=== PATIENT | female | born 1960 | race African-American/Black ===

== ENCOUNTER 2018-06-07 11:33 | Day surgery (SDC) | payer OTHER ==
[2018-06-07] MEDS ORDERED: PROPOFOL 20 ML ONE (13:51)
--- NOTE | 2018-06-07 13:57 | PROC ---
Endoscopy Procedure Endoscopy procedure completed. Please see scanned procedure report.
[2018-06-07 14:40] VITALS: TEMP 99.2
[2018-06-07 15:35] VITALS: BP 115/58; PULSE 60
== END 2018-06-07 15:55 | disposition home or self-care (01) ==
LOC: JASU-ENDO 11:33
PROVIDERS: ATTEND Internal Medicine Gastroenterology
PROC: 0DJD8ZZ Inspection of Lower Intestinal Tract, Via Natural or Artificial Opening Endoscopic (ICD-10-PCS; principal; 2018-06-07 12:30)
DX: Z12.11 Encounter for screening for malignant neoplasm of colon (principal); K64.8 Other hemorrhoids

== ENCOUNTER 2019-02-19 20:13 | Observation (INO) | payer OTHER ==
[2019-02-19] MEDS ORDERED: SODIUM CHLORIDE 0.9% 500 ML INFUS.BAG IV ONE (21:12)
[2019-02-19] MEDS ORDERED: morphine CARPU-JECT 2 MG/1 ML DISP.SYRIN IVPUSH ONE ×2 (21:12→21:34)
[2019-02-19] MEDS ORDERED: MORPHINE SULFATE 2 MG/ML VIAL ONE ×2 (21:14→21:34)
[2019-02-19] MEDS ORDERED: METOCLOPRAMIDE HCL INJECTION 10 MG/2 ML VIAL IVPUSH ONE (21:16)
[2019-02-19] MEDS ORDERED: FAMOTIDINE 20 MG/50 ML IVPB 20 MG/50 ML MG IVPB ONE ×2 (21:17→21:27)
[2019-02-19 21:22] LABS: BASO % 0.5 % (0-2.0); EOS % 0.1 % (0-4.5); HEMATOCRIT 40.5 % (32.4-45.2); HEMOGLOBIN 13.8 GM/dL (10.7-15.3); LYMPH % 6.5 % (8-40); MCH 33.7 pg (25.7-33.7); MCHC 34.1 g/dl (32.0-36.0); MEAN CELL VOLUME 98.9 fl (80-96); MEAN PLT VOLUME 9.2 fl (7.5-11.1); MONO % 2.8 % (3.8-10.2); NEUT % 90.1 % (42.8-82.8); PLATELET COUNT 247 K/MM3 (134-434); RBC 4.09 M/mm3 (3.60-5.2); RDW 13.7 % (11.6-15.6); WHITE BLOOD COUNT 16.1 K/mm3 (4.0-10.0)
[2019-02-19] MEDS ORDERED: METOCLOPRAMIDE HCL INJECTION 10 MG/2 ML VIAL ONE (21:27)
[2019-02-19] MEDS ORDERED: ACETAMINOPHEN INJECTION 100 ML IVPB ONE (21:37)
--- NOTE | 2019-02-19 21:44 | PDOC ---
History of Present Illness - General History Source: Patient - History of Present Illness Initial Comments: 02/19/19 21:45 The patient is a 58 year old female with a past medical history of epilepsy and stent here today for evaluation of abdominal pain. She reports that she has been having 10/10 abdominal pain since 10 AM today which is localized to the epigastric pain which waxes and wanes in severity but is always high severity. She notes associated nausea, non-bloody non-bilious vomiting (10 episodes), and non-bloody non-bilious diarrhea. She reports that her last PO intake was 10 AM. She reports that she went to a senior living [facility] last night and was drinking and eating but reports that no one else got sick. She also notes dry mouth. Patient denies headache, lightheadedness. Denies fever, chills. Denies chest pain, shortness of breath. Denies lower extremity edema. Allergies: NKA Surgical history: Torn leg muscle repair and hemorrhoid repair. Social history: Denies tobacco and illicit drugs. Confirms social drinking. Patient is a retired [employer] employee PCP: Nick Garcia <Damian Meyer - Last Filed: 02/19/19 21:45> <Mamie Pandey - Last Filed: 02/20/19 01:00> - General Chief Complaint: Nausea/Vomiting Stated Complaint: VOMITING/DIARRHEA Time Seen by Provider: 02/19/19 21:11 Past History <Damian Meyer - Last Filed: 02/19/19 21:45> - Past Medical History COPD: No HTN: Yes Seizures: Yes - Surgical History Cardiac Surgery: Yes (STENT) - Suicide/Smoking/Psychosocial Hx Smoking History: Never smoked Have you smoked in the past 12 months: No Hx Alcohol Use: Yes (OCCASIONALLY) Drug/Substance Use Hx: No <Mamie Pandey - Last Filed: 02/20/19 01:00> - Past Medical History Allergies/Adverse Reactions: Allergies Allergy/AdvReac Type Severity Reaction Status Date / Time No Known Allergies Allergy Verified 02/19/19 20:32 Home Medications: Ambulatory Orders Ascorbic Acid [Vitamin C] 500 mg PO DAILY 06/07/18 Aspirin [ASA -] 81 mg PO DAILY 06/07/18 Atenolol [Tenormin -] 50 mg PO DAILY 06/07/18 Calcium Citrate/Vitamin D2 [Uriel-Citrate Plus Vitamin D Tab] 1 each PO DAILY Carbamazepine [Tegretol -] 200 mg PO BID 06/07/18 [place]-3/Dha/Epa/Fish Oil [Fish Oil 500 mg Softgel] 1 each PO DAILY 06/07/18 Simvastatin 20 mg PO DAILY 06/07/18 Review of Systems - Review of Systems Able to Perform ROS?: Yes Comments:: 02/19/19 21:45 GENERAL/CONSTITUTIONAL: No fever or chills. No weakness. HEAD, EYES, EARS, NOSE AND THROAT: +dry mouth. No change in vision. No ear pain or discharge. No sore throat. CARDIOVASCULAR: No chest pain or shortness of breath. RESPIRATORY: No cough, wheezing, or hemoptysis. GASTROINTESTINAL: +abdominal pain. +nausea. +diarrhea. +vomiting. No constipation. GENITOURINARY: No dysuria, frequency, or change in urination. MUSCULOSKELETAL: No joint or muscle swelling or pain. No neck or back pain. SKIN: No rash NEUROLOGIC: No headache, vertigo, loss of consciousness, or change in strength/ sensation. ENDOCRINE: No increased thirst. No abnormal weight change. HEMATOLOGIC/LYMPHATIC: No anemia, easy bleeding, or history of blood clots. ALLERGIC/IMMUNOLOGIC: No hives or skin allergy. <Damian Meyer - Last Filed: 02/19/19 21:45> *Physical Exam - Vital Signs Last Vital Signs Temp Pulse Resp BP Pulse Ox 97.9 F 86 16 150/74 100 02/19/19 20:28 02/19/19 20:28 02/19/19 20:28 02/19/19 20:28 02/19/19 20:28 - Physical Exam Comments: 02/19/19 21:45 GENERAL: Awake, alert, and fully oriented, in no acute distress HEAD: No signs of trauma EYES: PERRLA, EOMI, sclera anicteric, conjunctiva clear ENT: Auricles normal inspection, hearing grossly normal, nares patent, oropharynx clear without exudates. Moist mucosa NECK: Normal ROM, supple, no lymphadenopathy, JVD, or masses LUNGS: Breath sounds equal, clear to auscultation bilaterally. No wheezes, and no crackles HEART: Regular rate and rhythm, normal S1 and S2, no murmurs, rubs or gallops ABDOMEN: +epigastric tenderness to palpation. +decreased bowel sounds. + distention. Soft. No guarding, no rebound. No masses EXTREMITIES: Normal range of motion, no edema. No clubbing or cyanosis. No cords, erythema, or tenderness NEUROLOGICAL: Cranial nerves II through XII grossly intact. Normal speech, normal gait SKIN: Warm, Dry, normal turgor, no rashes or lesions noted. <Damian Meyer - Last Filed: 02/19/19 21:45> - Vital Signs Last Vital Signs Temp Pulse Resp BP Pulse Ox 97.9 F 86 16 150/74 100 02/19/19 20:28 02/19/19 20:28 02/19/19 20:28 02/19/19 20:28 02/19/19 20:28 <Mamie Pandey - Last Filed: 02/20/19 01:00> Heart Score/ECG Review - Electrocardiogram EKG: Non specific repolarization disturbance - Age Age: 45-65 - Risk Factors Risk Factors Heart Score: Yes Smoking History, Yes Hx Obesity - ECG Intrepretation Rhythm: Regular Rhythm - [facility]: Normal - P and MO Prominent R with upright T in V1 (true posterior [place]): No Delta Wave(s) Present: No WPW: No - QRS Poor R Wave Progression: No Q Wave Present: No <Mamie Pandey - Last Filed: 02/20/19 01:00> ED Treatment Course - LABORATORY CBC & Chemistry Diagram: 02/19/19 21:10 02/19/19 21:10 - ADDITIONAL ORDERS Additional order review: 02/19/19 21:10 RBC 4.09 MCV 98.9 H MCHC 34.1 RDW 13.7 MPV 9.2 Neutrophils % 90.1 H Lymphocytes % 6.5 L Monocytes % 2.8 L Eosinophils % 0.1 Basophils % 0.5 - Medications Given in the ED: ED Medications Discontinued Medications Generic Name Dose Route Start Last Admin Trade Name Erickq PRN Reason Stop Dose Admin Metoclopramide HCl 10 mg 02/19/19 21:16 02/19/19 21:31 Reglan Injection - IVPUSH 02/19/19 21:17 10 mg ONCE ONE Administration Morphine Sulfate 2 mg 02/19/19 21:12 02/19/19 21:23 Morphine Injection - IVPUSH 02/19/19 21:13 2 mg ONCE ONE Administration Morphine Sulfate 2 mg 02/19/19 21:34 02/19/19 21:42 Morphine Injection - IVPUSH 02/19/19 21:35 2 mg ONCE ONE Administration Sodium Chloride 1,000 ml 02/19/19 21:12 02/19/19 21:23 Normal Saline - IV 02/19/19 21:13 1,000 ml ONCE ONE Administration <Damian Meyer - Last Filed: 02/19/19 21:45> - LABORATORY CBC & Chemistry Diagram: 02/19/19 21:10 02/19/19 21:10 - ADDITIONAL ORDERS Additional order review: 02/19/19 21:10 RBC 4.09 MCV 98.9 H MCHC 34.1 RDW 13.7 MPV 9.2 Neutrophils % 90.1 H Lymphocytes % 6.5 L Monocytes % 2.8 L Eosinophils % 0.1 Basophils % 0.5 - RADIOLOGY Radiology Studies Ordered: Category Date Time Status ABDOMEN FLAT & UPRIGHT [RAD] Stat Radiology 02/19/19 21:17 Ordered CHEST PA & LAT [RAD] Stat Radiology 02/19/19 21:17 Ordered - Medications Given in the ED: ED Medications Discontinued Medications Generic Name Dose Route Start Last Admin Trade Name Freq PRN Reason Stop Dose Admin Metoclopramide HCl 10 mg 02/19/19 21:16 02/19/19 21:31 Reglan Injection - IVPUSH 02/19/19 21:17 10 mg ONCE ONE Administration Morphine Sulfate 2 mg 02/19/19 21:12 02/19/19 21:23 Morphine Injection - IVPUSH 02/19/19 21:13 2 mg ONCE ONE Administration Sodium Chloride 1,000 ml 02/19/19 21:12 02/19/19 21:23 Normal Saline - IV 02/19/19 21:13 1,000 ml ONCE ONE Administration <Mamie Pandey - Last Filed: 02/20/19 01:00> Medical Decision Making - Medical Decision Making 02/19/19 22:07 AMylase lipase LFTs normal 02/19/19 22:24 non-obstructive gas pattern on XR CXR is normal 02/20/19 00:[address] Garcia/ [employer] hospitalist to telemetry observation. <Mamie Pandey - Last Filed: 02/20/19 01:00> *DC/Admit/Observation/Transfer - Attestations Scribe Attestion: 02/19/19 21:46 Documentation prepared by ELIA Horton, acting as forensic medical examiner for Mamie Pandey MD. <Damian Meyer - Last Filed: 02/19/19 21:45> - Discharge Dispostion Decision to Admit order: Yes <Mamie Pandey - Last Filed: 02/20/19 01:00> Diagnosis at time of Disposition: Epigastric pain, Nausea vomiting and diarrhea, CAD (coronary artery disease), Stented coronary artery - Discharge Dispostion Condition at time of disposition: Guarded
[2019-02-19 21:51] LABS: ALK PHOS 100 U/L (45-117); ANION GAP 10 MMOL/L (8-16); BILIRUBIN,TOTAL 0.4 mg/dL (0.2-1); BLOOD UREA NITROGEN 10 mg/dL (7-18); CALCIUM 9.4 mg/dL (8.5-10.1); CHLORIDE 104 mmol/L (98-107); CO2 25 mmol/L (21-32); CREATININE 0.9 mg/dL (0.55-1.3); GLUCOSE,RANDOM 139 mg/dL (74-106); LIPASE 87 U/L (73-393); POTASSIUM 3.3 mmol/L (3.5-5.1); SGOT/AST 22 U/L (15-37); SGPT/ALT 41 U/L (13-61); SODIUM 139 mmol/L (136-145); TOT PROT 7.5 g/dl (6.4-8.2)
[2019-02-19] MEDS ORDERED: MAGNESIUM SULF 50% (8.12 MEQ/2 ML-1 GM VIAL) IVPB ONE (21:51)
[2019-02-19] MEDS ORDERED: POTASSIUM CHLORIDE TABS 20 MEQ TABLET.ER (FP) PO ONE (21:52)
[2019-02-19] MEDS ORDERED: ONDANSETRON 4 MG/2 ML VIAL IVPB ONE (22:22)
--- NOTE | 2019-02-19 22:47 | HP ---
Admitting History and Physical - Primary Care Physician PCP: Nick Garcia - Admission Chief Complaint: Nausea, Vomiting, Diarrhea History of Present Illness: This is a 58 y/o woman with a PMHx of CAD s/p Stent. Who presents to the ED with epigastric pain, non bilious non bloody vomiting and diarrhea. Patient reports after celebrating at her care home alliance party she began having severe epigastric pain with multiple episodes of vomiting and diarrhea. Patient denies any other guests at her alliance party becoming ill. Patient denies fever, chills, cough , dizziness, SOB, CP, palpitations, constipation, dysuria. History Source: Patient Limitations to Obtaining History: No Limitations - Past Medical History Cardiovascular: Yes: CAD, HTN - Past Surgical History Past Surgical History: Yes: Stent - Smoking History Smoking history: Never smoked Have you smoked in the past 12 months: No - Alcohol/Substance Use Hx Alcohol Use: Yes (OCCASIONALLY) History of Substance Use: reports: None - Social History ADL: Independent History of Recent Travel: No Home Medications - Allergies Allergies/Adverse Reactions: Allergies Allergy/AdvReac Type Severity Reaction Status Date / Time No Known Allergies Allergy Verified 02/19/19 20:32 - Home Medications Home Medications: Ambulatory Orders Ascorbic Acid [Vitamin C] 500 mg PO DAILY 06/07/18 Aspirin [ASA -] 81 mg PO DAILY 06/07/18 Atenolol [Tenormin -] 50 mg PO DAILY 06/07/18 Calcium Citrate/Vitamin D2 [Uriel-Citrate Plus Vitamin D Tab] 1 each PO DAILY Carbamazepine [Tegretol -] 200 mg PO BID 06/07/18 [place]-3/Dha/Epa/Fish Oil [Fish Oil 500 mg Softgel] 1 each PO DAILY 06/07/18 Simvastatin 20 mg PO DAILY 06/07/18 Review of Systems - Review of Systems Constitutional: reports: Loss of Appetite Eyes: reports: No Symptoms HENT: reports: No Symptoms Neck: reports: No Symptoms Cardiovascular: reports: No Symptoms Respiratory: reports: No Symptoms Gastrointestinal: reports: Abdominal Pain, Diarrhea, Nausea, Vomiting. denies: Melena, Rectal Bleeding, Vomiting Blood Genitourinary: reports: No Symptoms Breasts: reports: No Symptoms Reported Musculoskeletal: reports: No Symptoms Integumentary: reports: No Symptoms Neurological: reports: No Symptoms Endocrine: reports: No Symptoms Hematology/Lymphatic: reports: No Symptoms Psychiatric: reports: No Symptoms Physical Examination Vital Signs: Vital Signs Temperature 97.9 F 02/19/19 20:28 Pulse Rate 86 02/19/19 20:28 Respiratory Rate 16 02/19/19 20:28 Blood Pressure 150/74 02/19/19 20:28 O2 Sat by Pulse Oximetry (%) 100 02/19/19 20:28 Constitutional: Yes: Well Nourished, No Distress, Calm Eyes: Yes: WNL, Conjunctiva Clear, EOM Intact, PERRL HENT: Yes: WNL, Atraumatic, Normocephalic Neck: Yes: WNL, Supple, Trachea Midline Cardiovascular: Yes: WNL, Regular Rate and Rhythm, S1, S2 Respiratory: Yes: WNL, Regular, CTA Bilaterally Gastrointestinal: Yes: Normal Bowel Sounds, Soft, Abdomen, Obese. No: Tenderness, Tenderness, Epigastrium Renal/: Yes: WNL Breast(s): Yes: WNL Musculoskeletal: Yes: WNL Extremities: Yes: WNL Edema: No Peripheral Pulses WNL: Yes Neurological: Yes: WNL, Alert, Oriented, Cran Nerves II-XII Intact ...Motor Strength: WNL Psychiatric: Yes: WNL, Alert, Oriented Labs: CBC, BMP 02/19/19 21:10 02/19/19 21:10 Laboratory Results - last 24 hr 02/19/19 02/19/19 21:10 21:10 WBC 16.1 H RBC 4.09 Hgb 13.8 Hct 40.5 MCV 98.9 H MCH 33.7 MCHC 34.1 RDW 13.7 Plt Count 247 MPV 9.2 Absolute Neuts (auto) 14.5 H Neutrophils % 90.1 H Lymphocytes % 6.5 L Monocytes % 2.8 L Eosinophils % 0.1 Basophils % 0.5 Nucleated RBC % 0 Sodium 139 Potassium 3.3 L Chloride 104 Carbon Dioxide 25 Anion Gap 10 BUN 10 Creatinine 0.9 Creat Clearance w eGFR 64.31 Random Glucose 139 H Calcium 9.4 Total Bilirubin 0.4 AST 22 ALT 41 Alkaline Phosphatase 100 Creatine Kinase 464 H Creatine Kinase Index 1.2 CK-MB (CK-2) 6.0 H Troponin I < 0.02 Total Protein 7.5 Albumin 4.0 Lipase 87 Imaging - Results Chest X-ray: Image Reviewed X-ray: Image Reviewed EKG: Image Reviewed Problem List - Problems (1) Epigastric pain Assessment/Plan: Likely secondary to Gastritis vs ACS Abdominal Xray image- gas pattern WBC 16, no L shift Blood Cultures-pending Lactic Acid- pending Clear Liquids ad junie Monitor CBC, BMP Monitor vitals Consider GI consult if condition worsens Code(s): R10.13 - EPIGASTRIC PAIN (2) Nausea vomiting and diarrhea Assessment/Plan: See above Zofran prn Stool Culture C- Diff Culture Monitor BMP Monitor vitals Continue IVF Code(s): R11.2 - NAUSEA WITH VOMITING, UNSPECIFIED; R19.7 - DIARRHEA, UNSPECIFIED (3) Abnormal EKG Assessment/Plan: Continue cardiac monitoring Serial enzymes Appreciate Cardiology consult Pt denies chest pain, palpitations Code(s): R94.31 - ABNORMAL ELECTROCARDIOGRAM [ECG] [EKG] (4) CAD (coronary artery disease) Assessment/Plan: Continue home meds EKG- Code(s): I25.10 - ATHSCL HEART DISEASE OF [place] CORONARY ARTERY W/O ANG PCTRS (5) Stented coronary artery Assessment/Plan: s/p Stent Code(s): Z95.5 - PRESENCE OF CORONARY ANGIOPLASTY IMPLANT AND GRAFT Assessment/Plan This is a 58 y/o woman with a PMHx of CAD (stent). Placed in Telemetry Observation for Epigastric Pain, Intractable Nausea and Vomiting, Abnormal EKG for further evaluation of their emergent condition. Plan: See Problem List FEN Replete lytes prn Clear Liquid Diet DVT ppx OOB SCDs Consider AC if LOS > 48 hrs Dispo: Observation Visit type - Emergency Visit Emergency Visit: Yes ED Registration Date: 02/19/19 Care time: The patient presented to the Emergency Department on the above date and was hospitalized for further evaluation of their emergent condition. - New Patient This patient is new to me today: Yes Date on this admission: 02/19/19 - Critical Care Critical Care patient: No
[2019-02-19] MEDS ORDERED: POTASSIUM CHLORIDE ORAL LIQUID 20 MEQ/15 ML ONE (23:14)
[2019-02-19] MEDS ORDERED: MAGNESIUM 1GM/D5W - 2 GM/200 ML IVPB IVPB ONE (23:14)
[2019-02-19] MEDS ORDERED: ONDANSETRON 4 MG/2 ML VIAL ONE (23:14)
[2019-02-20 07:05] LABS: BASO % 0.6 % (0-2.0); EOS % 0.1 % (0-4.5); HEMATOCRIT 37.5 % (32.4-45.2); HEMOGLOBIN 12.8 GM/dL (10.7-15.3); LYMPH % 15.6 % (8-40); MCH 33.4 pg (25.7-33.7); MCHC 34.1 g/dl (32.0-36.0); MEAN CELL VOLUME 98.1 fl (80-96); MEAN PLT VOLUME 8.7 fl (7.5-11.1); MONO % 6.1 % (3.8-10.2); NEUT % 77.6 % (42.8-82.8); PLATELET COUNT 224 K/MM3 (134-434); RBC 3.82 M/mm3 (3.60-5.2); RDW 13.4 % (11.6-15.6); WHITE BLOOD COUNT 14.4 K/mm3 (4.0-10.0)
[2019-02-20 07:48] LABS: ANION GAP 8 MMOL/L (8-16); BLOOD UREA NITROGEN 8 mg/dL (7-18); CALCIUM 8.6 mg/dL (8.5-10.1); CHLORIDE 108 mmol/L (98-107); CO2 25 mmol/L (21-32); CREATININE 0.8 mg/dL (0.55-1.3); GLUCOSE,RANDOM 121 mg/dL (74-106); PHOSPHOROUS 3.9 mg/dL (2.5-4.9); POTASSIUM 3.6 mmol/L (3.5-5.1); SODIUM 141 mmol/L (136-145)
[2019-02-20] MEDS: ATENOLOL 50 MG TABLET (FP) PO SCH (09:17)
[2019-02-20] MEDS: CALCIUM 500MG/VIT-D 200 UNITS COMBO TABLET (FP) PO SCH (09:17)
[2019-02-20] MEDS: carBAMazepine 200 MG TABLET PO SCH ×2 (09:17→22:11)
[2019-02-20] MEDS ORDERED: ASCORBIC ACID 500 MG TABLET (FP) PO SCH (10:00)
[2019-02-20] MEDS: PATIENT'S OWN MEDICATION (NON-FORMULARY) (Omega-3/Dha/Epa/Fish Oil [Fish Oil 500 Mg Softge PO SCH (10:07)
[2019-02-20] MEDS: BUDESONIDE/FORMETEROL FUMARATE 80/4.5 mcg INHALER IH SCH ×2 (11:25→22:11)
[2019-02-20] MEDS ORDERED: ONDANSETRON 4 MG/2 ML VIAL ONE (12:04)
[2019-02-20] MEDS ORDERED: ONDANSETRON 4 MG/2 ML VIAL IVPUSH ONE (12:08)
[2019-02-20] MEDS ORDERED: ONDANSETRON 4 MG/2 ML VIAL IVPUSH PRN (12:26)
[2019-02-20] MEDS ORDERED: ACETAMINOPHEN 325 MG TABLET (FP) PO PRN (12:26)
[2019-02-20] MEDS ORDERED: PANTOPRAZOLE SODIUM 40 MG in SODIUM CHLORIDE 100 ML IVPB SCH ×2 (12:30→22:00)
--- NOTE | 2019-02-20 12:32 | CON.CARD ---
Consult Consult Specialty:: cardiology Referred by:: Jose Reason for Consultation:: Coronary artery disease - History of Present Illness Chief Complaint: Abdominal pain, nausea and vomiting. History of Present Illness: The patient is a 58-year-old obese female, we have a history of hypertension, epilepsy, coronary artery disease and prior stent, now admitted with severe abdominal pains, nausea and vomiting and diarrhea. The patient is in significant distress. Very agitated. Cannot state still because of the pain. No chest pains. No palpitations. No shortness of breath. - History Source History Provided By: Patient, Medical Record Limitations to Obtaining History: No Limitations - Past Medical History Cardio/Vascular: Yes: CAD, HTN - Past Surgical History Past Surgical History: Yes: Stent - Alcohol/Substance Use Hx Alcohol Use: Yes (OCCASIONALLY) History of Substance Use: reports: None - Smoking History Smoking history: Never smoked Have you smoked in the past 12 months: No - Social History ADL: Independent History of Recent Travel: No Home Medications - Allergies Allergies/Adverse Reactions: Allergies Allergy/AdvReac Type Severity Reaction Status Date / Time No Known Allergies Allergy Verified 02/19/19 20:32 - Home Medications Home Medications: Ambulatory Orders Ascorbic Acid [Vitamin C] 500 mg PO DAILY 06/07/18 Aspirin [ASA -] 81 mg PO DAILY 06/07/18 Atenolol [Tenormin -] 50 mg PO DAILY 06/07/18 Calcium Citrate/Vitamin D2 [Uriel-Citrate Plus Vitamin D Tab] 1 each PO DAILY Carbamazepine [Tegretol -] 200 mg PO BID 06/07/18 [place]-3/Dha/Epa/Fish Oil [Fish Oil 500 mg Softgel] 1 each PO DAILY 06/07/18 Simvastatin 20 mg PO DAILY 06/07/18 Review of Systems - Review of Systems Constitutional: reports: Loss of Appetite Eyes: reports: No Symptoms HENT: reports: No Symptoms Neck: reports: No Symptoms Cardiovascular: reports: No Symptoms Respiratory: reports: No Symptoms Gastrointestinal: reports: Abdominal Pain, Diarrhea, Nausea, Vomiting Genitourinary: reports: No Symptoms Breasts: reports: No Symptoms Reported Musculoskeletal: reports: No Symptoms Integumentary: reports: No Symptoms Neurological: reports: No Symptoms Endocrine: reports: No Symptoms Hematology/Lymphatic: reports: No Symptoms Psychiatric: reports: No Symptoms Vital Signs: Vital Signs Temperature 98.1 F 02/20/19 06:57 Pulse Rate 83 02/20/19 06:30 Respiratory Rate 17 02/20/19 00:58 Blood Pressure 151/85 02/20/19 06:30 O2 Sat by Pulse Oximetry (%) 98 02/20/19 06:30 Constitutional: Yes: Moderate Distress, Obese Eyes: Yes: WNL, Conjunctiva Clear, EOM Intact HENT: Yes: WNL, Atraumatic, Normocephalic Neck: Yes: WNL, Supple, Trachea Midline Respiratory: Yes: WNL, Regular, CTA Bilaterally Gastrointestinal: Yes: Soft, Hypoactive Bowel Sounds, Tenderness, Vomiting Renal/: Yes: WNL Cardiovascular: Yes: WNL, Regular Rate and Rhythm JVD: No Carotid Bruit: No PMI: Non-Displaced Heart Sounds: Yes: S1, S2 Musculoskeletal: Yes: WNL Extremities: Yes: WNL Edema: No Peripheral Pulses WNL: Yes Integumentary: Yes: WNL Neurological: Yes: WNL, Alert, Oriented Psychiatric: Yes: WNL, Alert, Oriented - Other Data Labs, Other Data: CBC, BMP 02/20/19 06:30 02/20/19 06:30 Troponin, BNP 02/19/19 02/20/19 02/20/19 21:10 03:08 06:30 Troponin I < 0.02 0.03 0.04 Troponin, BNP 02/19/19 02/20/19 02/20/19 21:10 03:08 06:30 Troponin I < 0.02 0.03 0.04 Assessment/Plan The patient is a 58-year-old obese female, we have a history of hypertension, epilepsy, coronary artery disease and prior stent, now admitted with severe abdominal pains, nausea and vomiting and diarrhea. The patient is in significant distress. Very agitated. Cannot state still because of the pain. No chest pains. No palpitations. No shortness of breath. The patient reports no chest pains. She is breathing quite comfortably. There is no evidence of ischemia nor acute coronary syndrome. Troponins are within normal limits. There is no need for cardiac monitoring at this point. Please achieve good pain control for her abdominal pains.. The patient is in agony. No need for further cardiac workup at this point. Please do not hesitate to call us PRN.
[2019-02-20] MEDS ORDERED: PANTOPRAZOLE SODIUM 40 MG/100 ML BAG IVPB ONE (12:38)
[2019-02-20] MEDS ORDERED: MORPHINE SULFATE 2 MG/ML VIAL IVPUSH PRN (13:11)
[2019-02-20] MEDS ORDERED: MORPHINE SULFATE 2 MG/ML VIAL ONE (13:24)
[2019-02-20] MEDS ORDERED: VANCOMYCIN 1 GM in D5W (PRE-DOCKED) 1,000 MG/250 ML IVPB ONE (14:00)
[2019-02-20] MEDS ORDERED: PIPERACILLIN/TAZOB 3.375 GM 3.375 GM in DEXTROSE 5%-WATER - 50 ML IVPB ONE (14:17)
[2019-02-20] MEDS ORDERED: HYDROmorphone HCL CARPU-JECT 2 MG/1 ML DISP.SYRIN IVPUSH ONE (14:17)
[2019-02-20] MEDS ORDERED: HYDROmorphone HCl 2 MG/ML VIAL IVPUSH ONE (14:17)
--- NOTE | 2019-02-20 14:25 | PN ---
Progress Note (short form) - Note Progress Note: ID consult dictated imp/reccd 58 yo female seen in ER with abominal pain, nausea and vomiting and nonbloody diarrhea that began after she returned home Thursday night (her nursing home [facility]) she ate baked chicken and salad, drank ETOH did not feel better all day on Thursday and came to ED last night no further vomiting or diarrhea since arrival to ED continues with severe abdominal pain had a fever of 101.3 overnight she reports chills normal lipase cxray/axray in ED unremarkable also has elevated leukocytes acute severe abdominal pain ?food poisoning ?gastroenteritis agree with ct scan abd/pelvis blood cultures were sent empiric zosyn pending further workup continue IVF surgery/GI to evaluate d/w hospitalist Problem List - Problems (1) Abdominal pain Code(s): R10.9 - UNSPECIFIED ABDOMINAL PAIN (2) Nausea vomiting and diarrhea Code(s): R11.2 - NAUSEA WITH VOMITING, UNSPECIFIED; R19.7 - DIARRHEA, UNSPECIFIED
[2019-02-20] MEDS ORDERED: HYDROmorphone HCl 2 MG/ML VIAL ONE (14:26)
--- NOTE | 2019-02-20 14:29 | PN ---
Progress Note, Physician Chief Complaint: Acute Abdominal Pain History of Present Illness: c/o excruciating diffuse abdominal pain +N/V/D last vomiting and diarrhea prior to coming in to the hospital Had chicken+salad at her own shelter constitution party EKG-NSR 1st dose of morphine helped, but repeat dose didn't Just finished CT abd Received PPI, Reglan, Zofran - Current Medication List Current Medications: Active Medications Acetaminophen (Tylenol -) 650 mg PO Q4H PRN PRN Reason: PAIN OR FEVER Ascorbic Acid (Vitamin C -) 500 mg PO DAILY [facility] Last Admin: 02/20/19 09:17 Dose: 500 mg Aspirin (Asa -) 81 mg PO HS [facility] Atenolol (Tenormin -) 50 mg PO DAILY [facility] Last Admin: 02/20/19 09:17 Dose: 50 mg Atorvastatin Calcium (Lipitor -) 10 mg PO HS [facility] Budesonide/Formoterol Fumarate (Symbicort 80/4.5mcg -) 2 puff IH BID [facility] Last Admin: 02/20/19 11:25 Dose: Not Given Calcium Carbonate/Cholecalciferol (Os-Uriel 500+D -) 1 tab PO DAILY [facility] Last Admin: 02/20/19 09:17 Dose: 1 tab Carbamazepine (Tegretol -) 200 mg PO BID [facility] Last Admin: 02/20/19 09:17 Dose: 200 mg Hydromorphone HCl (Dilaudid Injection -) 2 mg IVPUSH ONCE ONE Stop: 02/20/19 14:18 Pantoprazole Sodium 40 mg/ (Sodium Chloride) 100 mls @ 200 mls/hr IVPB DAILY [facility] Last Admin: 02/20/19 12:40 Dose: 200 mls/hr Piperacillin Sod/Tazobactam (Sod 3.375 gm/ Dextrose) 50 mls @ 100 mls/hr IVPB ONCE ONE; Protocol Stop: 02/20/19 14:46 Morphine Sulfate (Morphine Sulfate) 2 mg IVPUSH Q4H PRN PRN Reason: PAIN LEVEL 6-10 Last Admin: 02/20/19 13:28 Dose: 2 mg Non-Formulary Medication ([place]-3/Dha/Epa/Fish Oil [Fish Oil 500 Mg Softgel]) 1 each PO DAILY [facility] Last Admin: 02/20/19 10:07 Dose: Not Given Ondansetron HCl (Zofran Injection) 4 mg IVPUSH Q6H PRN PRN Reason: NAUSEA AND/OR VOMITING Vancomycin HCl (Vancomycin (Pre-Docked)) 1,000 mg IVPB ONCE ONE; Protocol Stop: 02/20/19 14:18 - Objective Vital Signs: Vital Signs Temperature 98.1 F 02/20/19 06:57 Pulse Rate 72 02/20/19 13:40 Respiratory Rate 20 02/20/19 13:40 Blood Pressure 130/97 02/20/19 13:40 O2 Sat by Pulse Oximetry (%) 100 02/20/19 13:40 Constitutional: Yes: Well Nourished, Moderate Distress Cardiovascular: Yes: Regular Rate and Rhythm Respiratory: Yes: Regular Gastrointestinal: Yes: Normal Bowel Sounds, Soft, Tenderness (diffuse), Tenderness, Epigastrium, Tenderness, Rebound Musculoskeletal: Yes: WNL Extremities: Yes: WNL Edema: No Peripheral Pulses WNL: Yes Neurological: Yes: Alert, Oriented Psychiatric: Yes: Alert, Oriented Labs: CBC, BMP 02/20/19 06:30 02/20/19 06:30 Problem List - Problems (1) Abdominal pain Assessment/Plan: -CT abd/pelvis unremarkable -Seen by GI and ID -Gastritis vs infectious -PPI BID -Morphine 4 mg IVP Q4HPRN -NPO except meds -gentle IVF -IV abx -stool microbiology -Zofran 4 mg IVP Q6H PRN Code(s): R10.9 - UNSPECIFIED ABDOMINAL PAIN (2) History of seizure disorder Assessment/Plan: -Continue tegretol 200 mg po bid Code(s): Z86.69 - PERSONAL HISTORY OF DIS OF THE NERVOUS SYS AND SENSE ORGANS (3) Nausea vomiting and diarrhea Assessment/Plan: -CT abd/pelvis unremarkable -Seen by GI and ID -Gastritis vs infectious -PPI BID -Morphine 4 mg IVP Q4HPRN -NPO except meds -gentle IVF -IV abx -stool microbiology -Zofran 4 mg IVP Q6H PRN Code(s): R11.2 - NAUSEA WITH VOMITING, UNSPECIFIED; R19.7 - DIARRHEA, UNSPECIFIED Assessment/Plan see problem list observe, if stable can be discharged tomorrow
[2019-02-20 14:58] LABS: EPI CELLS 11.1 /HPF (0-5/HPF); URINE APPEARANCE CLEAR; URINE BACTERIA 131.1 /hpf (NEGATIVE); URINE BILIRUBIN NEGATIVE (NEGATIVE); URINE CASTS 13 /hpf (0-8); URINE COLOR YELLOW; URINE GLUCOSE (UA) NEGATIVE (NEGATIVE); URINE KETONE TRACE (NEGATIVE); URINE LEUK ESTERASE TRACE (NEGATIVE); URINE NITRITE NEGATIVE (NEGATIVE); URINE PROTEIN TRACE (NEGATIVE); URINE RBC 7 /hpf (0-4); URINE WBC 5 /hpf (0-5)
--- NOTE | 2019-02-20 14:58 | CON.GI ---
Consult Consult Specialty:: GI Referred by:: Mitchell Hollis Reason for Consultation:: Abdominal pain, vomiting, diarrhea - History of Present Illness Chief Complaint: vomiting, diarrhea, abd pain History of Present Illness: 58 y.o. woman developed abdominal pain, diarrhea, vomiting, and sweats about 6- 8 hours after a penitentiary libertarian in which she had appetizers, hot dogs, and alcoholic drinks. History of epilepsy, no seizure in many years by her report. In ER found to have elevated WBC, somewhat elevated CPK, normal troponin, nl LFTs, negative abdominal CT scan. No diarrhea or vomiting in past 20 hours. - Past Medical History HOSPITAL INTERNSHIP: Yes: Seizure Cardio/Vascular: Yes: CAD, HTN - Past Surgical History Past Surgical History: Yes: Stent - Alcohol/Substance Use Hx Alcohol Use: Yes (OCCASIONALLY) History of Substance Use: reports: None - Smoking History Smoking history: Never smoked Have you smoked in the past 12 months: No - Social History ADL: Independent History of Recent Travel: No Home Medications - Allergies Allergies/Adverse Reactions: Allergies Allergy/AdvReac Type Severity Reaction Status Date / Time No Known Allergies Allergy Verified 02/19/19 20:32 - Home Medications Home Medications: Ambulatory Orders Ascorbic Acid [Vitamin C] 500 mg PO DAILY 06/07/18 Aspirin [ASA -] 81 mg PO DAILY 06/07/18 Atenolol [Tenormin -] 50 mg PO DAILY 06/07/18 Calcium Citrate/Vitamin D2 [Uriel-Citrate Plus Vitamin D Tab] 1 each PO DAILY Carbamazepine [Tegretol -] 200 mg PO BID 06/07/18 [place]-3/Dha/Epa/Fish Oil [Fish Oil 500 mg Softgel] 1 each PO DAILY 06/07/18 Simvastatin 20 mg PO DAILY 06/07/18 Physical Exam-GI Vital Signs: Vital Signs Temperature 98.1 F 02/20/19 06:57 Pulse Rate 72 02/20/19 13:40 Respiratory Rate 20 02/20/19 13:40 Blood Pressure 130/97 02/20/19 13:40 O2 Sat by Pulse Oximetry (%) 100 02/20/19 13:40 Constitutional: Yes: Obese ...Auscultate: Yes: Normoactive Bowel Sounds ...Palpate: Yes: Other (No tenderness at all on exam now) Labs: CBC, BMP 02/20/19 06:30 02/20/19 06:30 Imaging - Results Cat Scan: Report Reviewed, Image Reviewed Problem List - Problems (1) Nausea vomiting and diarrhea Code(s): R11.2 - NAUSEA WITH VOMITING, UNSPECIFIED; R19.7 - DIARRHEA, UNSPECIFIED Assessment/Plan Likely food poisoning or food-borne infection. If she has more diarrhea would obtain stool culture for enteric pathogens, stool for C.difficile, norovirus. No sign of pancreatitis or acute surgical abdomen. Note she had a negative colonoscopy last year.
[2019-02-20] MEDS ORDERED: PIPERACILLIN/TAZOB 3.375 GM 3.375 GM/50 ML BAG IVPB ONE ×2 (15:18→20:51)
[2019-02-20] MEDS ORDERED: VANCOMYCIN 1 GRAM (PRE-DOCKED) 1,000 MG/250 ML BAG IVPB ONE (15:18)
[2019-02-20] MEDS: PIPERACILLIN/TAZOB 3.375 GM 3.375 GM in DEXTROSE 5%-WATER - 50 ML IVPB SCH ×2 (15:53→21:09)
[2019-02-20] MEDS: PANTOPRAZOLE SODIUM 40 MG VIAL IVPUSH SCH (21:07)
[2019-02-20] MEDS ORDERED: ATORVASTATIN CA 10 MG TABLET (FP) ONE (21:46)
[2019-02-20] MEDS ORDERED: PANTOPRAZOLE SODIUM 40 MG VIAL ONE (21:46)
[2019-02-20] MEDS ORDERED: carBAMazepine 200 MG TABLET ONE (21:46)
[2019-02-20] MEDS ORDERED: ASPIRIN 81 MG CHEWABLE TABLETS PO SCH (22:00)
[2019-02-20] MEDS: ATORVASTATIN CA 10 MG TABLET (FP) PO SCH (22:11)
--- NOTE | 2019-02-20 23:44 | CONS ---
DATE OF CONSULTATION: DATE OF DICTATION: 02/20/2019 This is a 58-year-old woman who I saw in the emergency room with abdominal pain, nausea, and vomiting that began after she returned home Thursday night after her nursing home libertarian. She had chicken and salad there. She drank alcohol. She did not feel better all day on Thursday. She continued to have abdominal pain, nausea, and vomiting. She started having diarrhea, which was nonbloody. She came to the emergency room last night. She has had no further vomiting or diarrhea since arrival to the ER. She does complain of severe midepigastric pain and was noted to have a fever of 101.3 overnight. She reports chills. Labs are notable for an elevated white count of 16,000 with a normal lipase. Chest x-ray and abdominal x-ray in the ER were unremarkable. She denies eating any seafood. She last traveled 2 months ago when she went out of town. It is very difficult to examine her as she is complaining of severe pain and is periodically having crying. PAST MEDICAL HISTORY: Notable for coronary artery disease, hypertension, and seizure disorder. She has had a stent placed in the past. She has never had any abdominal surgery. There is no history of cigarette use. She does drink alcohol. She never had pain like this before. REVIEW OF SYSTEMS: There is no history of any ulcer disease. She does not know if anybody else at the nursing home libertarian got sick. There were no unusual foods that she ate there and earlier that day she had a couple of hot dogs. ALLERGIES: No known drug allergies. MEDICATIONS: Include vitamin C, aspirin, atenolol, calcium citrate, Tegretol, fish oil, and simvastatin. She has no eaten since all of these symptoms began after her libertarian. PHYSICAL EXAMINATION: Vital Signs: Her temperature is 98.1. She had a fever of 101.3 overnight. Pulse of 72, blood pressure 130/97, respiratory rate 20, saturating 100% on room air. HEENT: She is normocephalic. Eyes are anicteric. Neck: Supple. Lungs: Clear to auscultation. Heart: Regular rate and rhythm. Abdomen: Soft. She has bowel sounds. She has diffuse tenderness in the epigastric area. Extremities: Without edema. She has no rash. LABORATORY: White count is 16.1 on admission. This morning it was 14.4. Hemoglobin is 12.8, platelets of 224. BUN 8, creatinine of 0.8. LFTs are normal. CK is elevated at 510. Urinalysis is negative. Influenza screen is negative. Cultures are pending. IN SUMMARY: This is a 58-year-old woman with what appears to be a gastroenteritis, but she is having severe abdominal pain at this time. Vomiting and diarrhea have stopped. I would agree with the CAT scan of the abdomen and pelvis that has been ordered STAT. Blood cultures were sent. I would treat her empirically with Zosyn to cover intraabdominal pathology until the CAT scan results are back. Continue IV fluids and consider Surgery and GI evaluation. If she has further diarrhea, sending stool studies would be appropriate, but she states her diarrhea has stopped. Further recommendations to follow. CROW IGLESIAS M.D. MARIAH/[id number] MTDD
[2019-02-21] MEDS ORDERED: DEXTROSE 5%-WATER - 50 ML IVPB ONE ×2 (01:26→09:18)
[2019-02-21] MEDS ORDERED: PIPERACILLIN/TAZOBACTAM 3.375 GM VIAL IVPB ONE ×2 (01:26→09:18)
[2019-02-21] MEDS: PIPERACILLIN/TAZOB 3.375 GM 3.375 GM in DEXTROSE 5%-WATER - 50 ML IVPB SCH ×2 (02:12→09:59)
[2019-02-21 02:30] VITALS: BMI 31.9
[2019-02-21 05:48] LABS: BASO % 0.8 % (0-2.0); EOS % 0.6 % (0-4.5); HEMATOCRIT 35.9 % (32.4-45.2); HEMOGLOBIN 12.3 GM/dL (10.7-15.3); LYMPH % 23.6 % (8-40); MCH 34.1 pg (25.7-33.7); MCHC 34.4 g/dl (32.0-36.0); MEAN CELL VOLUME 99.3 fl (80-96); MEAN PLT VOLUME 8.6 fl (7.5-11.1); MONO % 5.8 % (3.8-10.2); NEUT % 69.2 % (42.8-82.8); PLATELET COUNT 198 K/MM3 (134-434); RBC 3.62 M/mm3 (3.60-5.2); RDW 12.9 % (11.6-15.6); WHITE BLOOD COUNT 10.4 K/mm3 (4.0-10.0)
[2019-02-21 06:25] LABS: ALBUMIN 3.4 g/dl (3.4-5.0); ALK PHOS 70 U/L (45-117); ANION GAP 6 MMOL/L (8-16); BILIRUBIN,TOTAL 0.5 mg/dL (0.2-1); BLOOD UREA NITROGEN 9 mg/dL (7-18); CALCIUM 8.6 mg/dL (8.5-10.1); CHLORIDE 108 mmol/L (98-107); CO2 28 mmol/L (21-32); CREATININE 0.8 mg/dL (0.55-1.3); GLUCOSE,RANDOM 111 mg/dL (74-106); POTASSIUM 3.6 mmol/L (3.5-5.1); SGOT/AST 19 U/L (15-37); SGPT/ALT 32 U/L (13-61); SODIUM 141 mmol/L (136-145)
--- NOTE | 2019-02-21 09:39 | PN ---
Progress Note (short form) - Note Progress Note: no further fever abdominal pain resolved no vomiting or diarrhea ct scan- no acute pathology Vital Signs Period Temp Pulse Resp BP Sys/Romano Pulse Ox Last 24 Hr 98.2 F-98.7 F 64-72 16-20 130-167/75-97 97-100 cor-rrr llungs clear abd soft,nt ext no edema CBC, BMP 02/21/19 05:30 02/21/19 05:30 Microbiology 02/20/19 03:08 Blood - Peripheral Venous Blood Culture - Preliminary NO GROWTH OBTAINED AFTER 24 HOURS, INCUBATION TO CONTINUE FOR 4 DAYS. 02/20/19 03:08 Blood - Peripheral Venous Blood Culture - Preliminary NO GROWTH OBTAINED AFTER 24 HOURS, INCUBATION TO CONTINUE FOR 4 DAYS. a/p ?acute food poisoning with negative ct findings, will d/c elaine consider advancing diet as abdominal pain has resolved no further diarrhea or vomiting
[2019-02-21] MEDS: PANTOPRAZOLE SODIUM 40 MG VIAL IVPUSH SCH ×2 (09:54→21:54)
[2019-02-21] MEDS: carBAMazepine 200 MG TABLET PO SCH ×2 (09:54→21:54)
[2019-02-21] MEDS: ATENOLOL 50 MG TABLET (FP) PO SCH (09:54)
[2019-02-21] MEDS: CALCIUM 500MG/VIT-D 200 UNITS COMBO TABLET (FP) PO SCH (09:54)
[2019-02-21] MEDS: BUDESONIDE/FORMETEROL FUMARATE 80/4.5 mcg INHALER IH SCH ×2 (09:59→21:54)
--- NOTE | 2019-02-21 10:33 | EKG ---
Test Reason : Blood Pressure : / mmHG Vent. Rate : 081 BPM Atrial Rate : 081 BPM P-R Int : 182 ms QRS Dur : 092 ms QT Int : 360 ms P-R-T Axes : 058 051 071 degrees QTc Int : 418 ms NORMAL SINUS RHYTHM NONSPECIFIC T WAVE ABNORMALITY ABNORMAL ECG NO PREVIOUS ECGS AVAILABLE Confirmed by EVANGELINA BUTLER, RAMAN ([id number]) on 02/21/2019 10:32:33 AM Referred By: Confirmed By:RAMAN HUTCHINSON MD
[2019-02-21] MEDS ORDERED: SIMETHICONE 40 MG/0.6 ML BOTTLE PO PRN (12:18)
--- NOTE | 2019-02-21 12:20 | PN ---
Progress Note, Physician Chief Complaint: patient seen and examined tried to eat regular food today mashed potates feels bloating cannot eat no more diarrhea ct scan no acute pathology seen by GI and ID - Current Medication List Current Medications: Active Medications Aspirin (Asa -) 81 mg PO [facility] Atenolol (Tenormin -) 50 mg PO DAILY [facility] Last Admin: 02/21/19 09:54 Dose: 50 mg Atorvastatin Calcium (Lipitor -) 10 mg PO HS [facility] Last Admin: 02/20/19 22:11 Dose: 10 mg Budesonide/Formoterol Fumarate (Symbicort 80/4.5mcg -) 2 puff IH BID [facility] Last Admin: 02/21/19 09:59 Dose: Not Given Calcium Carbonate/Cholecalciferol (Os-Uriel 500+D -) 1 tab PO DAILY [facility] Last Admin: 02/21/19 09:54 Dose: 1 tab Carbamazepine (Tegretol -) 200 mg PO BID [facility] Last Admin: 02/21/19 09:54 Dose: 200 mg Morphine Sulfate (Morphine Sulfate) 2 mg IVPUSH Q4H PRN PRN Reason: PAIN LEVEL 6-10 Last Admin: 02/20/19 13:28 Dose: 2 mg Non-Formulary Medication ([place]-3/Dha/Epa/Fish Oil [Fish Oil 500 Mg Softgel]) 1 each PO DAILY [facility] Last Admin: 02/20/19 10:07 Dose: Not Given Ondansetron HCl (Zofran Injection) 4 mg IVPUSH Q6H PRN PRN Reason: NAUSEA AND/OR VOMITING Pantoprazole Sodium (Protonix Iv) 40 mg IVPUSH BID [facility] Last Admin: 02/21/19 09:54 Dose: 40 mg - Objective Vital Signs: Vital Signs Temperature 98.2 F 02/21/19 06:00 Pulse Rate 71 02/21/19 06:00 Respiratory Rate 18 02/21/19 06:00 Blood Pressure 154/84 02/21/19 06:00 O2 Sat by Pulse Oximetry (%) 97 02/20/19 23:45 Constitutional: Yes: Mild Distress Cardiovascular: Yes: Regular Rate and Rhythm, S1, S2 Respiratory: Yes: CTA Bilaterally Gastrointestinal: Yes: Normal Bowel Sounds, Soft, Distention, Other Edema: No Neurological: Yes: Alert, Oriented Labs: CBC, BMP 02/21/19 05:30 02/21/19 05:30 Problem List - Problems (1) Abdominal pain Assessment/Plan: abdominal xray today clear liquids cannot tolerate regular diet iv ppi simethicone cannot be discharged today Code(s): R10.9 - UNSPECIFIED ABDOMINAL PAIN (2) CAD (coronary artery disease) Assessment/Plan: lipitor ,tenormin and aspirin Code(s): I25.10 - ATHSCL HEART DISEASE OF [place] CORONARY ARTERY W/O ANG PCTRS
--- NOTE | 2019-02-21 14:41 | PN ---
Progress Note (short form) - Note Progress Note: Patient seen and examined Labs reviewed Ate solid food but felt bloating and upper abdominal pain and could not continue No N/V Vital Signs Temp 98.2 F 02/21/19 06:00 Pulse 71 02/21/19 06:00 Resp 18 02/21/19 06:00 BP 154/84 02/21/19 06:00 Pulse Ox 97 02/20/19 23:45 NAD soft obese ttp epigastrium, mild distention Labs reviewed CBC, BMP 02/21/19 05:30 02/21/19 05:30 Hepatic Panel Total Bilirubin 0.5 mg/dL (0.2-1) 02/21/19 05:30 AST 19 U/L (15-37) 02/21/19 05:30 ALT 32 U/L (13-61) 02/21/19 05:30 Alkaline Phosphatase 70 U/L (45-117) 02/21/19 05:30 Albumin 3.4 g/dl (3.4-5.0) 02/21/19 05:30 Impression is still that of self limited gastroenteritis Once daily PPI Trial of simethicone Will follow
[2019-02-21] MEDS ORDERED: PT OWN MED DRAWER 7, Y5N ONE ×2 (16:51→21:41)
[2019-02-21] MEDS: PATIENT'S OWN MEDICATION (NON-FORMULARY) (Omega-3/Dha/Epa/Fish Oil [Fish Oil 500 Mg Softge PO SCH (18:16)
[2019-02-21] MEDS: ATORVASTATIN CA 10 MG TABLET (FP) PO SCH (21:54)
[2019-02-22 06:42] LABS: BASO % 0.6 % (0-2.0); EOS % 1.8 % (0-4.5); HEMATOCRIT 36.9 % (32.4-45.2); HEMOGLOBIN 13.1 GM/dL (10.7-15.3); LYMPH % 14.4 % (8-40); MCH 34.6 pg (25.7-33.7); MCHC 35.6 g/dl (32.0-36.0); MEAN PLT VOLUME 8.6 fl (7.5-11.1); MONO % 5.4 % (3.8-10.2); NEUT % 77.8 % (42.8-82.8); PLATELET COUNT 194 K/MM3 (134-434); RDW 12.6 % (11.6-15.6); WHITE BLOOD COUNT 11.1 K/mm3 (4.0-10.0)
[2019-02-22 07:15] LABS: ALBUMIN 3.4 g/dl (3.4-5.0); ALK PHOS 74 U/L (45-117); ANION GAP 5 MMOL/L (8-16); BILIRUBIN,TOTAL 0.5 mg/dL (0.2-1); BLOOD UREA NITROGEN 7 mg/dL (7-18); CALCIUM 8.4 mg/dL (8.5-10.1); CHLORIDE 105 mmol/L (98-107); CO2 28 mmol/L (21-32); CREATININE 0.7 mg/dL (0.55-1.3); GLUCOSE,RANDOM 102 mg/dL (74-106); POTASSIUM 3.5 mmol/L (3.5-5.1); SGOT/AST 17 U/L (15-37); SGPT/ALT 37 U/L (13-61); SODIUM 139 mmol/L (136-145); TOT PROT 6.5 g/dl (6.4-8.2)
--- NOTE | 2019-02-22 08:20 | PN ---
Progress Note, Physician - Current Medication List Current Medications: Active Medications Aspirin (Asa -) 81 mg PO [facility] Atenolol (Tenormin -) 50 mg PO DAILY [facility] Last Admin: 02/21/19 09:54 Dose: 50 mg Atorvastatin Calcium (Lipitor -) 10 mg PO HS [facility] Last Admin: 02/21/19 21:54 Dose: 10 mg Budesonide/Formoterol Fumarate (Symbicort 80/4.5mcg -) 2 puff IH BID [facility] Last Admin: 02/21/19 21:54 Dose: Not Given Calcium Carbonate/Cholecalciferol (Os-Uriel 500+D -) 1 tab PO DAILY [facility] Last Admin: 02/21/19 09:54 Dose: 1 tab Carbamazepine (Tegretol -) 200 mg PO BID [facility] Last Admin: 02/21/19 21:54 Dose: 200 mg Morphine Sulfate (Morphine Sulfate) 2 mg IVPUSH Q4H PRN PRN Reason: PAIN LEVEL 6-10 Last Admin: 02/20/19 13:28 Dose: 2 mg Ondansetron HCl (Zofran Injection) 4 mg IVPUSH Q6H PRN PRN Reason: NAUSEA AND/OR VOMITING Pantoprazole Sodium (Protonix Iv) 40 mg IVPUSH BID [facility] Last Admin: 02/21/19 21:54 Dose: 40 mg Simethicone (Mylicon Liquid -) 80 mg PO QID PRN PRN Reason: bloating Last Admin: 02/21/19 16:57 Dose: 80 mg - Objective Vital Signs: Vital Signs Temperature 98.1 F 02/22/19 06:00 Pulse Rate 63 02/22/19 06:00 Respiratory Rate 20 02/22/19 06:00 Blood Pressure 150/71 02/22/19 06:00 O2 Sat by Pulse Oximetry (%) 97 02/21/19 23:57 Cardiovascular: Yes: Regular Rate and Rhythm Respiratory: Yes: Regular, CTA Bilaterally Gastrointestinal: Yes: Normal Bowel Sounds, Soft. No: Tenderness Labs: CBC, BMP 02/22/19 05:30 02/22/19 05:30 Problem List - Problems (1) Abdominal pain Assessment/Plan: Resolved abdominal xray w stool ct no acute path clear liquids tolerated-advance diet iv ppi --to po simethicone if tolerating diet then dc Code(s): R10.9 - UNSPECIFIED ABDOMINAL PAIN (2) Elevated CK Assessment/Plan: -trend trop neg Code(s): R74.8 - ABNORMAL LEVELS OF OTHER SERUM ENZYMES (3) CAD (coronary artery disease) Assessment/Plan: lipitor ,tenormin and aspirin Code(s): I25.10 - ATHSCL HEART DISEASE OF [place] CORONARY ARTERY W/O ANG PCTRS (4) History of seizure disorder Assessment/Plan: same meds Code(s): Z86.69 - PERSONAL HISTORY OF DIS OF THE NERVOUS SYS AND SENSE ORGANS
[2019-02-22] MEDS: carBAMazepine 200 MG TABLET PO SCH ×2 (09:30→21:40)
[2019-02-22] MEDS: CALCIUM 500MG/VIT-D 200 UNITS COMBO TABLET (FP) PO SCH (09:30)
[2019-02-22] MEDS: ATENOLOL 50 MG TABLET (FP) PO SCH (09:31)
[2019-02-22] MEDS: BUDESONIDE/FORMETEROL FUMARATE 80/4.5 mcg INHALER IH SCH ×2 (09:39→21:40)
[2019-02-22] MEDS: PANTOPRAZOLE SODIUM 40 MG VIAL IVPUSH SCH (11:02)
--- NOTE | 2019-02-22 12:25 | PN.GI ---
GI Progress Note Subjective: No diarrhea No vomiting Tolerated lunch today Stool culture pending AXR yesterday unrevealing - Objective Vital Signs: Vital Signs Temperature 98.5 F 02/22/19 10:00 Pulse Rate 70 02/22/19 10:00 Respiratory Rate 20 02/22/19 10:00 Blood Pressure 146/87 02/22/19 10:00 O2 Sat by Pulse Oximetry (%) 97 02/21/19 23:57 Constitutional: Calm Eyes: No: Sclera Icterus Cardiovascular: Yes: Regular Rate and Rhythm Respiratory: Yes: CTA Bilaterally Gastrointestinal Inspection: No: Distention ...Auscultate: Yes: Normoactive Bowel Sounds ...Palpate: Yes: Soft. No: Hepatomegaly, Splenomegaly, Tenderness Labs: CBC, BMP 02/22/19 05:30 02/22/19 05:30 Problem List - Problems (1) Gastroenteritis Assessment/Plan: suspect self limited gastroenteritis vs. food poisoning Clinically improved and tolerating PO If continues to tolerate, D/C home and outpatient follow-up Low residue diet for now Code(s): K52.9 - NONINFECTIVE GASTROENTERITIS AND COLITIS, UNSPECIFIED
[2019-02-22] MEDS: ATORVASTATIN CA 10 MG TABLET (FP) PO SCH (21:40)
[2019-02-23 08:30] VITALS: BP 151/78
--- NOTE | 2019-02-23 08:35 | DS ---
Physical Examination Vital Signs: Vital Signs Temperature 97.7 F 02/23/19 06:00 Pulse Rate 70 02/23/19 06:00 Respiratory Rate 18 02/23/19 06:27 Blood Pressure 151/78 02/23/19 06:00 O2 Sat by Pulse Oximetry (%) 99 02/23/19 06:27 Constitutional: Yes: No Distress Eyes: Yes: WNL HENT: Yes: WNL Neck: Yes: WNL Cardiovascular: Yes: WNL Respiratory: Yes: WNL Gastrointestinal: Yes: WNL Renal/: Yes: WNL Musculoskeletal: Yes: WNL Extremities: Yes: WNL Edema: No Integumentary: Yes: WNL Wound/Incision: Yes: Clean/Dry Neurological: Yes: WNL ...Motor Strength: WNL Psychiatric: Yes: WNL Labs: CBC, BMP 02/22/19 05:30 02/22/19 05:30 Discharge Summary Reason For Visit: NAUSEA/VOMITING/DIARRHEA/PRESENCE OF STENT IN Current Active Problems Abdominal pain (Acute) Abnormal EKG (Acute) CAD (coronary artery disease) (Acute) Elevated CK (Acute) Epigastric pain (Acute) Gastroenteritis (Acute) History of seizure disorder (Acute) Nausea vomiting and diarrhea (Acute) Stented coronary artery (Acute) Procedures: Principal: ct scan abd/pel Hospital Course: ADMITTED ACUTE GASTROENTERITIS/RHABDOMYALISIS TRETAED WITH IVF, IV MEDS. PPI. ANTIEMETICS AND WORKED UP BY GI Condition: Improved - Instructions Diet, Activity, Other Instructions: SEE DR MARS IN 1 WEEK FOR LABS LOW FAT DIET Disposition: HOME - Home Medications Comprehensive Discharge Medication List: Ambulatory Orders Ascorbic Acid [Vitamin C] 500 mg PO DAILY 06/07/18 Aspirin [ASA -] 81 mg PO HS 06/07/18 Atenolol [Tenormin -] 50 mg PO DAILY 06/07/18 Calcium Citrate/Vitamin D2 [Uriel-Citrate Plus Vitamin D Tab] 1 each PO DAILY Carbamazepine [Tegretol -] 200 mg PO BID 06/07/18 [place]-3/Dha/Epa/Fish Oil [Fish Oil 500 mg Softgel] 1 each PO DAILY 06/07/18 Simvastatin 20 mg PO HS 06/07/18
[2019-02-23] MEDS ORDERED: PT OWN MED DRAWER 7, Y5N ONE (09:13)
[2019-02-23] MEDS: CALCIUM 500MG/VIT-D 200 UNITS COMBO TABLET (FP) PO SCH (09:21)
[2019-02-23] MEDS: carBAMazepine 200 MG TABLET PO SCH (09:21)
[2019-02-23] MEDS: BUDESONIDE/FORMETEROL FUMARATE 80/4.5 mcg INHALER IH SCH (09:22)
[2019-02-23] MEDS: ATENOLOL 50 MG TABLET (FP) PO SCH (09:22)
[2019-02-23] MEDS ORDERED: PANTOPRAZOLE 40 MG TABLET (FP) PO SCH (10:00)
[2019-02-23 11:32] VITALS: PULSE 74; TEMP 97.4
--- NOTE | 2019-02-23 12:21 | PN.GI ---
GI Progress Note Subjective: Pt seen/examined at bedside, feeling well, no further abdominal pain. Stool more formed, no blood. Tolerating regular diet. Possible DC today. - Objective Vital Signs: Vital Signs Temperature 97.4 F L 02/23/19 10:00 Pulse Rate 74 02/23/19 10:00 Respiratory Rate 16 02/23/19 10:00 Blood Pressure 151/78 02/23/19 10:00 O2 Sat by Pulse Oximetry (%) 99 02/23/19 09:00 Constitutional: Well Nourished, No Distress Cardiovascular: Yes: WNL, Regular Rate and Rhythm Respiratory: Yes: WNL, Regular, CTA Bilaterally Gastrointestinal Inspection: Yes: WNL ...Auscultate: Yes: Normoactive Bowel Sounds ...Palpate: Yes: Other (Abd soft, nt, nd) Labs: CBC, BMP 02/22/19 05:30 02/22/19 05:30 Problem List - Problems (1) Nausea vomiting and diarrhea Assessment/Plan: 58yo female presenting with abdominal pain, n/v and diarrhea now resolved, likely self limiting gastroenteritis. Campylobacter and norovirus pending, remainder of stool infectious workup negative. -Continue supportive measures -Diet as tolerated -If dc being planned today, pt can follow up with GI as outpatient Code(s): R11.2 - NAUSEA WITH VOMITING, UNSPECIFIED; R19.7 - DIARRHEA, UNSPECIFIED
== END 2019-02-23 12:43 | disposition home or self-care (01) ==
LOC: SUPCPDRO 20:13 → JER 20:13 → JERBED 22:23 → J4S 02-20 23:06
PROVIDERS: ADMIT Family Medicine; ATTEND Family Medicine
PROC: 3E033NZ Introduction of Analgesics, Hypnotics, Sedatives into Peripheral Vein, Percutaneous Approach (ICD-10-PCS; principal; 2019-02-19)
PROC: 3E0337Z Introduction of Electrolytic and Water Balance Substance into Peripheral Vein, Percutaneous Approach (ICD-10-PCS; 2019-02-19)
PROC: 3E033GC Introduction of Other Therapeutic Substance into Peripheral Vein, Percutaneous Approach (ICD-10-PCS; 2019-02-19)
DX: K52.9 Noninfective gastroenteritis and colitis, unspecified (principal); R10.13 Epigastric pain; R11.2 Nausea with vomiting, unspecified; R19.7 Diarrhea, unspecified; I10 Essential (primary) hypertension; I25.10 Atherosclerotic heart disease of native coronary artery without angina pectoris; G40.909 Epilepsy, unspecified, not intractable, without status epilepticus; Z95.5 Presence of coronary angioplasty implant and graft; Z79.82 Long term (current) use of aspirin; E66.9 Obesity, unspecified; Z68.32 Body mass index [BMI] 32.0-32.9, adult; R74.8 Abnormal levels of other serum enzymes; R94.31 Abnormal electrocardiogram [ECG] [EKG]
CPT/HCPCS: 36415; 71046-TC-FY; 74019-TC-FY; 74176-TC; 80048; 80053; 81003; 82550; 82553; 83036; 83605; 83690; 83735; 84100; 84484; 85025; 87040; 87045; 87046; 87086; 87798; 87804; 93005; 93010; 99284-25; G0378

== ENCOUNTER → 2019-10-14 | Day surgery (SDC) | payer OTHER ==
[2019-10-13 15:18] VITALS: BMI 33.0
[~2019-10-14] MED LIST: BUPIVACAINE HCL/PF 0.5% (5 MG/ML) 30 ML VIAL IJ ONE; EPHEDRINE SULFATE/0.9% NACL/PF 50 MG/10 ML SYRINGE NR ONE; LACTATED RINGERS SOLUTION 1,000 ML IV SCH; LIDOCAINE 1%-EPI 1:100,000 30 ML MDV IJ ONE; LIDOCAINE 1%/EPI 1:100000 (20 ML MULTI DOSE VIAL) IJ ONE; LIDOCAINE HCL/PF 2% SDV 5ML VIAL ONE; MEPERIDINE HCL 25 MG/ML VIAL ONE; MEPERIDINE HCL CARPU-JECT 25 MG/1 ML DISP.SYRIN IVPUSH ONE; MIDAZOLAM HCL 2 MG/2 ML SINGLE DOSE VIAL ONE; ONDANSETRON 4 MG/2 ML VIAL IVPUSH PRN; PROPOFOL 20 ML ONE; SUCCINYLCHOLINE CHLORIDE 200 MG/10 ML SYRINGE ONE; ceFAZolin SODIUM 1 GM VIAL IVPB ONE; oxyCODONE HCL 5 MG TABLET PO PRN
--- NOTE | 2019-10-14 07:59 | HP ---
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 Cardiovascular: Yes: CAD, HTN - Current Medications Current Medications: Home Medications Medication Instructions Recorded Ascorbic Acid [Vitamin C] 500 mg PO DAILY 06/07/18 Aspirin [ASA -] 81 mg PO HS 06/07/18 Atenolol [Tenormin -] 50 mg PO DAILY 06/07/18 Calcium Citrate/Vitamin D2 1 each PO DAILY 06/07/18 [Uriel-Citrate Plus Vitamin D Tab] Carbamazepine [Tegretol -] 200 mg PO BID 06/07/18 [place]-3/Dha/Epa/Fish Oil [Fish Oil 1 each PO DAILY 06/07/18 500 mg Softgel] Simvastatin 20 mg PO HS 06/07/18 Mometasone/Formoterol [Dulera 200 2 inh IH BID 10/13/19 Mcg/5 Mcg Inhaler] Oxycodone HCl/Acetaminophen 1 tab PO Q6H #20 tablet MDD 4 10/14/19 [Percocet 5-325 mg Tablet] Satellite Physical Exam - Physical Examination Vital Signs: Vital Signs Period Temp Pulse Resp BP Sys/Romano Pulse Ox Last 24 Hr 97.9 F-97.9 F 65-65 20-20 137-137/85-85 98 General Appearance: Well Nourished, Well Developed, Alert & Oriented x3 ENT: Clear Lung: Normal air movement Extremities: Other (right knee- +swelling, + ttp, decr rom, + mcmurrays, nvi, MRi + lmt, synovitis, OA) Neurological: Intact, Alert, Oriented Satellite Impression/Plan - Impression/Plan Impression: right knee internal derangement Operative Procedure: right knee arthroscopy Date to be Performed: 10/14/19
--- NOTE | 2019-10-14 09:38 | OP ---
Operative Note - Note: Operative Date: 10/14/19 ([facility]) Pre-Operative Diagnosis: right knee internal derangement Operation: right knee arthroscopy with PLM Post-Operative Diagnosis: Same as Pre-op Surgeon: Luis Felipe Mccauley Anesthesia: General, Local Specimens Removed: shavings Estimated Blood Loss (mls): 5
[2019-10-14 10:11] VITALS: TEMP 98
[2019-10-14 12:20] VITALS: BP 139/70; PULSE 73
--- NOTE | 2019-10-14 13:18 | OP ---
DATE OF OPERATION: 10/14/2019 PREOPERATIVE DIAGNOSIS: Internal derangement, right knee. POSTOPERATIVE DIAGNOSIS: Internal derangement, right knee. PROCEDURE: Arthroscopy of the right knee with partial lateral medial meniscectomy. SURGICAL ATTENDING: Luis Felipe Mccauley MD ANESTHESIA: General with LMA. CLOSURE: 4-0 nylon. COMPLICATIONS: None. CONDITION: To recovery room in stable condition. DESCRIPTION OF OPERATIVE PROCEDURE: Patient was taken to the operating room on October 14, 2019. General anesthesia with LMA was administered by the anesthesiologist. The right lower extremity was prepped and draped in the usual sterile fashion. The medial and lateral infrapatellar portal sites were infiltrated with 1% Xylocaine with epinephrine. Both portals were then made with a 15 blade followed by a blunt trocar. The scope trocar was then placed up into the subacromial pouch and the knee was inflated with a cocktail of 10 mL of 1% Xylocaine, 10 mL of 0.5% Marcaine, and 20 mL of arthroscopic saline. After allowing the anesthetic to work in the knee, the procedure was performed. The pouch was visualized to be clean. The medial and lateral gutters were visualized to be clean. The undersurface of the patella and trochlea were visualized to be intact. With valgus stress on the knee, the medial compartment was entered. At 90 degrees, the ACL was visualized and probed and found to be intact. In the figure 4 position, the lateral compartment was entered. The lateral meniscus was visualized, probed, and found to have a complex tear. This was debrided back to smooth stable meniscal tissue using a meniscal biter and arthroscopic shaver. The lateral femoral condyle was run and found to be intact as was the lateral tibial plateau. The knee was irrigated with copious amounts of irrigation. The fluid was drained. The portals were closed; 20 mL of 0.5% Marcaine was infused into the knee for postoperative analgesia. A sterile pressure dressing was applied. Patient awakened from anesthesia and transferred to recovery room in stable condition. No complication. Estimated blood loss negligible. Eliana ALMONTE/[id number]
--- NOTE | 2019-10-17 16:20 | PATH ---
Surgical Pathology Report Patient Name: EDUARDO REGALADO [facility]. Rec. #: [id number] /Age/Gender: 1960 (Age: 59) / F Account: [id number] Location: [facility]ICAL Taken: 10/14/2019 Received: 10/14/2019 Reported: 10/17/2019 Physicians: Luis Felipe Mccauley M.D. Specimen(s) Received RIGHT KNEE SHAVINGS Clinical History Right knee tear Final Diagnosis KNEE SHAVINGS, RIGHT, ARTHROSCOPY, PARTIAL LATERAL MENISCECTOMY: FRAGMENTS OF CARTILAGE, DENSE FIBROCONNECTIVE TISSUE, ADIPOSE TISSUE, AND REACTIVE SYNOVIUM WITH MILD CHRONIC INFLAMMATION. Electronically Signed Cintia Kauffman M.D. Gross Description Received in formalin, labeled "right knee shavings," is a 6.0 x 4.5 x 0.5 cm. aggregate of higgins-yellow soft tissue fragments. A member service representative portion is submitted in one cassette. /10/14/2019 [facility]10/14/2019
== END | disposition home or self-care (01) ==
LOC: JASU-SURG 06:14
PROVIDERS: ATTEND Orthopaedic Surgery
PROC: 0SBD4ZZ Excision of Left Knee Joint, Percutaneous Endoscopic Approach (ICD-10-PCS; principal; 2019-10-14 08:00)
DX: S83.231A Complex tear of medial meniscus, current injury, right knee, initial encounter (principal); X58.XXXA Exposure to other specified factors, initial encounter; Y93.89 Activity, other specified; Y92.9 Unspecified place or not applicable; Y99.9 Unspecified external cause status
CPT/HCPCS: 88304-TC; 94760

== ENCOUNTER 2019-12-16 04:11 | Emergency (ER) | payer OTHER ==
[2019-12-16] MEDS ORDERED: MAG HYDROX/AL HYDROX/SIMETH 30 ML UNIT-DOSE CUP PO ONE (05:05)
[2019-12-16] MEDS ORDERED: SODIUM CHLORIDE 1,000 ML IV STA (05:05)
[2019-12-16] MEDS ORDERED: LIDOCAINE VISCOUS 2% ORAL/TOP 20 ML UNIT-DOSE CUP MM ONE ×2 (05:05→05:34)
[2019-12-16] MEDS ORDERED: FAMOTIDINE 20 MG/50 ML IVPB 20 MG/50 ML MG IVPB ONE ×2 (05:05→05:34)
[2019-12-16] MEDS ORDERED: ONDANSETRON 4 MG/2 ML VIAL IVPUSH ONE (05:25)
[2019-12-16] MEDS ORDERED: LIDOCAINE VISCOUS 2% ORAL/TOP 20 ML UNIT-DOSE CUP ONE (05:34)
[2019-12-16] MEDS ORDERED: MAG HYDROX/AL HYDROX/SIMETH 30 ML UNIT-DOSE CUP ONE (05:34)
[2019-12-16] MEDS ORDERED: ONDANSETRON 4 MG/2 ML VIAL ONE (05:34)
--- NOTE | 2019-12-16 05:49 | PDOC ---
Attending Attestation - Resident Resident Name: Meir Torres - ED Attending Attestation I have performed the following: I have examined & evaluated the patient, The case was reviewed & discussed with the resident, I agree w/resident's findings & plan, Exceptions are as noted - HPI HPI: 12/22/19 21:48 See resident HPI - Physicial Exam PE: 12/22/19 21:48 Agree with exam - Medical Decision Making 12/22/19 21:52 Severe epigastric px after eating consider gastritis, gerd, ulcer, ty, pancreatitis, less likely acs f/u labs, ivf hydration symptomatic tx POCUS gb Tolerating po w/o issue, currently symptom free, bedisde US inconsistent with acute ty dc home, f/u pcp, gi
[2019-12-16 06:02] LABS: BASO % 0.6 % (0-2.0); EOS % 0.3 % (0-4.5); HEMOGLOBIN 15.1 GM/dL (10.7-15.3); LYMPH % 6.6 % (8-40); MCH 33.6 pg (25.7-33.7); MCHC 34.3 g/dl (32.0-36.0); MEAN CELL VOLUME 98.1 fl (80-96); MEAN PLT VOLUME 9.2 fl (7.5-11.1); MONO % 1.8 % (3.8-10.2); NEUT % 90.7 % (42.8-82.8); PLATELET COUNT 243 K/MM3 (134-434); RBC 4.48 M/mm3 (3.60-5.2); RDW 13.2 % (11.6-15.6); WHITE BLOOD COUNT 17.3 K/mm3 (4.0-10.0)
--- NOTE | 2019-12-16 06:04 | PDOC ---
History of Present Illness - General Chief Complaint: Nausea/Vomiting Stated Complaint: VOMITING.ABDOMINAL PAIN Time Seen by Provider: 12/16/19 05:14 History Source: Patient Exam Limitations: No Limitations - History of Present Illness Initial Comments: Char Bermudez is a 59 yo f w a hx of CAD s/p stent, HTN, and gastritis who presents to the [facility] er with epigastric abdominal pain which began at 12 in the morning. She states that yesterday evening she ate multiple hot dogs at 10 pm and then 2 hours later she woke up with intense epigastric and LUQ abdominal discomfort. She waited at home for 3 hours hoping it would subside but when it didn't go away she came to the ER to be evaluated. She states she has had this pain in the past and she was diagnosed with gastritis. She said that last time her pain went away after getting pepcid and maalox. She states that at 2 in the morning she had 2 episodes of loose stools which were not quite diarrhea but they were loose. She denies any blood in her stools. She endorses nausea but denies emesis. PCP: Nick Garcia PSH: Stent Social Hx: recreational alcohol usage Allergies: NKA, NKDA Past History - Past Medical History Allergies/Adverse Reactions: Allergies Allergy/AdvReac Type Severity Reaction Status Date / Time No Known Allergies Allergy Verified 10/14/19 06:45 Home Medications: Ambulatory Orders Ascorbic Acid [Vitamin C] 500 mg PO DAILY 06/07/18 Aspirin [ASA -] 81 mg PO HS 06/07/18 Atenolol [Tenormin -] 50 mg PO DAILY 06/07/18 Calcium Citrate/Vitamin D2 [Uriel-Citrate Plus Vitamin D Tab] 1 each PO DAILY Carbamazepine [Tegretol -] 200 mg PO BID 06/07/18 [place]-3/Dha/Epa/Fish Oil [Fish Oil 500 mg Softgel] 1 each PO DAILY 06/07/18 Simvastatin 20 mg PO HS 06/07/18 Mometasone/Formoterol [Dulera 200 Mcg/5 Mcg Inhaler] 2 inh IH BID 10/13/19 Oxycodone HCl/Acetaminophen [Percocet 5-325 mg Tablet] 1 tab PO Q6H #20 tablet MDD 4 10/14/19 Anemia: No Asthma: No Cancer: No Cardiac Disorders: Yes (CAD with stent 1999) CVA: No COPD: No CHF: No Dementia: No Diabetes: No GI Disorders: No Disorders: No HTN: Yes Hypercholesterolemia: Yes Liver Disease: No Seizures: Yes (epilepsy last one 1999) Thyroid Disease: No - Surgical History Cardiac Surgery: Yes (STENT) Orthopedic Surgery: Yes (left knee torn musle repair) - Immunization History Immunization Up to Date: No - Psycho Social/Smoking Cessation Hx Smoking History: Never smoked Have you smoked in the past 12 months: No Hx Alcohol Use: Yes (OCCASIONALLY) Drug/Substance Use Hx: Yes (occasional marijuana) Substance Use Type: Alcohol, Marijuana Hx Substance Use Treatment: No Review of Systems - Review of Systems Able to Perform ROS?: Yes Comments:: CONSTITUTIONAL: Absent: fever, no chills, no fatigue EYES: Absent: visual changes ENT: Absent: ear pain, no sore throat CARDIOVASCULAR: Absent: chest pain, no palpitations RESPIRATORY: Absent: cough, no SOB GI: Present: Abdominal pain, nausea, loose stools Absent: no vomiting, no constipation, no diarrhea GENITOURINARY: Absent: dysuria, no frequency, no hematuria MUSKULOSKELETAL: Absent: back pain, no arthralgia, no myalgia SKIN: Absent: rash NEURO: Absent: headache *Physical Exam - Physical Exam GENERAL: Well-appearing, well-nourished. No apparent distress. HEENT: Normocephalic, atraumatic. PERRL, EOM intact. CARDIOVASCULAR: Normal S1, S2. Regular rate and rhythm. PULMONARY: No evidence of respiratory distress. Lungs clear to auscultation bilaterally. No wheezing, rales or rhonchi. ABDOMEN: There is mild LUQ TP. Soft, non-distended, normal bowel sounds, no rebound or guarding. EXTREMITIES: Normal ROM in all four extremities. No gross deformities. SKIN: Warm, dry. No rash NEUROLOGICAL: No focal neurological deficits. ED Treatment Course - LABORATORY CBC & Chemistry Diagram: 12/16/19 05:32 12/16/19 05:32 Medical Decision Making - Medical Decision Making Char Bermudez is a 59 yo f w a hx of CAD s/p stent, HTN, and gastritis who presents to the [facility] er with epigastric abdominal pain which began at 12 in the morning. She states that yesterday evening she ate multiple hot dogs at 10 pm and then 2 hours later she woke up with intense epigastric and LUQ abdominal discomfort. She waited at home for 3 hours hoping it would subside but when it didn't go away she came to the ER to be evaluated. She states she has had this pain in the past and she was diagnosed with gastritis. She said that last time her pain went away after getting pepcid and maalox. She states that at 2 in the morning she had 2 episodes of loose stools which were not quite diarrhea but they were loose. She denies any blood in her stools. She endorses nausea but denies emesis. Vital Signs Temp Pulse Resp BP Pulse Ox 98.3 F 67 16 147/77 99 12/16/19 05:45 12/16/19 05:45 12/16/19 05:45 12/16/19 05:45 12/16/19 05:45 DDx IBNLT: Cholecystitis, pancreatitis, gastritis, GERD, PUD, electrolyte/ metabolic disturbance, ACS Plan: Bedside POCUS GB, labs, IV hydration, analgesia, re-assessment: POCUS GB: Patient has a normal apearing gallbladder without stones. Neg sono price. wall thickness is .24 mm. CBD is not dilated. Neg sono price. No lizbeth- chol fluid. Impression: No evidence of gallstones or cholecystitis Labs: Leukocytosis w/ left shift, likely reactive. Lipase WNL. Re-assessment: Patient is walking around the ED without any discomfort. She is eating and drinking and appears very well. She thinks this was a gastritis flare up and she states she felt better almost immediately after pepcid and maalox. She would like to go home and states she will follow up with her PCP ad GI doc and she says she will come back to the ER immediately if her pain comes back or she gets worse in any capacity. Dispo: Home with PCP and GI fu Discharge - Discharge Information Problems reviewed: Yes Clinical Impression/Diagnosis: Epigastric pain, Nausea vomiting and diarrhea Abdominal pain Qualifiers: Abdominal location: left upper quadrant Qualified Code(s): R10.12 - Left upper quadrant pain Condition: Improved Disposition: HOME - Admission No - Follow up/Referral Referrals: Nick Garcia MD [Primary Care Provider] - Earnest Puga MD [Staff Physician] - Celso Dsouza DO [Staff Physician] - - Patient Discharge Instructions Patient Printed Discharge Instructions: Acute Abdominal Pain, Gastritis ( Alternative Therapy), Gastritis, [place] Diet, DI for Gastritis Additional Instructions: You came into the Er with abdominal pain. We believe you had a flare up of gastritis. Take pepto bismol, maalox, or other over the counter antacid medications. Please come back to the ER immediately if your pain worsens or you have any other new or worsening concerns. Call up the stomach doctor we are referring you to and schedule a follow up appointment in the next 2 to 4 days. Thank you for coming to the [facility] Er. We hope you feel better soon! Print Language: KAZAKH - Post Discharge Activity
[2019-12-16 06:18] VITALS: TEMP 98.3; BMI 32.3
[2019-12-16 06:35] LABS: ALBUMIN 4.3 g/dl (3.4-5.0); ALK PHOS 124 U/L (45-117); ANION GAP 8 MMOL/L (8-16); BILIRUBIN,TOTAL 0.3 mg/dL (0.2-1); BLOOD UREA NITROGEN 10.7 mg/dL (7-18); CALCIUM 9.9 mg/dL (8.5-10.1); CHLORIDE 107 mmol/L (98-107); CO2 23 mmol/L (21-32); CREATININE 0.8 mg/dL (0.55-1.3); GLUCOSE,RANDOM 121 mg/dL (74-106); LIPASE 174 U/L (73-393); SGOT/AST 25 U/L (15-37); SGPT/ALT 41 U/L (13-61); SODIUM 138 mmol/L (136-145); TOT PROT 8.1 g/dl (6.4-8.2)
[2019-12-16 07:06] VITALS: BP 136/82; PULSE 79
--- NOTE | 2019-12-16 12:21 | EKG ---
Test Reason : Blood Pressure : / mmHG Vent. Rate : 068 BPM Atrial Rate : 068 BPM P-R Int : 166 ms QRS Dur : 086 ms QT Int : 376 ms P-R-T Axes : 055 046 054 degrees QTc Int : 399 ms NORMAL SINUS RHYTHM NONSPECIFIC T WAVE ABNORMALITY ABNORMAL ECG WHEN COMPARED WITH ECG OF 19-FEB-2019 21:55, NO SIGNIFICANT CHANGE WAS FOUND Confirmed by BETINA MAE MD ([id number]) on 12/16/2019 12:20:47 PM Referred By: Confirmed By:BETINA MAE MD
== END 2019-12-16 07:00 | disposition home or self-care (01) ==
LOC: JER 04:11
PROC: 3E033GC Introduction of Other Therapeutic Substance into Peripheral Vein, Percutaneous Approach (ICD-10-PCS; principal; 2019-12-16)
DX: R10.12 Left upper quadrant pain (principal); R11.2 Nausea with vomiting, unspecified; I10 Essential (primary) hypertension; Z95.5 Presence of coronary angioplasty implant and graft; K52.9 Noninfective gastroenteritis and colitis, unspecified; I25.10 Atherosclerotic heart disease of native coronary artery without angina pectoris
CPT/HCPCS: 36415; 80053; 82550; 83690; 84484; 85025; 93005; 93010; 99283-25; J7030

== ENCOUNTER 2019-12-16 11:37 | Emergency (ER) | payer OTHER ==
[2019-12-16 11:49] VITALS: BMI 32.3
[2019-12-16] MEDS ORDERED: MAG HYDROX/AL HYDROX/SIMETH 30 ML UNIT-DOSE CUP PO ONE (12:25)
[2019-12-16] MEDS ORDERED: SODIUM CHLORIDE 1,000 ML IV STA (12:25)
[2019-12-16] MEDS ORDERED: FAMOTIDINE 20 MG/50 ML IVPB 20 MG/50 ML MG IVPB ONE ×2 (12:25→12:32)
[2019-12-16] MEDS ORDERED: MAG HYDROX/AL HYDROX/SIMETH 30 ML UNIT-DOSE CUP ONE (12:32)
--- NOTE | 2019-12-16 12:44 | PDOC ---
History of Present Illness - General History Source: Patient Exam Limitations: Clinical Condition - History of Present Illness Initial Comments: 12/16/19 12:39 Patient with history of coronary disease, hypertension , hyperlipidemia and gastritis presented with complaint of 2-day history of epigastric pain which she describes as burning epigastric pain which is typical for gastritis flareup. Patient was seen for same symptoms overnight and reported improvement on Pepcid and Maalox which usually helps with symptoms but came back again this morning. Blood work done overnight shows elevated WBC of 17 with normal LFTs. [id number] ultrasound done by overnight team showed no cholecystitis or gallstones. Patient report attempted to make appointment with GI as instructed this morning but pain came back so she came back to the emergency room. Denies fever, chills, nausea, vomiting, diarrhea or constipation. Denies any other symptoms Is this a multiple visit Asthma Patient?: No Timing/Duration: other (2 days) <Rafa Bragg - Last Filed: 12/16/19 15:19> <Joey Blanco - Last Filed: 12/16/19 16:45> - General Chief Complaint: Pain Stated Complaint: ABD PAIN Time Seen by Provider: 12/16/19 12:07 Past History - Past Medical History Anemia: No Asthma: No Cancer: No Cardiac Disorders: Yes (CAD with stent 1999) CVA: No COPD: No CHF: No Dementia: No Diabetes: No GI Disorders: No Disorders: No HTN: Yes Hypercholesterolemia: Yes Liver Disease: No Seizures: Yes (epilepsy last one 1999) Thyroid Disease: No - Surgical History Cardiac Surgery: Yes (STENT) Orthopedic Surgery: Yes (left knee torn musle repair) - Immunization History Immunization Up to Date: No - Psycho Social/Smoking Cessation Hx Smoking History: Current some day smoker Have you smoked in the past 12 months: No Information on smoking cessation initiated: No Hx Alcohol Use: No Drug/Substance Use Hx: Yes (marijuana) Substance Use Type: Alcohol, Marijuana Hx Substance Use Treatment: No <Rafa Bragg - Last Filed: 12/16/19 15:19> <Joey Blanco - Last Filed: 12/16/19 16:45> - Past Medical History Allergies/Adverse Reactions: Allergies Allergy/AdvReac Type Severity Reaction Status Date / Time No Known Allergies Allergy Verified 12/16/19 11:49 Home Medications: Ambulatory Orders Ascorbic Acid [Vitamin C] 500 mg PO DAILY 06/07/18 Aspirin [ASA -] 81 mg PO HS 06/07/18 Atenolol [Tenormin -] 50 mg PO DAILY 06/07/18 Calcium Citrate/Vitamin D2 [Uriel-Citrate Plus Vitamin D Tab] 1 each PO DAILY Carbamazepine [Tegretol -] 200 mg PO BID 06/07/18 [place]-3/Dha/Epa/Fish Oil [Fish Oil 500 mg Softgel] 1 each PO DAILY 06/07/18 Simvastatin 20 mg PO HS 06/07/18 Mometasone/Formoterol [Dulera 200 Mcg/5 Mcg Inhaler] 2 inh IH BID 10/13/19 Oxycodone HCl/Acetaminophen [Percocet 5-325 mg Tablet] 1 tab PO Q6H #20 tablet MDD 4 10/14/19 Famotidine [Pepcid -] 40 mg PO DAILY #7 tablet 12/16/19 Ondansetron [Zofran *Odt*] 4 mg SL Q8H PRN #12 od.tablet 12/16/19 Review of Systems - Review of Systems Able to Perform ROS?: Yes Is the patient limited Irish proficient: No Constitutional: No: Chills, Fever, Malaise HEENTM: No: Symptoms Reported, See HPI, Eye Pain, Blurred Vision, Tearing, Recent change in vision, Double Vision, Cataracts, Ear Pain, Ocular Prothesis, Ear Discharge, Nose Pain, Nose Congestion, Tinnitus, Nose Bleeding, Hearing Loss , Throat Pain, Throat Swelling, Mouth Pain, Dental Problems, Difficulty Swallowing, Mouth Swelling, Other Respiratory: No: Symptoms reported, See HPI, Cough, Orthopnea, Shortness of Breath, SOB with Exertion, SOB at Rest, Stridor, Wheezing, Productive cough, Hemoptysis, Other Cardiac (ROS): No: Symptoms Reported, See HPI, Chest Pain, Edema, Irregular Heart Rate, Lightheadedness, Palpitations, Syncope, Chest Tightness, Other ABD/GI: Yes: Symptoms Reported, See HPI, Abdominal cramping (epigastric pain). No: Abd. Pain w/ defecation, Blood Streaked Bowels, Difficulty Swallowing, Nausea, Poor Appetite, Vomiting, Indigestion : No: Symptoms Reported, Frequency, Urgency All Other Systems: Reviewed and Negative <Yemi,Rafa Amanuel - Last Filed: 12/16/19 15:19> *Physical Exam - Vital Signs Last Vital Signs Temp Pulse Resp BP Pulse Ox 97.9 F 71 16 153/71 97 12/16/19 11:46 12/16/19 11:46 12/16/19 11:46 12/16/19 11:46 12/16/19 11:46 - Physical Exam General Appearance: Yes: Nourished, Appropriately Dressed. No: Apparent Distress HEENT: positive: MIRNA, Normal ENT Inspection, Pharynx Normal Neck: positive: Supple Respiratory/Chest: positive: Lungs Clear, Normal Breath Sounds. negative: Respiratory Distress, Accessory Muscle Use Cardiovascular: positive: Regular Rhythm, Regular Rate Gastrointestinal/Abdominal: positive: Normal Bowel Sounds, Tender (mild epigastric TTP), Flat. negative: Organomegaly, Distended, Guarding, Rebound Musculoskeletal: negative: CVA Tenderness Extremity: positive: Normal Inspection Integumentary: positive: Normal Color Neurologic: positive: Fully Oriented, Alert, Normal Mood/Affect, Normal Response <Rafa Bragg - Last Filed: 12/16/19 15:19> - Vital Signs Last Vital Signs Temp Pulse Resp BP Pulse Ox 97.8 F 72 18 153/83 98 12/16/19 15:13 12/16/19 15:13 12/16/19 15:13 12/16/19 15:13 12/16/19 15:13 <Joey Blanco - Last Filed: 12/16/19 16:45> ED Treatment Course - RADIOLOGY Radiology Studies Ordered: Category Date Time Status ABDOMEN US -LIMITED [US] Stat Ultrasound 12/16/19 12:37 Ordered <Rafa Bragg - Last Filed: 12/16/19 15:19> - Medications Given in the ED: ED Medications Discontinued Medications Generic Name Dose Route Start Last Admin Trade Name Freq PRN Reason Stop Dose Admin Al Hydroxide/Mg Hydroxide 30 ml 12/16/19 12:25 12/16/19 12:44 Mylanta Oral Suspension - PO 12/16/19 12:26 30 ml ONCE ONE Administration Famotidine/Sodium Chloride 20 mg in 50 mls @ 100 mls/hr 12/16/19 12:25 12:44 Pepcid 20 Mg Premixed Ivpb - IVPB 12/16/19 12:54 100 mls/hr ONCE ONE Administration Sodium Chloride 1,000 mls @ 1,000 mls/hr 12/16/19 12:25 12/16/19 12:44 Normal Saline - IV 12/16/19 13:24 1,000 mls/hr ASDIR STA Administration <Joey Blanco - Last Filed: 12/16/19 16:45> Medical Decision Making - Medical Decision Making 12/16/19 12:42 Patient with history of coronary disease, hypertension , hyperlipidemia and gastritis presented with complaint of 2-day history of epigastric pain which she describes as burning epigastric pain which is typical for gastritis flareup. Patient was seen for same symptoms overnight and reported improvement on Pepcid and Maalox which usually helps with symptoms but came back again this morning. Blood work done overnight shows elevated WBC of 17 with normal LFTs. [id number] ultrasound done by overnight team showed no cholecystitis or gallstones. Patient report attempted to make appointment with GI as instructed this morning but pain came back so she came back to the emergency room. Denies fever, chills, nausea, vomiting, diarrhea or constipation. Denies any other symptoms Exam significant for mild epigastric tenderness without guarding or rebound otherwise unremarkable exam. Patient afebrile. Given previous ultrasound was done on bedside, will do official order ultrasound to rule out cholecystitis. IV hydration with normal saline 500 mg and Pepcid 20 mg IV and Maalox ordered for abdominal discomfort. Reassess after medication and imaging 12/16/19 14:57 Abdominal ultrasound unremarkable. Patient had reported improvement of pain but now started feeling pain again. Tylenol 1 g IV ordered for pain 12/16/19 15:19 Patient with improvement of pain with Tylenol. Patient stable for discharge on Pepcid 40 mg daily, maalox as needed for abdominal discomfort and Zofran with GI follow-up <Rafa Bragg - Last Filed: 12/16/19 15:19> - Medical Decision Making 12/16/19 16:45 I reviewed the case of the mid-level practitioner and was available for consultation while in the emergency department p <Joey Blanco - Last Filed: 12/16/19 16:45> Discharge - Discharge Information Problems reviewed: Yes - Admission No <Rafa Bragg - Last Filed: 12/16/19 15:19> <Joey Blanco - Last Filed: 12/16/19 16:45> - Discharge Information Clinical Impression/Diagnosis: Epigastric pain Condition: Improved Disposition: HOME - Additional Discharge Information Prescriptions: Famotidine [Pepcid -] 40 mg PO DAILY #7 tablet Ondansetron [Zofran *Odt*] 4 mg SL Q8H PRN #12 od.tablet PRN Reason: nausea - Follow up/Referral Referrals: Nick Garcia MD [Primary Care Provider] - Celso Dsouza DO [Staff Physician] - - Patient Discharge Instructions Patient Printed Discharge Instructions: DI for Gastritis Additional Instructions: Your ultrasound is normal. your symptoms is likely from gastritis . Take prescribed medications as prescribed. Follow-up with GI doctor
[2019-12-16] MEDS ORDERED: ACETAMINOPHEN INJECTION 100 ML IVPB ONE (14:55)
[2019-12-16] MEDS ORDERED: ACETAMINOPHEN 1000 MG/100 ML VIAL (NON FORMULARY) IVPB ONE (14:57)
[2019-12-16 15:14] VITALS: BP 153/83; PULSE 72; TEMP 97.8
== END 2019-12-16 15:33 | disposition home or self-care (01) ==
LOC: JER 11:37
PROC: 3E033GC Introduction of Other Therapeutic Substance into Peripheral Vein, Percutaneous Approach (ICD-10-PCS; principal; 2019-12-16)
DX: R10.13 Epigastric pain (principal)
CPT/HCPCS: 76705-TC; 99283-25; J7030

== ENCOUNTER 2019-12-17 01:44 | Inpatient (IN) | payer OTHER ==
[2019-12-17 02:09] VITALS: BMI 33.3
--- NOTE | 2019-12-17 02:20 | PDOC ---
Attending Attestation - Resident Resident Name: Enmanuel Franklin - ED Attending Attestation I have performed the following: I have examined & evaluated the patient, The case was reviewed & discussed with the resident, I agree w/resident's findings & plan - HPI HPI: 12/17/19 03:00 Pt comes with diffuse abd pain x 24 hrs. She has been her 2x and now this is the 3rd time. First WBC was 17; 2nd time, no labs, just maalox and pt discharged. Now pain SHe took pepto bismol and she has black stools - Physicial Exam PE: 12/17/19 03:01 Abd obese and distended and gassy afebrile Pt is crying and pacing around her room Pt has no flank pain. - Medical Decision Making 12/17/19 04:00 WBC went from 17 to 12; no lactic acid elevation; chem is normal; BUN/CR normal ; LDH elevated. Pt will be sent for CT scan with IV contrast. 12/17/19 05:55 Patient Name: EDUARDO REGALADO THIS IS A PRELIMINARY REPORT FROM [facility] [employer]EL[employer] DATE OF SERVICE: 2019-12-17 04:08:53 IMAGES: [id number] EXAM: ABDOMEN \T\ PELVIS CT WITH CONTR HISTORY: Abdominal pain COMPARISON: None. FINDINGS: Lung bases are clear. The visualized cardiac chambers are normal size and configuration. There is nodularity of both adrenal glands. Normal liver, gallbladder, pancreas, spleen, and kidneys. The stomach and abdominal small and large bowel are normal. There is no aortic aneurysm. There is no significant retroperitoneal lymphadenopathy. The pelvic small and large bowel are normal. The appendix is normal. The uterus and adnexal structures are normal. Urinary bladder is unremarkable. There is no pelvic free fluid. No discrete pelvic lymphadenopathy is identified. IMPRESSION: Bilateral digital nodularity can be further evaluated with a nonemergent MRI. No definite evidence of acute pathology.
--- NOTE | 2019-12-17 02:20 | PDOC ---
History of Present Illness - General Chief Complaint: Pain, Acute Stated Complaint: PAIN Time Seen by Provider: 12/17/19 02:19 History Source: Patient Exam Limitations: No Limitations - History of Present Illness Initial Comments: 12/17/19 02:23 Char Bermudez is a 59 yo f w a hx of CAD s/p stent, HTN, and gastritis presenting w severe intermittent epigastric abdominal pain. Was seen twice yesterday for epigastric pain attributed to gastritis and relieved w pepcid, maalox, tylenol. Symptoms recurred at 6pm yesterday, not relieved w pepcid, baby aspirin, zofran. Still passing gas. Denies ABD distension, fever, chest pain, SOB, urinary, bowel mvmt changes. Past History - Past Medical History Allergies/Adverse Reactions: Allergies Allergy/AdvReac Type Severity Reaction Status Date / Time No Known Allergies Allergy Verified 12/17/19 02:08 Home Medications: Ambulatory Orders Ascorbic Acid [Vitamin C] 500 mg PO DAILY 06/07/18 Aspirin [ASA -] 81 mg PO HS 06/07/18 Atenolol [Tenormin -] 50 mg PO DAILY 06/07/18 Calcium Citrate/Vitamin D2 [Uriel-Citrate Plus Vitamin D Tab] 1 each PO DAILY Carbamazepine [Tegretol -] 200 mg PO BID 06/07/18 [place]-3/Dha/Epa/Fish Oil [Fish Oil 500 mg Softgel] 1 each PO DAILY 06/07/18 Simvastatin 20 mg PO HS 06/07/18 Mometasone/Formoterol [Dulera 200 Mcg/5 Mcg Inhaler] 2 inh IH BID 10/13/19 Oxycodone HCl/Acetaminophen [Percocet 5-325 mg Tablet] 1 tab PO Q6H #20 tablet MDD 4 10/14/19 Famotidine [Pepcid -] 40 mg PO DAILY #7 tablet 12/16/19 Ondansetron [Zofran *Odt*] 4 mg SL Q8H PRN #12 od.tablet 12/16/19 Anemia: No Asthma: No Cancer: No Cardiac Disorders: Yes (CAD with stent 1999) CVA: No COPD: No CHF: No Dementia: No Diabetes: No GI Disorders: No Disorders: No HTN: Yes Hypercholesterolemia: Yes Liver Disease: No Seizures: Yes (epilepsy last one 1999) Thyroid Disease: No - Surgical History Cardiac Surgery: Yes (STENT) Orthopedic Surgery: Yes (left knee torn musle repair) - Immunization History Immunization Up to Date: No - Psycho Social/Smoking Cessation Hx Smoking History: Never smoked Have you smoked in the past 12 months: No Information on smoking cessation initiated: No Hx Alcohol Use: No Drug/Substance Use Hx: No Substance Use Type: Alcohol, Marijuana Hx Substance Use Treatment: No Review of Systems - Review of Systems Constitutional: No: Chills, Fever HEENTM: No: Eye Pain, Nose Pain Respiratory: No: Cough, Shortness of Breath Cardiac (ROS): No: Chest Pain, Palpitations ABD/GI: No: Abdominal Distended, Constipated, Diarrhea, Nausea, Vomiting : No: Burning, Dysuria Musculoskeletal: No: Back Pain, Joint Pain Integumentary: No: Bruising, Flushing Neurological: No: Headache, Seizure Psychiatric: No: Anxiety, Depression Endocrine: No: Intolerance to Cold, Intolerance to Heat Hematologic/Lymphatic: No: Anemia, Blood Clots *Physical Exam - Vital Signs Last Vital Signs Temp Pulse Resp BP Pulse Ox 98.0 F 74 20 149/82 98 12/17/19 02:08 12/17/19 02:08 12/17/19 02:08 12/17/19 02:08 12/17/19 02:08 - Physical Exam General Appearance: Yes: Nourished, Appropriately Dressed, Moderate Distress HEENT: positive: EOMI, MIRNA, Normal Voice, Hearing Grossly Normal. negative: Scleral Icterus (R), Scleral Icterus (L) Respiratory/Chest: positive: Lungs Clear, Normal Breath Sounds. negative: Chest Tender, Respiratory Distress Cardiovascular: positive: Regular Rhythm, Regular Rate, S1, S2. negative: Edema , Murmur Gastrointestinal/Abdominal: positive: Normal Bowel Sounds, Tender (mild epigastric, negative price sign), Flat, Soft. negative: Organomegaly Musculoskeletal: negative: CVA Tenderness (R), CVA Tenderness (L) Extremity: positive: Normal Capillary Refill Integumentary: positive: Normal Color. negative: Dry Neurologic: positive: vacuum cleaner assembler II-XII NML intact, Fully Oriented, Alert, Normal Response, Respond to painful stimul. negative: Normal Mood/Affect (tearful, complaining of pain), Sensory Deficit, Confused, Disoriented ED Treatment Course - LABORATORY CBC & Chemistry Diagram: 12/17/19 02:25 12/17/19 02:40 Medical Decision Making - Medical Decision Making 12/17/19 02:49 EKG NSR, TWI V1-4, HR 66, QTc 400, unchanged vs last year CT A/P - nodularity of both adrenal glands, normal liver, gallbladder, pancreas , spleen, bowels WBC 12 --- Char Bermudez is a 59 yo f w a hx of CAD s/p stent, HTN, and gastritis presenting w 2d severe intermittent epigastric abdominal pain. No acute pathology seen on CT A/P other than nikolas adrenal gland nodularity. Low concern for ACS (neg trop, vs pancreatitis (normal lipase) vs cholecystitis (normal bili, neg price sign) Given tylenol, 2 morphine, protonix, zosyn. Pain still 08/18 Admitted m/s Dr Garcia for intractable epigastric pain PCP Nick Garcia Discharge - Discharge Information Problems reviewed: Yes Clinical Impression/Diagnosis: Intractable epigastric abdominal pain Condition: Stable - Follow up/Referral Referrals: Nick Garcia MD [Primary Care Provider] - - Patient Discharge Instructions - Post Discharge Activity
[2019-12-17] MEDS ORDERED: morphine CARPU-JECT 4 MG/1 ML DISP.SYRIN IVPUSH ONE (02:27)
[2019-12-17] MEDS ORDERED: MORPHINE SULFATE 2 MG/ML VIAL ONE ×2 (02:29→19:27)
[2019-12-17] MEDS ORDERED: SODIUM CHLORIDE 0.9% 500 ML INFUS.BAG IV ONE (02:35)
[2019-12-17] MEDS ORDERED: PANTOPRAZOLE SODIUM 40 MG VIAL IVPUSH ONE (02:35)
[2019-12-17] MEDS ORDERED: ACETAMINOPHEN 1000 MG/100 ML VIAL (NON FORMULARY) IVPB ONE (02:37)
[2019-12-17] MEDS ORDERED: PIPERACILLIN/TAZOB 3.375 GM 3.375 GM in DEXTROSE 5%-WATER - 50 ML IVPB ONE (02:37)
[2019-12-17] MEDS ORDERED: PANTOPRAZOLE SODIUM 40 MG VIAL ONE ×2 (02:52→09:28)
[2019-12-17] MEDS ORDERED: PIPERACILLIN/TAZOB 3.375 GM 3.375 GM/50 ML BAG IVPB ONE (02:52)
[2019-12-17] MEDS ORDERED: ACETAMINOPHEN INJECTION 100 ML IVPB ONE ×2 (02:52→09:28)
[2019-12-17 03:03] LABS: BASO % 0.9 % (0-2.0); EOS % 1.1 % (0-4.5); HEMATOCRIT 41.4 % (32.4-45.2); HEMOGLOBIN 14.1 GM/dL (10.7-15.3); LYMPH % 17.2 % (8-40); MCH 34.1 pg (25.7-33.7); MCHC 34.1 g/dl (32.0-36.0); MEAN CELL VOLUME 99.8 fl (80-96); MEAN PLT VOLUME 9.4 fl (7.5-11.1); MONO % 4.5 % (3.8-10.2); NEUT % 76.3 % (42.8-82.8); PLATELET COUNT 241 K/MM3 (134-434); RBC 4.15 M/mm3 (3.60-5.2); RDW 13.3 % (11.6-15.6); WHITE BLOOD COUNT 12.3 K/mm3 (4.0-10.0)
[2019-12-17 03:16] LABS: INR 0.92 (0.83-1.09); PROTHROMBIN TIME (PATIENT) 10.8 SEC (9.7-13.0)
[2019-12-17 03:38] LABS: ALBUMIN 3.8 g/dl (3.4-5.0); BILIRUBIN,TOTAL 0.2 mg/dL (0.2-1); BLOOD UREA NITROGEN 6.1 mg/dL (7-18); CALCIUM 9.2 mg/dL (8.5-10.1); CREATININE 0.8 mg/dL (0.55-1.3); POTASSIUM 3.8 mmol/L (3.5-5.1); TOT PROT 7.3 g/dl (6.4-8.2)
[2019-12-17 03:39] LABS: LDH 293 U/L (84-246); LIPASE 198 U/L (73-393)
[2019-12-17] MEDS ORDERED: METOPROLOL TARTRATE 5 MG/5 ML VIAL IVPB PRN (09:08)
[2019-12-17] MEDS ORDERED: LACTATED RINGERS SOLUTION 1,000 ML/1,000 ML INFUS.BAG IV SCH (09:15)
[2019-12-17] MEDS ORDERED: HYDROmorphone HCl 2 MG/ML VIAL ONE (09:27)
[2019-12-17] MEDS ORDERED: carBAMazepine 200 MG TABLET ONE ×2 (09:27→22:24)
[2019-12-17] MEDS ORDERED: ONDANSETRON 4 MG/2 ML VIAL ONE ×2 (09:28→23:33)
[2019-12-17] MEDS: PANTOPRAZOLE SODIUM 40 MG VIAL IVPUSH SCH ×2 (09:44→22:28)
[2019-12-17] MEDS: carBAMazepine 200 MG TABLET PO SCH ×2 (09:44→22:28)
[2019-12-17] MEDS: HYDROmorphone HCl 2 MG/ML VIAL IVPUSH PRN (09:44)
[2019-12-17] MEDS: ACETAMINOPHEN 1000 MG/100 ML VIAL (NON FORMULARY) IVPB PRN (09:45)
[2019-12-17] MEDS: ONDANSETRON 4 MG/2 ML VIAL IVPUSH PRN ×2 (09:46→23:37)
[2019-12-17] MEDS: MORPHINE SULFATE 2 MG/ML VIAL IVPUSH PRN (19:30)
--- NOTE | 2019-12-17 20:09 | HP ---
Admitting History and Physical - Primary Care Physician PCP: Nick Garcia - Admission Chief Complaint: Abdominal pain History of Present Illness: Char Bermudez is a 59 yo f w a hx of CAD s/p stent, HTN, and gastritis presenting w severe intermittent epigastric abdominal pain. Was seen twice yesterday for epigastric pain attributed to gastritis and relieved w pepcid, maalox, tylenol. Symptoms recurred at 6pm yesterday, not relieved w pepcid, baby aspirin, zofran. /C/o tarry stools. C/o similar pains last year, was admitted with gastroeneteritis in 02/2019. Last colonoscopy done by dr forrester in 05/2018 was normal. As of now pain is 0/10, but when palpated increased to 8/10. Reports of having diarrhea x 1 today in the ER. 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 Cardiovascular: Yes: CAD, HTN - Past Surgical History Past Surgical History: Yes: Stent - Smoking History Smoking history: Never smoked Have you smoked in the past 12 months: No - Alcohol/Substance Use Hx Alcohol Use: No History of Substance Use: reports: None - Social History ADL: Independent History of Recent Travel: No Home Medications - Allergies Allergies/Adverse Reactions: Allergies Allergy/AdvReac Type Severity Reaction Status Date / Time No Known Allergies Allergy Verified 12/17/19 02:08 - Home Medications Home Medications: Ambulatory Orders Ascorbic Acid [Vitamin C] 500 mg PO DAILY 06/07/18 Aspirin [ASA -] 81 mg PO HS 06/07/18 Atenolol [Tenormin -] 50 mg PO DAILY 06/07/18 Calcium Citrate/Vitamin D2 [Uriel-Citrate Plus Vitamin D Tab] 1 each PO DAILY Carbamazepine [Tegretol -] 200 mg PO BID 06/07/18 [place]-3/Dha/Epa/Fish Oil [Fish Oil 500 mg Softgel] 1 each PO DAILY 06/07/18 Simvastatin 20 mg PO HS 06/07/18 Mometasone/Formoterol [Dulera 200 Mcg/5 Mcg Inhaler] 2 inh IH BID 10/13/19 Review of Systems - Review of Systems Constitutional: reports: No Symptoms Eyes: reports: No Symptoms HENT: reports: No Symptoms Neck: reports: No Symptoms Cardiovascular: reports: No Symptoms Respiratory: reports: No Symptoms Gastrointestinal: reports: Abdominal Pain Genitourinary: reports: No Symptoms Breasts: reports: No Symptoms Reported Musculoskeletal: reports: No Symptoms Integumentary: reports: No Symptoms Neurological: reports: No Symptoms Endocrine: reports: No Symptoms Hematology/Lymphatic: reports: No Symptoms Psychiatric: reports: No Symptoms Physical Examination Vital Signs: Vital Signs Temperature 97.8 F 12/17/19 14:00 Pulse Rate 74 12/17/19 19:25 Respiratory Rate 18 12/17/19 19:25 Blood Pressure 154/82 12/17/19 19:25 O2 Sat by Pulse Oximetry (%) 100 12/17/19 19:25 Constitutional: Yes: Well Nourished, No Distress, Calm, Obese Cardiovascular: Yes: Regular Rate and Rhythm Respiratory: Yes: Regular Gastrointestinal: Yes: Normal Bowel Sounds, Soft, Abdomen, Obese, Tenderness ( umbilical), Tenderness, Epigastrium Renal/: Yes: WNL Musculoskeletal: Yes: WNL Extremities: Yes: WNL Edema: No Peripheral Pulses WNL: Yes Neurological: Yes: Alert, Oriented Psychiatric: Yes: Alert, Oriented Labs: CBC, BMP 12/17/19 02:25 12/17/19 02:40 Problem List - Problems (1) Intractable epigastric abdominal pain Assessment/Plan: -GI consult -IVF -Clear liquids for now -PPI -CT abd/pel unremarkable -Leukocytosis likely reactive -acetaminophen+Morphine for pain -Check stool for OB Problems reviewed: Yes Code(s): R10.13 - EPIGASTRIC PAIN (2) Abdominal pain Problems reviewed: Yes Code(s): R10.9 - UNSPECIFIED ABDOMINAL PAIN Qualifiers: Abdominal location: left upper quadrant Qualified Code(s): R10.12 - Left upper quadrant pain (3) HTN (hypertension) Assessment/Plan: -Metorprolol 4 mg IVP Q4h PRN for SBP>160 mm Hg Problems reviewed: Yes Code(s): I10 - ESSENTIAL (PRIMARY) HYPERTENSION Assessment/Plan see problem list
[2019-12-17] MEDS ORDERED: PANTOPRAZOLE SODIUM 40 MG/100 ML BAG IVPB ONE (22:24)
[2019-12-18] MEDS ORDERED: ACETAMINOPHEN INJECTION 100 ML IVPB ONE ×2 (01:32→13:17)
[2019-12-18] MEDS ORDERED: MORPHINE SULFATE 2 MG/ML VIAL ONE ×2 (01:32→13:17)
[2019-12-18] MEDS: MORPHINE SULFATE 2 MG/ML VIAL IVPUSH PRN (01:36)
[2019-12-18] MEDS: ACETAMINOPHEN 1000 MG/100 ML VIAL (NON FORMULARY) IVPB PRN (01:37)
[2019-12-18 06:23] LABS: EOS % 1.6 % (0-4.5); HEMATOCRIT 39.1 % (32.4-45.2); HEMOGLOBIN 13.3 GM/dL (10.7-15.3); LYMPH % 24.2 % (8-40); MCH 33.9 pg (25.7-33.7); MCHC 34.1 g/dl (32.0-36.0); MEAN CELL VOLUME 99.5 fl (80-96); MEAN PLT VOLUME 8.4 fl (7.5-11.1); MONO % 5.2 % (3.8-10.2); PLATELET COUNT 215 K/MM3 (134-434); RBC 3.93 M/mm3 (3.60-5.2); RDW 13.1 % (11.6-15.6); WHITE BLOOD COUNT 10.5 K/mm3 (4.0-10.0)
--- NOTE | 2019-12-18 07:38 | CON.GI ---
Consult Consult Specialty:: GI Reason for Consultation:: abdominal pain - History of Present Illness History of Present Illness: Patient was seen in the ER 59 y/o Female with PMH of CAD s/p stent insertion was doing well until 2 days prior to admission when she developed persitent epigastric pain. She ate hot dogs 10pm 12/15/2019, She was awakened by the epigastric pain associated with nausea and loose stool at 12 ma. She went to the ED 12/16 at 5am. She was noted to have an elevated WBC [id number], normal abdominal utrasound. She received IV Pepcid and mylanta. She went back to ER at 12 pm 12/16 with similar complaints. There were no EKG changes, She took Peptobismol and she noted that she had black stools.She was given Maalox and was discharged with Pepcid. 12/17/2019 3am went to the ED with similar complaints. WBC went down to 12,000. CT was done which revealed few diverticula, nodularity in adrenal gland, no evidence of acute pathology including mesenteric ischemia. She has history of chronic Aspirin use Despite pain meds and PPI,she continue to have abdominal pain. This concerning as CT was negative for any ischemia. 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 Cardio/Vascular: Yes: CAD, HTN - Past Surgical History Past Surgical History: Yes: Stent - Alcohol/Substance Use Hx Alcohol Use: No History of Substance Use: reports: None - Smoking History Smoking history: Never smoked Have you smoked in the past 12 months: No - Social History ADL: Independent History of Recent Travel: No Home Medications - Allergies Allergies/Adverse Reactions: Allergies Allergy/AdvReac Type Severity Reaction Status Date / Time No Known Allergies Allergy Verified 12/17/19 02:08 - Home Medications Home Medications: Ambulatory Orders Ascorbic Acid [Vitamin C] 500 mg PO DAILY 06/07/18 Aspirin [ASA -] 81 mg PO HS 06/07/18 Atenolol [Tenormin -] 50 mg PO DAILY 06/07/18 Calcium Citrate/Vitamin D2 [Uriel-Citrate Plus Vitamin D Tab] 1 each PO DAILY Carbamazepine [Tegretol -] 200 mg PO BID 06/07/18 [place]-3/Dha/Epa/Fish Oil [Fish Oil 500 mg Softgel] 1 each PO DAILY 06/07/18 Simvastatin 20 mg PO HS 06/07/18 Mometasone/Formoterol [Dulera 200 Mcg/5 Mcg Inhaler] 2 inh IH BID 10/13/19 Physical Exam-GI Vital Signs: Vital Signs Temperature 98.8 F 12/18/19 00:05 Pulse Rate 68 12/18/19 04:59 Respiratory Rate 18 12/18/19 04:59 Blood Pressure 162/75 12/18/19 04:59 O2 Sat by Pulse Oximetry (%) 99 12/18/19 04:58 Constitutional: Yes: Obese Eyes: Yes: Conjunctiva Clear HENT: Yes: Atraumatic Neck: Yes: Trachea Midline Cardiovascular: Yes: Regular Rate and Rhythm Respiratory: Yes: CTA Bilaterally ...Palpate: Yes: Soft, Tenderness, Epigastium (--sevre). No: Firm/Rigid, Guarding, Hepatomegaly, Mass, Pulsatile Mass, Splenomegaly, Tenderness Labs: CBC, BMP 12/18/19 05:40 12/17/19 02:40 INR, PTT INR 0.92 (0.83-1.09) 12/17/19 02:25 Active Medications Generic Name Dose Route Start Last Admin Trade Name Freq PRN Reason Stop Dose Admin Acetaminophen 1,000 mg 12/17/19 09:06 12/18/19 01:37 Ofirmev Injection - IVPB 1,000 mg Q6H PRN Administration PAIN Carbamazepine 200 mg 12/17/19 10:00 12/17/19 22:28 Tegretol - PO 200 mg BID MARILYN Administration Hydromorphone HCl 2 mg 12/17/19 09:06 12/17/19 09:44 Dilaudid Vial - IVPUSH 2 mg Q8H PRN Administration PAIN LEVEL 7 - 10 Lactated Ringer's 1,000 ml in 1,000 mls @ 150 mls/hr 12/18/19 08:00 Lactated Ringers Solution IV 12/19/19 15:54 ASDIR [facility] Metoclopramide HCl 10 mg 12/18/19 08:00 Reglan Injection - IVPB Q8H MARILYN Metoprolol Tartrate 5 mg 12/17/19 09:08 Lopressor Injection - IVPB Q4H PRN HYPERTENSION Morphine Sulfate 2 mg 12/17/19 09:06 12/18/19 01:36 Morphine Sulfate IVPUSH 2 mg Q6H PRN Administration PAIN LEVEL 4 - 6 Ondansetron HCl 4 mg 12/17/19 09:17 12/17/19 23:37 Zofran Injection IVPUSH 4 mg Q6H PRN Administration NAUSEA AND/OR VOMITING Pantoprazole Sodium 40 mg 12/17/19 10:00 12/17/19 22:28 Protonix Iv IVPUSH 40 mg BID MARILYN Administration Simethicone 80 mg 12/18/19 10:00 Mylicon Liquid - PO QID MARILYN Imaging - Results Cat Scan: Report Reviewed Ultrasound: Report Reviewed Problem List - Problems (1) Epigastric pain Assessment/Plan: r/o Peptic ulcer disease R> IV hydration IV Pantoprazole, Reglan and Zofran esr, CRP lactic acid if not done yet Code(s): R10.13 - EPIGASTRIC PAIN (2) Abdominal pain Assessment/Plan: r/o mesenteric ischemia, R> serial abdominal examination Code(s): R10.9 - UNSPECIFIED ABDOMINAL PAIN Qualifiers: Abdominal location: left upper quadrant Qualified Code(s): R10.12 - Left upper quadrant pain
[2019-12-18] MEDS ORDERED: LACTATED RINGERS SOLUTION 1,000 ML/1,000 ML INFUS.BAG IV SCH ×2 (08:00→17:43)
[2019-12-18] MEDS ORDERED: METOCLOPRAMIDE HCL INJECTION 10 MG/2 ML VIAL ONE (08:40)
[2019-12-18] MEDS: METOCLOPRAMIDE HCL INJECTION 10 MG/2 ML VIAL IVPB SCH ×3 (08:42→23:42)
--- NOTE | 2019-12-18 09:04 | PN ---
Progress Note, Physician Chief Complaint: Epigastric pain History of Present Illness: NAD continues to have abd pain CTAP unremarkable Seen by GI on PPI bid - Current Medication List Current Medications: Active Medications Acetaminophen (Ofirmev Injection -) 1,000 mg IVPB Q6H PRN PRN Reason: PAIN Last Admin: 12/18/19 01:37 Dose: 1,000 mg Atenolol (Tenormin -) 50 mg PO DAILY [facility] Carbamazepine (Tegretol -) 200 mg PO BID [facility] Last Admin: 12/17/19 22:28 Dose: 200 mg Hydromorphone HCl (Dilaudid Vial -) 2 mg IVPUSH Q8H PRN PRN Reason: PAIN LEVEL 7 - 10 Last Admin: 12/17/19 09:44 Dose: 2 mg Lactated Ringer's (Lactated Ringers Solution) 1,000 ml in 1,000 mls @ 150 mls/ hr IV ASDIR [facility] Stop: 12/19/19 15:54 Last Admin: 12/18/19 08:39 Dose: 150 mls/hr Metoclopramide HCl (Reglan Injection -) 10 mg IVPB Q8H [facility] Last Admin: 12/18/19 08:42 Dose: 10 mg Morphine Sulfate (Morphine Sulfate) 2 mg IVPUSH Q6H PRN PRN Reason: PAIN LEVEL 4 - 6 Last Admin: 12/18/19 01:36 Dose: 2 mg Ondansetron HCl (Zofran Injection) 4 mg IVPUSH Q6H PRN PRN Reason: NAUSEA AND/OR VOMITING Last Admin: 12/17/19 23:37 Dose: 4 mg Pantoprazole Sodium (Protonix Iv) 40 mg IVPUSH BID [facility] Last Admin: 12/17/19 22:28 Dose: 40 mg Simethicone (Mylicon Liquid -) 80 mg PO QID [facility] - Objective Vital Signs: Vital Signs Temperature 98.8 F 12/18/19 00:05 Pulse Rate 68 12/18/19 04:59 Respiratory Rate 18 12/18/19 04:59 Blood Pressure 162/75 12/18/19 04:59 O2 Sat by Pulse Oximetry (%) 99 12/18/19 04:58 Constitutional: Yes: Well Nourished, No Distress, Calm, Obese Cardiovascular: Yes: Regular Rate and Rhythm Respiratory: Yes: Regular Gastrointestinal: Yes: Normal Bowel Sounds, Soft, Abdomen, Obese, Tenderness, Epigastrium Genitourinary: Yes: WNL Musculoskeletal: Yes: WNL Extremities: Yes: WNL Edema: No Peripheral Pulses WNL: Yes Neurological: Yes: Alert, Oriented Psychiatric: Yes: Alert, Oriented Labs: CBC, BMP 12/18/19 05:40 12/17/19 02:40 INR, PTT INR 0.92 (0.83-1.09) 12/17/19 02:25 Problem List - Problems (1) Intractable epigastric abdominal pain Assessment/Plan: -GI consult -IVF -Clear liquid diet -PPI BID -Simethicone added by GI for abd bloating -CT abd/pel unremarkable -Leukocytosis likely reactive-trending down -acetaminophen+Morphine+ dilaudid for pain -Check stool for OB Problems reviewed: Yes Code(s): R10.13 - EPIGASTRIC PAIN (2) Abdominal pain Problems reviewed: Yes Code(s): R10.9 - UNSPECIFIED ABDOMINAL PAIN Qualifiers: Abdominal location: left upper quadrant Qualified Code(s): R10.12 - Left upper quadrant pain (3) HTN (hypertension) Assessment/Plan: -restart atenolol po Problems reviewed: Yes Code(s): I10 - ESSENTIAL (PRIMARY) HYPERTENSION Assessment/Plan see problem list
[2019-12-18] MEDS ORDERED: ATENOLOL 25 MG TABLET (FP) ONE (09:29)
[2019-12-18] MEDS ORDERED: HYDROmorphone HCl 2 MG/ML VIAL ONE (09:34)
[2019-12-18] MEDS: PANTOPRAZOLE SODIUM 40 MG VIAL IVPUSH SCH ×2 (09:42→21:31)
[2019-12-18] MEDS: HYDROmorphone HCl 2 MG/ML VIAL IVPUSH PRN (09:42)
[2019-12-18] MEDS: carBAMazepine 200 MG TABLET PO SCH ×2 (09:42→22:43)
[2019-12-18] MEDS: ATENOLOL 50 MG TABLET (FP) PO SCH (09:43)
[2019-12-18] MEDS: SIMETHICONE 40 MG/0.6 ML BOTTLE PO SCH ×4 (10:30→22:43)
[2019-12-18 10:41] LABS: ALBUMIN 3.9 g/dl (3.4-5.0); BILIRUBIN,TOTAL 0.3 mg/dL (0.2-1); BLOOD UREA NITROGEN 5.1 mg/dL (7-18); CALCIUM 9.2 mg/dL (8.5-10.1); CREATININE 0.8 mg/dL (0.55-1.3); POTASSIUM 3.7 mmol/L (3.5-5.1)
[2019-12-18] MEDS ORDERED: ONDANSETRON 4 MG/2 ML VIAL IVPB STA (12:28)
[2019-12-18] MEDS ORDERED: ONDANSETRON 4 MG/2 ML VIAL ONE (13:17)
--- NOTE | 2019-12-18 14:17 | EKG ---
Test Reason : Blood Pressure : / mmHG Vent. Rate : 066 BPM Atrial Rate : 066 BPM P-R Int : 180 ms QRS Dur : 086 ms QT Int : 382 ms P-R-T Axes : 054 051 067 degrees QTc Int : 400 ms NORMAL SINUS RHYTHM T WAVE ABNORMALITY, CONSIDER ANTERIOR ISCHEMIA ABNORMAL ECG Confirmed by MD SHARAD, WES ([id number]) on 12/18/2019 2:16:40 PM Referred By: Confirmed By:WES OROURKE MD
[2019-12-19] MEDS: METOCLOPRAMIDE HCL INJECTION 10 MG/2 ML VIAL IVPB SCH ×2 (08:28→17:27)
--- NOTE | 2019-12-19 08:38 | PN.GI ---
GI Progress Note Subjective: Patient continues with burning epigastric pain but she states it has improved. Continue with nausea and non-bloody vomitus last night. Denies diarrhea, constipation, rectal bleeding, melena. WBC showing downtrend currently 10,500. - Objective Vital Signs: Vital Signs Temperature 98.9 F 12/19/19 04:00 Pulse Rate 75 12/19/19 04:00 Respiratory Rate 18 12/19/19 04:00 Blood Pressure 176/93 H 12/19/19 04:00 O2 Sat by Pulse Oximetry (%) 99 12/18/19 21:00 Constitutional: No Distress, Calm Eyes: Yes: Conjunctiva Clear HENT: Yes: Atraumatic Cardiovascular: Yes: Regular Rate and Rhythm Respiratory: Yes: Regular, CTA Bilaterally Gastrointestinal Inspection: Yes: WNL. No: Ascites, Distention, Hernia, Scars, Other ...Auscultate: Yes: Normoactive Bowel Sounds. No: Hyperactive Bowel Sounds, Hypoactive Bowel Sounds, No Bowel Sounds, Other ...Palpate: Yes: Soft, Tenderness, Epigastium. No: Firm/Rigid, Guarding, Hepatomegaly, Mass, Pulsatile Mass, Splenomegaly, Tenderness, Tenderness, Rebound, Other ...Percussion: Yes: Tympanitic. No: Dullness, Fluid Wave, Other Neurological: Yes: Alert, Oriented Psychiatric: Yes: Alert, Oriented Labs: CBC, BMP 12/18/19 05:40 12/18/19 09:55 INR, PTT INR 0.92 (0.83-1.09) 12/17/19 02:25 Active Medications Generic Name Dose Route Start Last Admin Trade Name Freq PRN Reason Stop Dose Admin Acetaminophen 1,000 mg 12/17/19 09:06 12/18/19 01:37 Ofirmev Injection - IVPB 1,000 mg Q6H PRN Administration PAIN Atenolol 50 mg 12/18/19 10:00 12/18/19 09:43 Tenormin - PO 50 mg DAILY MARILYN Administration Carbamazepine 200 mg 12/17/19 10:00 12/18/19 22:43 Tegretol - PO 200 mg BID MARILYN Administration Hydromorphone HCl 2 mg 12/17/19 09:06 12/18/19 09:42 Dilaudid Vial - IVPUSH 2 mg Q8H PRN Administration PAIN LEVEL 7 - 10 Metoclopramide HCl 10 mg 12/18/19 08:00 12/19/19 08:28 Reglan Injection - IVPB 10 mg Q8H MARILYN Administration Morphine Sulfate 2 mg 12/17/19 09:06 12/18/19 01:36 Morphine Sulfate IVPUSH 2 mg Q6H PRN Administration PAIN LEVEL 4 - 6 Pantoprazole Sodium 40 mg 12/17/19 10:00 12/18/19 21:31 Protonix Iv IVPUSH 40 mg BID MARILYN Administration Simethicone 80 mg 12/19/19 10:00 Mylicon - PO QID [facility] Problem List - Problems (1) Epigastric pain Assessment/Plan: r/o Peptic ulcer disease R> IV hydration IV Pantoprazole, Reglan and Zofran esr, CRP lactic acid will have EGD done today Code(s): R10.13 - EPIGASTRIC PAIN (2) Abdominal pain Assessment/Plan: r/o mesenteric ischemia R> serial abdominal examination Code(s): R10.9 - UNSPECIFIED ABDOMINAL PAIN Qualifiers: Abdominal location: left upper quadrant Qualified Code(s): R10.12 - Left upper quadrant pain
[2019-12-19] MEDS ORDERED: PT OWN MED DRAWER 7, Y5N ONE (09:19)
[2019-12-19] MEDS: carBAMazepine 200 MG TABLET PO SCH (09:22)
[2019-12-19] MEDS: PANTOPRAZOLE SODIUM 40 MG VIAL IVPUSH SCH (09:22)
[2019-12-19] MEDS: SIMETHICONE 80 MG TAB.CHEW (FP) PO SCH ×3 (09:22→17:24)
[2019-12-19] MEDS: ATENOLOL 50 MG TABLET (FP) PO SCH (09:22)
[2019-12-19 10:07] LABS: BASO % 0.5 % (0-2.0); EOS % 2.4 % (0-4.5); HEMATOCRIT 38.2 % (32.4-45.2); HEMOGLOBIN 13.2 GM/dL (10.7-15.3); LYMPH % 20.1 % (8-40); MCH 33.9 pg (25.7-33.7); MCHC 34.5 g/dl (32.0-36.0); MEAN CELL VOLUME 98.3 fl (80-96); MEAN PLT VOLUME 8.7 fl (7.5-11.1); MONO % 6.3 % (3.8-10.2); NEUT % 70.7 % (42.8-82.8); PLATELET COUNT 213 K/MM3 (134-434); RBC 3.89 M/mm3 (3.60-5.2); RDW 12.7 % (11.6-15.6); WHITE BLOOD COUNT 10.4 K/mm3 (4.0-10.0)
[2019-12-19] MEDS: ACETAMINOPHEN 1000 MG/100 ML VIAL (NON FORMULARY) IVPB PRN (12:12)
[2019-12-19] MEDS: MORPHINE SULFATE 2 MG/ML VIAL IVPUSH PRN (12:37)
[2019-12-19] MEDS ORDERED: MIDAZOLAM HCL 2 MG/2 ML SINGLE DOSE VIAL ONE (15:24)
[2019-12-19] MEDS ORDERED: ONDANSETRON 4 MG/2 ML VIAL ONE (15:46)
--- NOTE | 2019-12-19 16:41 | DS ---
Physical Examination Vital Signs: Vital Signs Temperature 97.9 F 12/19/19 16:14 Pulse Rate 68 12/19/19 16:14 Respiratory Rate 18 12/19/19 16:14 Blood Pressure 160/80 12/19/19 16:07 O2 Sat by Pulse Oximetry (%) 99 12/19/19 16:14 Findings/Remarks: EGD NO ACUTE CHANGES, GI CLEARED PATIENT TO GO HOME Constitutional: Yes: No Distress HENT: Yes: WNL Neck: Yes: WNL Cardiovascular: Yes: WNL Respiratory: Yes: WNL Gastrointestinal: Yes: Soft Renal/: Yes: WNL Musculoskeletal: Yes: WNL Extremities: Yes: WNL Edema: No Integumentary: Yes: WNL Wound/Incision: Yes: Clean/Dry Neurological: Yes: Pre-Existing Deficit ...Motor Strength: LLE, RLE Psychiatric: Yes: Other Labs: CBC, BMP 12/19/19 08:25 12/18/19 09:55 Discharge Summary Problems reviewed: Yes Reason For Visit: INTRACTABLE ABDOMINAL PAIN Current Active Problems HTN (hypertension) (Acute) Intractable epigastric abdominal pain (Acute) Procedures: Principal: EGD/CT ABD Hospital Course: ADMITTED FOR SEVERE ABD PAIN, CT SCAN AND EGD COMPLETED NO ACUTE CHANGES SEEN ON EGD. CLEAR DIET TOLERATED, FOLLOW OUTPATIENT Plan of Treatment: CLEAR DIET ADVANCE TOLERATED Condition: Stable - Instructions Diet, Activity, Other Instructions: SEE DR QUACH IN NEXT 3-4 DAYS IF POSSIBLE, CALL DR GARCIA IF PAIN RETURNS OR RETURN TO ED CLEAR LIQUIDS FOR NEXT 48 HOURS THEN ADVANCE TO LACTOSE FREE/ NO FRIED FOOD Referrals: Nick Garcia MD [Primary Care Provider] - Disposition: HOME - Home Medications Comprehensive Discharge Medication List: Ambulatory Orders Ascorbic Acid [Vitamin C] 500 mg PO DAILY 06/07/18 Aspirin [ASA -] 81 mg PO HS 06/07/18 Atenolol [Tenormin -] 50 mg PO DAILY 06/07/18 Calcium Citrate/Vitamin D2 [Uriel-Citrate Plus Vitamin D Tab] 1 each PO DAILY Carbamazepine [Tegretol -] 200 mg PO BID 06/07/18 [place]-3/Dha/Epa/Fish Oil [Fish Oil 500 mg Softgel] 1 each PO DAILY 06/07/18 Simvastatin 20 mg PO HS 06/07/18 Mometasone/Formoterol [Dulera 200 Mcg/5 Mcg Inhaler] 2 inh IH BID 10/13/19 Carbamazepine [Tegretol -] 200 mg PO BID tablet 12/19/19 Ondansetron [Zofran *Odt*] 4 mg SL TID #21 od.tablet 12/19/19 Simethicone [Mylicon -] 80 mg PO QID #30 tab.chew 12/19/19
[2019-12-19 18:33] VITALS: BP 147/87; PULSE 67; TEMP 98.3
--- NOTE | 2019-12-22 13:20 | PATH ---
Surgical Pathology Report Patient Name: EDUARDO REGALADO [facility]. Rec. #: [id number] /Age/Gender: 1960 (Age: 59) / F Account: [id number] Location: [address] [place] [address]/[facility] Taken: 12/19/2019 Received: 12/20/2019 Reported: 12/22/2019 Physicians: Earnest Puga M.D. Specimen(s) Received A: DUODENUM THIRD PORTION B: GASTRIC BODY C: IRREGULAR GE JUNCTION Clinical History Persistent abdominal pain Postoperative diagnosis: Irregular Z Line and gastritis Final Diagnosis A. DUODENUM, THIRD PORTION, BIOPSY: DUODENAL MUCOSA WITHOUT SIGNIFICANT PATHOLOGIC FINDINGS. B. STOMACH, BODY, BIOPSY: GASTRIC BODY MUCOSA WITH MODERATE CHRONIC FOCAL ACTIVE CHRONIC GASTRITIS. IMMUNOHISTOCHEMICAL STAIN FOR H. PYLORI IS POSITIVE (MANY). C. GE JUNCTION, IRREGULAR, BIOPSY: SQUAMOUS MUCOSA WITH CHANGES OF MILD REFLUX TYPE ESOPHAGITIS. NO COLUMNAR MUCOSA, INTESTINAL METAPLASIA, OR DYSPLASIA IDENTIFIED. Immunohistochemical stain performed at [place], [place] ([id number]) and interpreted at [facility]. Positive and negative controls (internal if applicable) show appropriate results. Electronically Signed Cintia Kauffman M.D. Gross Description A. Received in formalin, labeled "biopsy duodenum" are 2 higgins, irregular portions of soft tissue measuring 0.3 and 0.4 cm. in greatest dimension. The specimens are submitted in toto in one cassette. B. Received in formalin, labeled "gastric body biopsy" are 2 higgins, irregular portions of soft tissue measuring 0.1 and 0.7 cm. in greatest dimension. The specimens are submitted in toto in one cassette. C. Received in formalin, labeled "irregular GE junction biopsy" are 2 higgins, irregular portions of soft tissue measuring 0.2 and 0.3 cm. in greatest dimension. The specimens are submitted in toto in one cassette. DL12/20/2019 saudi12/20/2019
== END 2019-12-19 20:02 | disposition home or self-care (01) | DRG 392 ==
LOC: JER 01:44 → JERBED 18:17 → J5S 12-18 15:24
PROVIDERS: ADMIT Family Medicine; ATTEND Family Medicine
PROC: 0DB68ZX Excision of Stomach, Via Natural or Artificial Opening Endoscopic, Diagnostic (ICD-10-PCS; principal; 2019-12-19 15:00)
DX: K29.70 Gastritis, unspecified, without bleeding (principal); R10.13 Epigastric pain; R10.9 Unspecified abdominal pain; D72.829 Elevated white blood cell count, unspecified; I10 Essential (primary) hypertension; I25.10 Atherosclerotic heart disease of native coronary artery without angina pectoris; E78.00 Pure hypercholesterolemia, unspecified; R19.7 Diarrhea, unspecified; G40.909 Epilepsy, unspecified, not intractable, without status epilepticus; F12.90 Cannabis use, unspecified, uncomplicated; F10.99 Alcohol use, unspecified with unspecified alcohol-induced disorder; Z95.5 Presence of coronary angioplasty implant and graft
CPT/HCPCS: 36415; 74177-TC; 80053; 82550; 82553; 83605; 83615; 83690; 84484; 85025; 85610; 85651; 86140; 93005; 93010; 99285-25; J0131; Q9967

== ENCOUNTER 2019-12-22 03:27 | Emergency (ER) | payer OTHER ==
--- NOTE | 2019-12-22 05:15 | PDOC ---
History of Present Illness - General Chief Complaint: Pain, Acute Stated Complaint: ABDOMINAL PAIN.VOMITING,DIAHRREA Time Seen by Provider: 12/22/19 05:14 Past History - Past Medical History Allergies/Adverse Reactions: Allergies Allergy/AdvReac Type Severity Reaction Status Date / Time No Known Allergies Allergy Verified 12/22/19 05:21 Home Medications: Ambulatory Orders Ascorbic Acid [Vitamin C] 500 mg PO DAILY 06/07/18 Aspirin [ASA -] 81 mg PO HS 06/07/18 Atenolol [Tenormin -] 50 mg PO DAILY 06/07/18 Calcium Citrate/Vitamin D2 [Uriel-Citrate Plus Vitamin D Tab] 1 each PO DAILY Carbamazepine [Tegretol -] 200 mg PO BID 06/07/18 [place]-3/Dha/Epa/Fish Oil [Fish Oil 500 mg Softgel] 1 each PO DAILY 06/07/18 Simvastatin 20 mg PO HS 06/07/18 Mometasone/Formoterol [Dulera 200 Mcg/5 Mcg Inhaler] 2 inh IH BID 10/13/19 Carbamazepine [Tegretol -] 200 mg PO BID tablet 12/19/19 Ondansetron [Zofran *Odt*] 4 mg SL TID #21 od.tablet 12/19/19 Simethicone [Mylicon -] 80 mg PO QID #30 tab.chew 12/19/19 Anemia: No Asthma: No Cancer: No Cardiac Disorders: Yes (CAD with stent 1999) CVA: No COPD: No CHF: No Dementia: No Diabetes: No GI Disorders: No Disorders: No HTN: Yes Hypercholesterolemia: Yes Liver Disease: No Seizures: Yes (epilepsy last one 1999) Thyroid Disease: No - Surgical History Cardiac Surgery: Yes (STENT) Orthopedic Surgery: Yes (both knees) - Immunization History Immunization Up to Date: No - Psycho Social/Smoking Cessation Hx Smoking History: Never smoked Have you smoked in the past 12 months: No Hx Alcohol Use: No Drug/Substance Use Hx: No Substance Use Type: Alcohol, Marijuana Hx Substance Use Treatment: No ED Treatment Course - LABORATORY CBC & Chemistry Diagram: 12/22/19 06:20 12/22/19 06:20 Medical Decision Making - Medical Decision Making 12/22/19 05:52 HPI: 59yo F hx CAD s/p stent, HTN, gastritis, and recent admission for same sx (-12/19/19, dx gastritis per pt, CTAP w/no acute process, RUQ US w/no acute findings, EGD [biopsies of abnormal mucosa sent]) presents from home c/o 6hrs intermittent "exploding" type nonradiating epigastric pain exactly same as prior gastritis improving s/p zofran/peptobismol/mylanta/gas-x, NB diarrhea x3-4 , and NBNB emesis x3-4. Pt states morphine helped when she was admitted and pt felt better since d/c until 2345pm last night (12/21/19). Pt has been drinking/ eating a clear liquid diet (including soup and noodles). Last night pt took regular meds at 2200 including 4mg zofran (TID), peptobismol, mylanta, and baby aspirin. Pt went to sleep and felt ok, but woke up at 2345 with gradual onset worsening epigastric pain with max intensity 13/10. Pt took gas-x at 0030 and has been gradually feeling better since, now 5/10 severity. Denies sick contacts , recent travel, blood in vomit or stool, fever, chills, fatigue, headache, dizziness, numbness/tingling, weakness, vision changes, shortness of breath, cough, chest pain, palpitations, leg swelling,blood in stool, dysuria, hematuria , confusion. PCP - Jose Puga (next appt 12/26/19). ROS: Constitutional: Negative for chills, fever, fatigue, diaphoresis. HENT: Negative for sore throat, rhinorrhea, congestion. Eyes: Negative for visual disturbance. Respiratory: Negative for shortness of breath, cough, and wheezing. Cardiovascular: Negative for chest pain, palpitations, and leg swelling. Gastrointestinal: Positive for epigastric pain, constipation, diarrhea, nausea, and vomiting. Negative for blood in stool. Genitourinary: Negative for dysuria, flank pain, and hematuria. Musculoskeletal: Negative for myalgias, back pain, and neck pain. Skin: Negative for rash. Neurological: Negative for light-headedness, dizziness, vertigo, syncope, weakness, numbness and headaches. Psychiatric/Behavioral: Negative for behavioral problems and confusion. PE: Gen: Alert, NAD, comfortable-appearing. HEENT: PERRL, EOMI, MMM, NCAT. No conjunctival pallor. Sclera are non-icteric. Oropharynx is clear. CV: Regular rate and rhythm. No murmurs, rubs, or gallops. PULM: No resp distress. CTAB, no wheezes, rales, or rhonchi. ABD: soft, ND, +slight epigastric TTP, no rebound tenderness or guarding, no CVA tenderness. BACK: No TTP of c/t/l-spine. No step-offs or deformities. MSK: No bony deformities. 2+ pulses in all extremities. NEURO: AAOx3. PERRL. No gross CN deficits. Strength and sensation grossly intact throughout. EXTREMITIES: No cyanosis. No clubbing. No edema. No calf tenderness. PSYCH: Normal mood and thought pattern. SKIN: Warm and dry. Normal capillary refill. No rashes. No jaundice. MDM: 59yo F hx CAD s/p stent, HTN, gastritis, and recent admission for same sx (-12/19/19, dx gastritis per pt, CTAP w/no acute process, RUQ US w/no acute findings, EGD [biopsies of abnormal mucosa sent]) presents from home with 6hrs intermittent "exploding" type nonradiating epigastric pain same as prior gastritis improving s/p zofran/peptobismol/mylanta/gas-x, NB diarrhea x3-4, and NBNB emesis x3-4. Hemodynamically stable, afebrile, mild epigastric TTP w/o rebound tenderness or guarding. Ddx: gastritis, GERD, PUD, pancreatitis, cholelithiasis/cystitis, diverticulitis , ACS/VA, metabolic derangement, infection, anemia -EKG: reviewed, NSR, 63bpm, normal intervals, normal axis, TWIs in V2/V3/V5, no ST elevations or depressions, no significant changes compared to 12/17/19 -CXR -CBC,CMP,Mg,Phos,Cardiac profile,Coags,Lipase,Lact,UA/UC -IVF, Pepcid, Carafate -Pending w/u, consider abdominal imaging. Not indicated at this time due to recent CTAP and endoscopy and consistency of sx with that time. -Dispo: pending w/u and reassessment, likely d/c home 12/22/19 06:56 Pt signed out to Dr Farmer pending labs and reassessment s/p meds. Discharge - Discharge Information Problems reviewed: Yes Clinical Impression/Diagnosis: Gastritis Qualifiers: Gastritis type: unspecified gastritis Chronicity: unspecified Gastritis bleeding: without bleeding Qualified Code(s): K29.70 - Gastritis, unspecified, without bleeding Condition: Fair Disposition: HOME - Admission No - Follow up/Referral Referrals: Nick Garcia MD [Primary Care Provider] - - Patient Discharge Instructions Additional Instructions: You have been seen in the Emergency Department for your abdominal pain, vomiting , and diarrhea. Your pain improved with hydration and gastritis medications. Take your gastritis medications as prescribed. Stay hydrated by drinking plenty of fluids. Follow-up with your GI doctor, Dr. Puga, on Thursday as scheduled. Return to the Emergency Department immediately for any new or concerning symptoms including blood in stool or vomit, fever, passing out, or inability to keep down water. - Post Discharge Activity
--- NOTE | 2019-12-22 05:20 | PDOC ---
Attending Attestation - Resident Resident Name: Adelaida Cm - ED Attending Attestation I have performed the following: I have examined & evaluated the patient, The case was reviewed & discussed with the resident, I agree w/resident's findings & plan - HPI HPI: 12/22/19 05:53 see resident hpi - Physicial Exam PE: 12/22/19 05:53 see resident exam - Medical Decision Making 12/22/19 05:53 59-year-old female with recent admission for upper abdominal pain with CT scan and recent endoscopy performed consistent with gastritis now with resurgence of pain Due to patient's age, will repeat labs including a lactic acid as well as troponin and EKG We will likely DC home pending results
[2019-12-22] MEDS ORDERED: FAMOTIDINE 20 MG/50 ML IVPB 20 MG/50 ML MG IVPB ONE ×2 (05:51→06:35)
[2019-12-22] MEDS ORDERED: SUCRALFATE 1 GM/10 ML UNIT DOSE CUPS PO ONE (05:51)
[2019-12-22] MEDS ORDERED: SODIUM CHLORIDE 0.9% 500 ML INFUS.BAG IV ONE (05:51)
[2019-12-22 06:01] VITALS: BMI 32.3
[2019-12-22] MEDS ORDERED: SUCRALFATE 1 GM TABLET (FP) ONE (06:02)
[2019-12-22 07:01] LABS: BASO % 0.6 % (0-2.0); EOS % 0.9 % (0-4.5); HEMATOCRIT 37.5 % (32.4-45.2); LYMPH % 11.7 % (8-40); MCH 33.9 pg (25.7-33.7); MCHC 34.6 g/dl (32.0-36.0); MEAN CELL VOLUME 97.9 fl (80-96); MEAN PLT VOLUME 9.4 fl (7.5-11.1); NEUT % 82.8 % (42.8-82.8); PLATELET COUNT 246 K/MM3 (134-434); RBC 3.83 M/mm3 (3.60-5.2); RDW 13.3 % (11.6-15.6); WHITE BLOOD COUNT 11.7 K/mm3 (4.0-10.0)
--- NOTE | 2019-12-22 07:25 | PDOC ---
*Physical Exam - Vital Signs Last Vital Signs Temp Pulse Resp BP Pulse Ox 98.2 F 69 18 148/73 98 12/22/19 03:30 12/22/19 03:30 12/22/19 03:30 12/22/19 03:30 12/22/19 03:30 ED Treatment Course - LABORATORY CBC & Chemistry Diagram: 12/22/19 06:20 12/22/19 06:20 - Medications Given in the ED: ED Medications Discontinued Medications Generic Name Dose Route Start Last Admin Trade Name Arnoldo PRN Reason Stop Dose Admin Famotidine/Sodium Chloride 20 mg in 50 mls @ 100 mls/hr 12/22/19 05:51 06:27 Pepcid 20 Mg Premixed Ivpb - IVPB 12/22/19 06:20 100 mls/hr ONCE ONE Administration Sodium Chloride 1,000 ml 12/22/19 05:51 12/22/19 06:26 Normal Saline - IV 12/22/19 05:52 1,000 ml ONCE ONE Administration Sucralfate 1 gm 12/22/19 05:51 12/22/19 06:26 Carafate Oral Suspension - PO 12/22/19 05:52 1 gm NOW ONE Administration Medical Decision Making - Medical Decision Making 12/22/19 07:19 Sign-out received from Dr. Cm Patient pending labs, recently admitted, took partial GI cocktail at home S/p additional GI medications here No additional imaging ordered given recent CT, Endoscopy and symptoms c/w prior F/u labs, disposition appropriately 12/22/19 07:57 - Coags, Troponin, LFTs, Lipase, Electrolytes wnl - CBC, UA pending 12/22/19 08:17 - 10.4 > 11.7 WBC, no anemia - UA without infection Dispo: Home F/u with Dr. Puga Thursday as discussed F/u with Jose Discharge - Discharge Information Problems reviewed: Yes Clinical Impression/Diagnosis: Gastritis Qualifiers: Gastritis type: unspecified gastritis Chronicity: unspecified Gastritis bleeding: without bleeding Qualified Code(s): K29.70 - Gastritis, unspecified, without bleeding Condition: Fair Disposition: HOME - Admission No - Follow up/Referral Referrals: Nick Garcia MD [Primary Care Provider] - - Patient Discharge Instructions Additional Instructions: You have been seen in the Emergency Department for your abdominal pain, vomiting , and diarrhea. Your pain improved with hydration and gastritis medications. Take your gastritis medications as prescribed. Stay hydrated by drinking plenty of fluids. Follow-up with your GI doctor, Dr. Puga, on Thursday as scheduled. Return to the Emergency Department immediately for any new or concerning symptoms including blood in stool or vomit, fever, passing out, or inability to keep down water. - Post Discharge Activity
[2019-12-22 07:27] LABS: ALBUMIN 3.8 g/dl (3.4-5.0); BILIRUBIN,TOTAL 0.5 mg/dL (0.2-1); BLOOD UREA NITROGEN 7.8 mg/dL (7-18); CALCIUM 9.5 mg/dL (8.5-10.1); CREATININE 0.7 mg/dL (0.55-1.3); LIPASE 28 U/L (73-393); MAGNESIUM 2.5 mg/dL (1.8-2.4); PHOSPHOROUS 3.3 mg/dL (2.5-4.9); POTASSIUM 4.7 mmol/L (3.5-5.1); TOT PROT 7.2 g/dl (6.4-8.2)
[2019-12-22 07:37] LABS: INR 0.91 (0.83-1.09); PROTHROMBIN TIME (PATIENT) 10.7 SEC (9.7-13.0)
[2019-12-22 07:40] LABS: ACTIVATED PTT 25.4 SECONDS (25.2-36.5)
[2019-12-22 08:16] LABS: PH,URINE 6.5 (5.0-8.0); URINE APPEARANCE CLEAR; URINE BILIRUBIN NEGATIVE (NEGATIVE); URINE COLOR YELLOW; URINE GLUCOSE (UA) NEGATIVE (NEGATIVE); URINE KETONE NEGATIVE (NEGATIVE); URINE LEUK ESTERASE NEGATIVE (NEGATIVE); URINE NITRITE NEGATIVE (NEGATIVE); URINE PROTEIN NEGATIVE (NEGATIVE); URINE UROBILINOGEN 0.2 mg/dL (0.2-1.0)
[2019-12-22 08:26] VITALS: BP 148/80; PULSE 66; TEMP 98.5
--- NOTE | 2019-12-22 15:16 | EKG ---
Test Reason : Blood Pressure : / mmHG Vent. Rate : 063 BPM Atrial Rate : 063 BPM P-R Int : 164 ms QRS Dur : 088 ms QT Int : 404 ms P-R-T Axes : 046 054 059 degrees QTc Int : 413 ms NORMAL SINUS RHYTHM NONSPECIFIC T WAVE ABNORMALITY ABNORMAL ECG WHEN COMPARED WITH ECG OF 17-DEC-2019 02:45, NO SIGNIFICANT CHANGE WAS FOUND Confirmed by RAMAN HUTCHINSON MD ([id number]) on 12/22/2019 3:16:08 PM Referred By: Confirmed By:RAMAN HUTCHINSON MD
== END 2019-12-22 08:41 | disposition home or self-care (01) ==
LOC: JER 03:27
PROC: 3E033GC Introduction of Other Therapeutic Substance into Peripheral Vein, Percutaneous Approach (ICD-10-PCS; principal; 2019-12-22)
DX: K29.70 Gastritis, unspecified, without bleeding (principal); I25.10 Atherosclerotic heart disease of native coronary artery without angina pectoris; I10 Essential (primary) hypertension; Z95.5 Presence of coronary angioplasty implant and graft; E78.00 Pure hypercholesterolemia, unspecified; Z86.69 Personal history of other diseases of the nervous system and sense organs
CPT/HCPCS: 36415; 71046-TC-FY; 80053; 81003; 82550; 82553; 83605; 83690; 83735; 84100; 84484; 85025; 85610; 85730; 87086; 93005; 93010; 99285-25

== ENCOUNTER 2021-03-21 12:42 | Emergency (ER) | payer OTHER ==
[2021-03-21 12:56] VITALS: TEMP 98.5; BMI 32.3
[2021-03-21] MEDS ORDERED: ACETAMINOPHEN 1000 MG/100 ML VIAL (NON FORMULARY) IVPB ONE (13:40)
[2021-03-21] MEDS ORDERED: METOCLOPRAMIDE HCL INJECTION 10 MG/2 ML VIAL IVPUSH ONE (13:40)
[2021-03-21] MEDS ORDERED: FAMOTIDINE 20 MG/50 ML IVPB 20 MG/50 ML MG IVPB ONE ×3 (13:40→16:24)
[2021-03-21] MEDS ORDERED: ACETAMINOPHEN INJECTION 100 ML IVPB ONE ×2 (14:15→16:24)
[2021-03-21] MEDS ORDERED: METOCLOPRAMIDE HCL INJECTION 10 MG/2 ML VIAL ONE ×2 (14:15→16:24)
[2021-03-21 14:37] LABS: BASO % 0.7 % (0-2.0); EOS % 1.3 % (0-4.5); HEMATOCRIT 42.1 % (32.4-45.2); HEMOGLOBIN 14.4 GM/dL (10.7-15.3); LYMPH % 19.1 % (8-40); MCH 34.3 pg (25.7-33.7); MCHC 34.2 g/dl (32.0-36.0); MEAN CELL VOLUME 100.1 fl (80-96); MEAN PLT VOLUME 9.6 fl (7.5-11.1); MONO % 5.9 % (3.8-10.2); PLATELET COUNT 202 K/MM3 (134-434); RDW 13.1 % (11.6-15.6); WHITE BLOOD COUNT 11.2 K/mm3 (4.0-10.0)
[2021-03-21 14:45] LABS: INR 0.97 (0.83-1.09); PROTHROMBIN TIME (PATIENT) 11.8 SEC (9.7-13.0)
[2021-03-21 14:55] LABS: CHLORIDE 106 mmol/L (98-107); SODIUM 138 mmol/L (136-145)
[2021-03-21 14:56] LABS: EPI CELLS 7 /uL (0-25.1); HYALINE CASTS 1 /uL (0-3.1); URINE APPEARANCE CLEAR; URINE BACTERIA 196 /uL (0-1359); URINE BILIRUBIN NEGATIVE (NEGATIVE); URINE COLOR YELLOW; URINE GLUCOSE (UA) NEGATIVE (NEGATIVE); URINE KETONE NEGATIVE (NEGATIVE); URINE LEUK ESTERASE NEGATIVE (NEGATIVE); URINE NITRITE NEGATIVE (NEGATIVE); URINE PROTEIN NEGATIVE (NEGATIVE); URINE RBC 18 /uL (0-23.9); URINE UROBILINOGEN 0.2 mg/dL (0.2-1.0); URINE WBC 6 /uL (0-25.8)
[2021-03-21 14:58] LABS: CALCIUM 9.5 mg/dL (8.5-10.1)
[2021-03-21 14:59] LABS: ALBUMIN 4.2 g/dl (3.4-5.0); ANION GAP 7 MMOL/L (8-16); BLOOD UREA NITROGEN 5.8 mg/dL (7-18); CO2 25 mmol/L (21-32); GLUCOSE,RANDOM 115 mg/dL (74-106); LIPASE 63 U/L (73-393)
[2021-03-21 15:02] LABS: CREATININE 0.7 mg/dL (0.55-1.3); SGOT/AST 12 U/L (15-37); SGPT/ALT 34 U/L (13-61)
[2021-03-21 15:03] LABS: BILIRUBIN,TOTAL 0.5 mg/dL (0.2-1)
[2021-03-21 15:04] LABS: TOT PROT 7.8 g/dl (6.4-8.2)
[2021-03-21 15:05] LABS: ALK PHOS 113 U/L (45-117)
[2021-03-21 18:24] VITALS: BP 166/91; PULSE 89
== END 2021-03-21 18:25 | disposition home or self-care (01) ==
LOC: JER 12:42 → SUPCPDRO 12:42 → JER 18:25
PROC: 3E033NZ Introduction of Analgesics, Hypnotics, Sedatives into Peripheral Vein, Percutaneous Approach (ICD-10-PCS; principal; 2021-03-21)
PROC: 3E033GC Introduction of Other Therapeutic Substance into Peripheral Vein, Percutaneous Approach (ICD-10-PCS; 2021-03-21)
DX: R10.9 Unspecified abdominal pain (principal)
CPT/HCPCS: 36415; 76705-TC; 80053; 81003; 82550; 82962; 83690; 84484; 85025; 85610; 93005; 93010; 99285-25; J0131

== ENCOUNTER 2021-08-07 08:38 | Inpatient (IN) | payer OTHER ==
[2021-08-07 08:44] VITALS: BMI 31.9
[2021-08-07] MEDS ORDERED: FAMOTIDINE 20 MG/50 ML IVPB 20 MG/50 ML MG IVPB ONE ×2 (09:21→09:23)
[2021-08-07] MEDS ORDERED: METOCLOPRAMIDE HCL INJECTION 10 MG/2 ML VIAL ONE (09:21)
[2021-08-07] MEDS ORDERED: morphine SULFATE 4 MG/ML VIAL ONE ×2 (09:21→11:19)
[2021-08-07] MEDS ORDERED: SODIUM CHLORIDE 1,000 ML IV STA (09:23)
[2021-08-07] MEDS ORDERED: morphine CARPU-JECT 4 MG/1 ML DISP.SYRIN IVPUSH ONE (09:23)
[2021-08-07] MEDS ORDERED: METOCLOPRAMIDE HCL INJECTION 10 MG/2 ML VIAL IVPUSH ONE (09:23)
[2021-08-07 09:42] LABS: BASO % 0.5 % (0-2.0); EOS % 0.7 % (0-4.5); HEMOGLOBIN 14.9 GM/dL (10.7-15.3); LYMPH % 7.8 % (8-40); MCH 33.6 pg (25.7-33.7); MCHC 33.9 g/dl (32.0-36.0); MEAN CELL VOLUME 99.1 fl (80-96); MEAN PLT VOLUME 8.4 fl (7.5-11.1); MONO % 2.5 % (3.8-10.2); NEUT % 88.5 % (42.8-82.8); PLATELET COUNT 235 10^3/uL (134-434); RBC 4.44 M/mm3 (3.60-5.2); RDW 13.4 % (11.6-15.6); WHITE BLOOD COUNT 14.6 K/mm3 (4.0-10.0)
[2021-08-07 09:50] LABS: INR 0.86 (0.83-1.09); PROTHROMBIN TIME (PATIENT) 10.6 SEC (9.7-13.0)
[2021-08-07 09:56] LABS: CHLORIDE 108 mmol/L (98-107); SODIUM 142 mmol/L (136-145)
[2021-08-07 09:59] LABS: ALBUMIN 4.2 g/dl (3.4-5.0); ANION GAP 8 MMOL/L (8-16); BLOOD UREA NITROGEN 9.1 mg/dL (7-18); CALCIUM 10.1 mg/dL (8.5-10.1); CO2 27 mmol/L (21-32); GLUCOSE,RANDOM 129 mg/dL (74-106); LIPASE 81 U/L (73-393); MAGNESIUM 2.2 mg/dL (1.8-2.4)
[2021-08-07 10:00] LABS: AMYLASE 14 U/L (25-115)
[2021-08-07 10:02] LABS: CREATININE 0.8 mg/dL (0.55-1.3); SGOT/AST 23 U/L (15-37); SGPT/ALT 40 U/L (13-61)
[2021-08-07 10:03] LABS: BILIRUBIN,TOTAL 0.4 mg/dL (0.2-1)
[2021-08-07 10:04] LABS: TOT PROT 8.1 g/dl (6.4-8.2)
[2021-08-07 10:05] LABS: ALK PHOS 107 U/L (45-117)
[2021-08-07] MEDS ORDERED: morphine CARPU-JECT 2 MG/1 ML DISP.SYRIN IVPUSH ONE (11:20)
[2021-08-07 11:34] LABS: PH,URINE 7.5 (5.0-8.0); URINE APPEARANCE CLEAR; URINE BILIRUBIN NEGATIVE (NEGATIVE); URINE COLOR YELLOW; URINE GLUCOSE (UA) NEGATIVE (NEGATIVE); URINE KETONE NEGATIVE (NEGATIVE); URINE PROTEIN NEGATIVE (NEGATIVE)
[2021-08-07 11:35] LABS: URINE LEUK ESTERASE NEGATIVE (NEGATIVE); URINE NITRITE NEGATIVE (NEGATIVE); URINE UROBILINOGEN 0.2 mg/dL (0.2-1.0)
[2021-08-07] MEDS ORDERED: ONDANSETRON 4 MG/2 ML VIAL ONE (12:04)
[2021-08-07] MEDS ORDERED: ONDANSETRON 4 MG/2 ML VIAL IVPUSH ONE (12:11)
[2021-08-07] MEDS ORDERED: PANTOPRAZOLE SODIUM 40 MG VIAL IVPUSH ONE (13:11)
[2021-08-07] MEDS ORDERED: SUCRALFATE 1 GM/10 ML UNIT DOSE CUPS PO ONE (13:57)
[2021-08-07] MEDS ORDERED: ONDANSETRON 4 MG/2 ML VIAL IVPUSH PRN (16:00)
[2021-08-07] MEDS: HYDROmorphone HCl 2 MG/ML VIAL IVPUSH PRN ×2 (16:39→21:31)
[2021-08-07] MEDS: D5-1/2NS+20 MEQ KCL - 20 MEQ/1,000 ML INFUS.BAG IV SCH (16:45)
[2021-08-07] MEDS ORDERED: ATENOLOL 50 MG TABLET (FP) PO ONE (19:37)
[2021-08-07] MEDS ORDERED: cefTRIAXone SODIUM 1 GM VIAL ONE (19:58)
[2021-08-07] MEDS ORDERED: DEXTROSE 5%-WATER - 50 ML IVPB ONE (19:59)
[2021-08-07] MEDS: CEFTRIAXONE 1 GM in DEXTROSE 5%-WATER - 50 ML IVPB SCH (20:02)
[2021-08-07] MEDS ORDERED: PT OWN MED DRAWER 7, Y5N ONE (21:01)
[2021-08-07] MEDS: HEPARIN NA (PORCINE) 5,000 UNITS/ML 1ML VIAL SQ SCH (21:10)
[2021-08-07] MEDS: carBAMazepine 200 MG TABLET PO SCH (21:10)
[2021-08-07] MEDS: ATORVASTATIN CA 10 MG TABLET (FP) PO SCH (21:10)
[2021-08-07] MEDS: PANTOPRAZOLE SODIUM 40 MG VIAL IVPB SCH (21:11)
[2021-08-07] MEDS ORDERED: PANTOPRAZOLE SODIUM 40 MG in SODIUM CHLORIDE 100 ML IVPB SCH (22:00)
[2021-08-07] MEDS: amLODIPine BESYLATE 5 MG TABLET (FP) PO SCH (23:55)
[2021-08-08 07:07] LABS: EOS % 0.2 % (0-4.5); HEMOGLOBIN 12.7 GM/dL (10.7-15.3); LYMPH % 13.1 % (8-40); MCH 34.2 pg (25.7-33.7); MCHC 34.3 g/dl (32.0-36.0); MEAN CELL VOLUME 99.5 fl (80-96); MEAN PLT VOLUME 8.5 fl (7.5-11.1); MONO % 5.9 % (3.8-10.2); NEUT % 79.8 % (42.8-82.8); PLATELET COUNT 197 10^3/uL (134-434); RBC 3.71 M/mm3 (3.60-5.2); RDW 13.5 % (11.6-15.6); WHITE BLOOD COUNT 14.2 K/mm3 (4.0-10.0)
[2021-08-08 07:52] LABS: ALBUMIN 3.4 g/dl (3.4-5.0); BLOOD UREA NITROGEN 8.5 mg/dL (7-18)
[2021-08-08 07:53] LABS: BILIRUBIN,TOTAL 0.3 mg/dL (0.2-1); TOT PROT 6.7 g/dl (6.4-8.2)
[2021-08-08 07:54] LABS: CALCIUM 8.9 mg/dL (8.5-10.1)
[2021-08-08 07:55] LABS: CREATININE 0.7 mg/dL (0.55-1.3); PHOSPHOROUS 2.9 mg/dL (2.5-4.9)
[2021-08-08] MEDS ORDERED: cefTRIAXone SODIUM 1 GM VIAL ONE (08:49)
[2021-08-08] MEDS ORDERED: DEXTROSE 5%-WATER - 50 ML IVPB ONE (08:49)
[2021-08-08] MEDS: CEFTRIAXONE 1 GM in DEXTROSE 5%-WATER - 50 ML IVPB SCH (09:00)
[2021-08-08] MEDS: amLODIPine BESYLATE 5 MG TABLET (FP) PO SCH ×2 (09:01→10:40)
[2021-08-08] MEDS: carBAMazepine 200 MG TABLET PO SCH ×3 (09:01→21:08)
[2021-08-08] MEDS: HEPARIN NA (PORCINE) 5,000 UNITS/ML 1ML VIAL SQ SCH ×2 (09:02→21:12)
[2021-08-08] MEDS: PANTOPRAZOLE SODIUM 40 MG VIAL IVPB SCH ×2 (10:23→21:12)
[2021-08-08] MEDS ORDERED: PT OWN MED DRAWER 7, Y5N ONE (10:37)
[2021-08-08] MEDS: D5-1/2NS+20 MEQ KCL - 20 MEQ/1,000 ML INFUS.BAG IV SCH ×2 (12:18→17:47)
[2021-08-08] MEDS: ATENOLOL 50 MG TABLET (FP) PO SCH (21:08)
[2021-08-08] MEDS: ATORVASTATIN CA 10 MG TABLET (FP) PO SCH (21:09)
[2021-08-09] MEDS: D5-1/2NS+20 MEQ KCL - 20 MEQ/1,000 ML INFUS.BAG IV SCH ×2 (00:25→18:03)
[2021-08-09] MEDS ORDERED: cefTRIAXone SODIUM 1 GM VIAL ONE (08:28)
[2021-08-09] MEDS ORDERED: DEXTROSE 5%-WATER - 50 ML IVPB ONE (08:28)
[2021-08-09] MEDS: amLODIPine BESYLATE 5 MG TABLET (FP) PO SCH (09:25)
[2021-08-09] MEDS: HEPARIN NA (PORCINE) 5,000 UNITS/ML 1ML VIAL SQ SCH ×3 (09:54→22:08)
[2021-08-09] MEDS: CEFTRIAXONE 1 GM in DEXTROSE 5%-WATER - 50 ML IVPB SCH (10:00)
[2021-08-09] MEDS: carBAMazepine 200 MG TABLET PO SCH ×2 (10:00→22:12)
[2021-08-09] MEDS: PANTOPRAZOLE SODIUM 40 MG VIAL IVPB SCH ×2 (10:50→22:12)
[2021-08-09] MEDS: HYDROmorphone HCl 2 MG/ML VIAL IVPUSH PRN (13:14)
[2021-08-09] MEDS ORDERED: morphine SULFATE 4 MG/ML VIAL IVPUSH ONE (13:30)
[2021-08-09 20:08] LABS: BASO % 1.4 % (0-2.0); HEMATOCRIT 37.9 % (32.4-45.2); HEMOGLOBIN 13.1 GM/dL (10.7-15.3); LYMPH % 21.6 % (8-40); MCH 34.6 pg (25.7-33.7); MCHC 34.6 g/dl (32.0-36.0); MEAN PLT VOLUME 8.7 fl (7.5-11.1); MONO % 5.2 % (3.8-10.2); NEUT % 70.8 % (42.8-82.8); PLATELET COUNT 194 10^3/uL (134-434); RBC 3.79 M/mm3 (3.60-5.2)
[2021-08-09 20:33] LABS: BLOOD UREA NITROGEN 5.5 mg/dL (7-18); CALCIUM 8.9 mg/dL (8.5-10.1)
[2021-08-09 20:34] LABS: ALBUMIN 3.5 g/dl (3.4-5.0)
[2021-08-09 20:37] LABS: CREATININE 0.7 mg/dL (0.55-1.3)
[2021-08-09 20:38] LABS: BILIRUBIN,TOTAL 0.4 mg/dL (0.2-1)
[2021-08-09 20:39] LABS: TOT PROT 6.8 g/dl (6.4-8.2)
[2021-08-09] MEDS: ATORVASTATIN CA 10 MG TABLET (FP) PO SCH (22:12)
[2021-08-09] MEDS: ATENOLOL 50 MG TABLET (FP) PO SCH (22:15)
[2021-08-10] MEDS: D5-1/2NS+20 MEQ KCL - 20 MEQ/1,000 ML INFUS.BAG IV SCH ×2 (02:41→13:01)
[2021-08-10] MEDS ORDERED: cefTRIAXone SODIUM 1 GM VIAL ONE (09:01)
[2021-08-10] MEDS ORDERED: PT OWN MED DRAWER 7, Y5N ONE ×2 (09:01→23:07)
[2021-08-10] MEDS ORDERED: DEXTROSE 5%-WATER - 50 ML IVPB ONE (09:01)
[2021-08-10] MEDS: CEFTRIAXONE 1 GM in DEXTROSE 5%-WATER - 50 ML IVPB SCH (09:13)
[2021-08-10] MEDS: HEPARIN NA (PORCINE) 5,000 UNITS/ML 1ML VIAL SQ SCH ×2 (09:21→23:17)
[2021-08-10] MEDS: PANTOPRAZOLE SODIUM 40 MG VIAL IVPB SCH ×2 (09:22→23:16)
[2021-08-10] MEDS: amLODIPine BESYLATE 5 MG TABLET (FP) PO SCH (09:22)
[2021-08-10] MEDS: carBAMazepine 200 MG TABLET PO SCH ×2 (09:24→23:15)
[2021-08-10] MEDS ORDERED: ACETAMINOPHEN 325 MG TABLET (FP) PO PRN (09:47)
[2021-08-10] MEDS ORDERED: HYDROmorphone HCl 2 MG/ML VIAL IVPB PRN (09:49)
[2021-08-10 11:05] LABS: BASO % 0.9 % (0-2.0); EOS % 1.5 % (0-4.5); HEMATOCRIT 38.8 % (32.4-45.2); HEMOGLOBIN 13.6 GM/dL (10.7-15.3); LYMPH % 16.9 % (8-40); MEAN CELL VOLUME 100.1 fl (80-96); MEAN PLT VOLUME 9.3 fl (7.5-11.1); MONO % 6.5 % (3.8-10.2); NEUT % 74.2 % (42.8-82.8); PLATELET COUNT 209 10^3/uL (134-434); RBC 3.88 M/mm3 (3.60-5.2); RDW 13.1 % (11.6-15.6); WHITE BLOOD COUNT 9.6 K/mm3 (4.0-10.0)
[2021-08-10 12:29] LABS: ALBUMIN 3.6 g/dl (3.4-5.0); BILIRUBIN,TOTAL 0.5 mg/dL (0.2-1); BLOOD UREA NITROGEN 5.4 mg/dL (7-18); CHLORIDE 106 mmol/L (98-107); CO2 31 mmol/L (21-32); CREATININE 0.7 mg/dL (0.55-1.3); GLUCOSE,RANDOM 107 mg/dL (74-106); SGOT/AST 16 U/L (15-37); SODIUM 140 mmol/L (136-145); TOT PROT 6.6 g/dl (6.4-8.2)
[2021-08-10 12:30] LABS: ALK PHOS 82 U/L (45-117); SGPT/ALT 26 U/L (13-61)
[2021-08-10] MEDS: VALSARTAN 80 MG TABLET PO SCH (12:58)
[2021-08-10] MEDS: ATORVASTATIN CA 10 MG TABLET (FP) PO SCH (23:15)
[2021-08-10] MEDS: ATENOLOL 50 MG TABLET (FP) PO SCH (23:29)
[2021-08-11] MEDS: D5-1/2NS+20 MEQ KCL - 20 MEQ/1,000 ML INFUS.BAG IV SCH ×2 (03:56→16:57)
[2021-08-11 08:46] LABS: BLOOD UREA NITROGEN 4.2 mg/dL (7-18); CREATININE 0.5 mg/dL (0.55-1.3); GLUCOSE,RANDOM 120 mg/dL (74-106)
[2021-08-11 08:47] LABS: ALBUMIN 3.3 g/dl (3.4-5.0); ALK PHOS 81 U/L (45-117); BILIRUBIN,TOTAL 0.5 mg/dL (0.2-1); CALCIUM 8.7 mg/dL (8.5-10.1); CHLORIDE 111 mmol/L (98-107); CO2 25 mmol/L (21-32); SGOT/AST 18 U/L (15-37); SGPT/ALT 25 U/L (13-61); SODIUM 142 mmol/L (136-145); TOT PROT 6.7 g/dl (6.4-8.2)
[2021-08-11] MEDS ORDERED: PT OWN MED DRAWER 7, Y5N ONE ×2 (09:48→21:40)
[2021-08-11] MEDS ORDERED: cefTRIAXone SODIUM 1 GM VIAL ONE (09:48)
[2021-08-11] MEDS ORDERED: DEXTROSE 5%-WATER - 50 ML IVPB ONE (09:49)
[2021-08-11] MEDS: amLODIPine BESYLATE 5 MG TABLET (FP) PO SCH (09:54)
[2021-08-11] MEDS: HEPARIN NA (PORCINE) 5,000 UNITS/ML 1ML VIAL SQ SCH ×2 (09:54→21:49)
[2021-08-11] MEDS: carBAMazepine 200 MG TABLET PO SCH ×2 (09:54→21:46)
[2021-08-11] MEDS: VALSARTAN 80 MG TABLET PO SCH ×2 (09:54→21:46)
[2021-08-11] MEDS: PANTOPRAZOLE SODIUM 40 MG VIAL IVPB SCH ×2 (09:56→21:46)
[2021-08-11] MEDS: CEFTRIAXONE 1 GM in DEXTROSE 5%-WATER - 50 ML IVPB SCH (09:56)
[2021-08-11 10:37] LABS: HEMATOCRIT 39.8 % (32.4-45.2); HEMOGLOBIN 13.6 GM/dL (10.7-15.3); MCH 34.1 pg (25.7-33.7); MCHC 34.1 g/dl (32.0-36.0); MEAN PLT VOLUME 9.4 fl (7.5-11.1); PLATELET COUNT 184 10^3/uL (134-434); RBC 3.98 M/mm3 (3.60-5.2); RDW 13.3 % (11.6-15.6); WHITE BLOOD COUNT 9.3 K/mm3 (4.0-10.0)
[2021-08-11 12:04] LABS: ANISOCYTOSIS 0; HELMET CELLS 0; HOWELL-JOLLY BODIES 0; MACROCYTOSIS 0; OVALOCYTE 0; PLATELET ESTIMATE NORMAL; ROULEAU 0; SICKELED CELLS 0; TARGET CELLS 0; TEAR DROP CELLS 0; TOXIC GRANULATION 0
[2021-08-11] MEDS: ATENOLOL 50 MG TABLET (FP) PO SCH (21:46)
[2021-08-11] MEDS: ATORVASTATIN CA 10 MG TABLET (FP) PO SCH (21:46)
[2021-08-12] MEDS: D5-1/2NS+20 MEQ KCL - 20 MEQ/1,000 ML INFUS.BAG IV SCH (03:02)
[2021-08-12] MEDS ORDERED: cefTRIAXone SODIUM 1 GM VIAL ONE (10:08)
[2021-08-12] MEDS ORDERED: PT OWN MED DRAWER 7, Y5N ONE (10:08)
[2021-08-12] MEDS ORDERED: DEXTROSE 5%-WATER - 50 ML IVPB ONE (10:08)
[2021-08-12] MEDS: amLODIPine BESYLATE 5 MG TABLET (FP) PO SCH (10:44)
[2021-08-12] MEDS: carBAMazepine 200 MG TABLET PO SCH ×2 (10:44→21:37)
[2021-08-12] MEDS: VALSARTAN 80 MG TABLET PO SCH ×2 (10:44→21:37)
[2021-08-12] MEDS: HEPARIN NA (PORCINE) 5,000 UNITS/ML 1ML VIAL SQ SCH ×2 (10:44→21:37)
[2021-08-12] MEDS: PANTOPRAZOLE SODIUM 40 MG VIAL IVPB SCH ×2 (10:44→21:37)
[2021-08-12] MEDS: CEFTRIAXONE 1 GM in DEXTROSE 5%-WATER - 50 ML IVPB SCH (10:47)
[2021-08-12] MEDS: ATORVASTATIN CA 10 MG TABLET (FP) PO SCH (21:37)
[2021-08-12] MEDS: ATENOLOL 50 MG TABLET (FP) PO SCH (21:38)
[2021-08-13] MEDS: D5-1/2NS+20 MEQ KCL - 20 MEQ/1,000 ML INFUS.BAG IV SCH (01:43)
[2021-08-13] MEDS ORDERED: DEXTROSE 5%-WATER - 50 ML IVPB ONE (09:06)
[2021-08-13] MEDS ORDERED: cefTRIAXone SODIUM 1 GM VIAL ONE (09:06)
[2021-08-13] MEDS: VALSARTAN 80 MG TABLET PO SCH (09:30)
[2021-08-13] MEDS: amLODIPine BESYLATE 5 MG TABLET (FP) PO SCH (09:30)
[2021-08-13] MEDS: PANTOPRAZOLE SODIUM 40 MG VIAL IVPB SCH (09:30)
[2021-08-13] MEDS: CEFTRIAXONE 1 GM in DEXTROSE 5%-WATER - 50 ML IVPB SCH (09:30)
[2021-08-13] MEDS: HEPARIN NA (PORCINE) 5,000 UNITS/ML 1ML VIAL SQ SCH (09:31)
[2021-08-13] MEDS: carBAMazepine 200 MG TABLET PO SCH (09:31)
[2021-08-13 09:46] VITALS: BP 148/87; PULSE 69; TEMP 98.6
== END 2021-08-13 12:37 | disposition home or self-care (01) | DRG 392 ==
LOC: JER 08:38 → JERBED 12:13 → INTOOBSV 12:13 → J7W 15:35 → OBSVTOIN 15:57
PROVIDERS: ADMIT Family Medicine; ATTEND Family Medicine
DX: R10.12 Left upper quadrant pain (principal); I25.10 Atherosclerotic heart disease of native coronary artery without angina pectoris; I10 Essential (primary) hypertension; E66.9 Obesity, unspecified; Z68.32 Body mass index [BMI] 32.0-32.9, adult; D72.829 Elevated white blood cell count, unspecified; G40.909 Epilepsy, unspecified, not intractable, without status epilepticus; R10.13 Epigastric pain; E86.0 Dehydration; K29.70 Gastritis, unspecified, without bleeding; R11.2 Nausea with vomiting, unspecified; K81.1 Chronic cholecystitis; K76.0 Fatty (change of) liver, not elsewhere classified; D35.00 Benign neoplasm of unspecified adrenal gland; Z95.5 Presence of coronary angioplasty implant and graft
CPT/HCPCS: 36415; 71045-TC-FY; 74174-TC; 74177-TC; 76705-TC; 80053; 81003; 82150; 82248; 82550; 83605; 83615; 83690; 83735; 84100; 84443; 84484; 85025; 85610; 85651; 86140; 86850; 86900; 86901; 87040; 93005; 93010; 99285-25; C9803; G0378; J1644; Q9967; U0003; U0005

== ENCOUNTER 2021-12-04 03:53 | Inpatient (IN) | payer OTHER ==
[2021-12-04] MEDS ORDERED: SODIUM CHLORIDE 0.9% 500 ML INFUS.BAG IV ONE ×2 (04:14→06:35)
[2021-12-04] MEDS ORDERED: ONDANSETRON 4 MG/2 ML VIAL IVPUSH ONE ×2 (04:14→04:48)
[2021-12-04] MEDS ORDERED: morphine CARPU-JECT 4 MG/1 ML DISP.SYRIN IVPUSH ONE (04:14)
[2021-12-04] MEDS ORDERED: FAMOTIDINE 20 MG/50 ML IVPB 20 MG/50 ML MG IVPB ONE ×3 (04:15→07:35)
[2021-12-04] MEDS ORDERED: morphine SULFATE 4 MG/ML VIAL ONE (04:20)
[2021-12-04] MEDS ORDERED: ONDANSETRON 4 MG/2 ML VIAL ONE ×2 (04:20→04:48)
[2021-12-04 04:46] LABS: BASO % 0.5 % (0-2.0); EOS % 0.9 % (0-4.5); HEMATOCRIT 39.5 % (32.4-45.2); HEMOGLOBIN 13.3 GM/dL (10.7-15.3); LYMPH % 7.6 % (8-40); MCH 32.9 pg (25.7-33.7); MCHC 33.7 g/dl (32.0-36.0); MEAN CELL VOLUME 97.9 fl (80-96); MEAN PLT VOLUME 8.7 fl (7.5-11.1); MONO % 2.5 % (3.8-10.2); NEUT % 88.5 % (42.8-82.8); PLATELET COUNT 243 10^3/uL (134-434); RBC 4.04 M/mm3 (3.60-5.2); WHITE BLOOD COUNT 13.3 K/mm3 (4.0-10.0)
[2021-12-04 05:05] LABS: CHLORIDE 107 mmol/L (98-107); SODIUM 140 mmol/L (136-145)
[2021-12-04 05:07] LABS: CALCIUM 9.5 mg/dL (8.5-10.1)
[2021-12-04 05:08] LABS: ANION GAP 6 MMOL/L (8-16); CO2 27 mmol/L (21-32); GLUCOSE,RANDOM 132 mg/dL (74-106); LIPASE 179 U/L (73-393)
[2021-12-04 05:11] LABS: CREATININE 0.7 mg/dL (0.55-1.3); SGOT/AST 27 U/L (15-37); SGPT/ALT 25 U/L (13-61)
[2021-12-04 05:12] LABS: TOT PROT 7.5 g/dl (6.4-8.2)
[2021-12-04 05:13] LABS: ALK PHOS 97 U/L (45-117); BILIRUBIN,TOTAL 0.3 mg/dL (0.2-1)
[2021-12-04 05:26] LABS: LACTIC ACID 2.2 mmol/L (0.4-2.0)
[2021-12-04] MEDS ORDERED: METOCLOPRAMIDE HCL INJECTION 10 MG/2 ML VIAL IVPB ONE (06:35)
[2021-12-04] MEDS ORDERED: CIPROFLOXACIN 400 MG/D5W 400 MG/200 ML IVPB IVPB ONE (06:37)
[2021-12-04] MEDS ORDERED: METOCLOPRAMIDE HCL INJECTION 10 MG/2 ML VIAL ONE (06:40)
[2021-12-04] MEDS ORDERED: morphine CARPU-JECT 2 MG/1 ML DISP.SYRIN IVPUSH ONE (07:36)
[2021-12-04] MEDS ORDERED: SUCRALFATE 1 GM/10 ML UNIT DOSE CUPS PO ONE (07:36)
[2021-12-04] MEDS ORDERED: HYDROmorphone HCL CARPU-JECT 2 MG/1 ML DISP.SYRIN IVPB ONE (08:48)
[2021-12-04] MEDS ORDERED: HYDROmorphone HCl 2 MG/ML VIAL ONE (08:52)
[2021-12-04 13:03] LABS: INR 0.84 (0.83-1.09); PROTHROMBIN TIME (PATIENT) 9.7 SEC (9.7-13.0)
[2021-12-04] MEDS ORDERED: ATENOLOL 25 MG TABLET (FP) ONE (15:51)
[2021-12-04] MEDS ORDERED: GABAPENTIN 100 MG CAPSULE ONE (15:51)
[2021-12-04] MEDS ORDERED: PANTOPRAZOLE 40 MG TABLET ONE (15:51)
[2021-12-04] MEDS ORDERED: carBAMazepine 200 MG TABLET ONE (15:51)
[2021-12-04] MEDS ORDERED: VALSARTAN 80 MG TABLET ONE (15:51)
[2021-12-04] MEDS ORDERED: amLODIPine BESYLATE 5 MG TABLET (FP) ONE (15:51)
[2021-12-04] MEDS: amLODIPine BESYLATE 5 MG TABLET (FP) PO SCH (20:31)
[2021-12-04] MEDS: VALSARTAN 80 MG TABLET PO SCH (20:31)
[2021-12-04] MEDS: GABAPENTIN 100 MG CAPSULE PO SCH (20:31)
[2021-12-04] MEDS: carBAMazepine 200 MG TABLET PO SCH ×2 (20:32→23:38)
[2021-12-04] MEDS: ATENOLOL 50 MG TABLET (FP) PO SCH (20:32)
[2021-12-04] MEDS: PANTOPRAZOLE SODIUM 40 MG VIAL IVPUSH SCH (20:32)
[2021-12-04] MEDS: ROSUVASTATIN CA 20 MG TABLET PO SCH (23:13)
[2021-12-05 00:14] VITALS: BMI 32.5
[2021-12-05 09:26] LABS: BASO % 0.6 % (0-2.0); EOS % 1.1 % (0-4.5); HEMATOCRIT 36.8 % (32.4-45.2); HEMOGLOBIN 12.6 GM/dL (10.7-15.3); LYMPH % 22.7 % (8-40); MCH 33.3 pg (25.7-33.7); MCHC 34.2 g/dl (32.0-36.0); MEAN CELL VOLUME 97.4 fl (80-96); MEAN PLT VOLUME 8.5 fl (7.5-11.1); NEUT % 69.6 % (42.8-82.8); PLATELET COUNT 217 10^3/uL (134-434); RBC 3.78 M/mm3 (3.60-5.2); RDW 14.1 % (11.6-15.6); WHITE BLOOD COUNT 9.1 K/mm3 (4.0-10.0)
[2021-12-05] MEDS: PANTOPRAZOLE SODIUM 40 MG VIAL IVPUSH SCH (09:27)
[2021-12-05] MEDS: ATENOLOL 50 MG TABLET (FP) PO SCH (09:27)
[2021-12-05] MEDS: VALSARTAN 80 MG TABLET PO SCH (09:27)
[2021-12-05] MEDS: amLODIPine BESYLATE 5 MG TABLET (FP) PO SCH (09:27)
[2021-12-05] MEDS: GABAPENTIN 100 MG CAPSULE PO SCH (09:28)
[2021-12-05] MEDS: carBAMazepine 200 MG TABLET PO SCH ×2 (09:41→21:54)
[2021-12-05 11:33] LABS: CALCIUM 9.6 mg/dL (8.5-10.1)
[2021-12-05 11:34] LABS: ALBUMIN 3.8 g/dl (3.4-5.0); BLOOD UREA NITROGEN 5.8 mg/dL (7-18)
[2021-12-05 11:37] LABS: CREATININE 0.7 mg/dL (0.55-1.3)
[2021-12-05 11:39] LABS: BILIRUBIN,TOTAL 0.3 mg/dL (0.2-1); TOT PROT 7.1 g/dl (6.4-8.2)
[2021-12-05] MEDS: ONDANSETRON 4 MG/2 ML VIAL IVPB STA ×2 (15:08→15:11)
[2021-12-05] MEDS: METOCLOPRAMIDE HCL INJECTION 10 MG/2 ML VIAL IVPB SCH ×2 (15:10→21:56)
[2021-12-05] MEDS: SIMETHICONE 80 MG TAB.CHEW (FP) PO SCH ×2 (17:40→21:54)
[2021-12-05] MEDS ORDERED: KETOROLAC TROMETHAMINE 30 MG/1 ML VIAL IVPUSH SCH (18:00)
[2021-12-05] MEDS ORDERED: cefTRIAXone SODIUM 1 GM VIAL ONE (18:07)
[2021-12-05] MEDS ORDERED: DEXTROSE 5%-WATER - 50 ML IVPB ONE (18:07)
[2021-12-05] MEDS: CEFTRIAXONE 1 GM in DEXTROSE 5%-WATER - 50 ML IVPB SCH (18:32)
[2021-12-05] MEDS ORDERED: KETOROLAC TROMETHAMINE 60 MG/2 ML VIAL IM PRN (18:37)
[2021-12-05] MEDS ORDERED: KETOROLAC TROMETHAMINE 30 MG/1 ML VIAL IM PRN (18:52)
[2021-12-05 20:41] LABS: BASO % 0.9 % (0-2.0); EOS % 1.3 % (0-4.5); HEMATOCRIT 36.7 % (32.4-45.2); HEMOGLOBIN 12.1 GM/dL (10.7-15.3); LYMPH % 16.8 % (8-40); MCH 32.1 pg (25.7-33.7); MCHC 32.9 g/dl (32.0-36.0); MEAN CELL VOLUME 97.6 fl (80-96); MONO % 5.1 % (3.8-10.2); NEUT % 75.9 % (42.8-82.8); PLATELET COUNT 223 10^3/uL (134-434); RBC 3.76 M/mm3 (3.60-5.2); RDW 13.8 % (11.6-15.6); WHITE BLOOD COUNT 11.4 K/mm3 (4.0-10.0)
[2021-12-05 21:12] LABS: CALCIUM 9.6 mg/dL (8.5-10.1)
[2021-12-05 21:13] LABS: ALBUMIN 3.8 g/dl (3.4-5.0)
[2021-12-05 21:16] LABS: CREATININE 0.7 mg/dL (0.55-1.3)
[2021-12-05 21:19] LABS: BILIRUBIN,TOTAL 0.5 mg/dL (0.2-1); TOT PROT 7.1 g/dl (6.4-8.2)
[2021-12-05 21:42] LABS: BLOOD UREA NITROGEN 4.5 mg/dL (7-18)
[2021-12-05] MEDS: RIFAXIMIN 550 MG TABLET PO SCH (21:54)
[2021-12-05] MEDS: ROSUVASTATIN CA 20 MG TABLET PO SCH (21:54)
[2021-12-06] MEDS: RIFAXIMIN 550 MG TABLET PO SCH ×3 (05:42→21:10)
[2021-12-06] MEDS: METOCLOPRAMIDE HCL INJECTION 10 MG/2 ML VIAL IVPB SCH ×3 (05:42→22:24)
[2021-12-06] MEDS ORDERED: cefTRIAXone SODIUM 1 GM VIAL ONE (09:09)
[2021-12-06] MEDS ORDERED: DEXTROSE 5%-WATER - 50 ML IVPB ONE (09:10)
[2021-12-06] MEDS: PANTOPRAZOLE SODIUM 40 MG VIAL IVPUSH SCH (09:16)
[2021-12-06] MEDS: amLODIPine BESYLATE 5 MG TABLET (FP) PO SCH (09:16)
[2021-12-06] MEDS: VALSARTAN 80 MG TABLET PO SCH (09:16)
[2021-12-06] MEDS: SIMETHICONE 80 MG TAB.CHEW (FP) PO SCH ×4 (09:16→21:10)
[2021-12-06] MEDS: carBAMazepine 200 MG TABLET PO SCH ×2 (09:16→21:10)
[2021-12-06] MEDS: GABAPENTIN 100 MG CAPSULE PO SCH (09:16)
[2021-12-06] MEDS: ATENOLOL 50 MG TABLET (FP) PO SCH (09:16)
[2021-12-06] MEDS: CEFTRIAXONE 1 GM in DEXTROSE 5%-WATER - 50 ML IVPB SCH (09:16)
[2021-12-06 09:37] LABS: BASO % 0.5 % (0-2.0); EOS % 0.8 % (0-4.5); HEMATOCRIT 37.1 % (32.4-45.2); HEMOGLOBIN 12.4 GM/dL (10.7-15.3); LYMPH % 23.9 % (8-40); MCH 32.8 pg (25.7-33.7); MCHC 33.5 g/dl (32.0-36.0); MEAN CELL VOLUME 97.8 fl (80-96); MONO % 6.5 % (3.8-10.2); NEUT % 68.3 % (42.8-82.8); PLATELET COUNT 227 10^3/uL (134-434); RBC 3.79 M/mm3 (3.60-5.2); RDW 13.5 % (11.6-15.6); WHITE BLOOD COUNT 10.8 K/mm3 (4.0-10.0)
[2021-12-06 09:47] LABS: ALBUMIN 3.9 g/dl (3.4-5.0); BLOOD UREA NITROGEN 5.2 mg/dL (7-18); CALCIUM 9.7 mg/dL (8.5-10.1)
[2021-12-06 09:50] LABS: CREATININE 0.7 mg/dL (0.55-1.3)
[2021-12-06 09:52] LABS: BILIRUBIN,TOTAL 0.5 mg/dL (0.2-1); TOT PROT 7.1 g/dl (6.4-8.2)
[2021-12-06] MEDS: KCL 10 MEQ IVPB 10 MEQ/100 ML INFUS.BAG IVPB SCH ×2 (12:30→13:38)
[2021-12-06] MEDS ORDERED: KETOROLAC TROMETHAMINE 30 MG/1 ML VIAL IVPUSH PRN (18:41)
[2021-12-06] MEDS: POLYETHYLENE GLYCOL (HEALTHYLAX) 3350 17 GM PACKET PO SCH (21:10)
[2021-12-06] MEDS: ROSUVASTATIN CA 20 MG TABLET PO SCH (21:10)
[2021-12-07] MEDS: RIFAXIMIN 550 MG TABLET PO SCH ×3 (06:22→21:16)
[2021-12-07] MEDS: METOCLOPRAMIDE HCL INJECTION 10 MG/2 ML VIAL IVPB SCH ×3 (06:22→22:30)
[2021-12-07] MEDS ORDERED: cefTRIAXone SODIUM 1 GM VIAL ONE (09:27)
[2021-12-07] MEDS ORDERED: DEXTROSE 5%-WATER - 50 ML IVPB ONE (09:28)
[2021-12-07] MEDS: POLYETHYLENE GLYCOL (HEALTHYLAX) 3350 17 GM PACKET PO SCH ×2 (09:37→21:16)
[2021-12-07] MEDS: CEFTRIAXONE 1 GM in DEXTROSE 5%-WATER - 50 ML IVPB SCH (09:37)
[2021-12-07] MEDS: PANTOPRAZOLE SODIUM 40 MG VIAL IVPUSH SCH (09:37)
[2021-12-07] MEDS: SIMETHICONE 80 MG TAB.CHEW (FP) PO SCH ×4 (09:38→21:16)
[2021-12-07] MEDS: ATENOLOL 50 MG TABLET (FP) PO SCH (09:38)
[2021-12-07] MEDS: VALSARTAN 80 MG TABLET PO SCH (09:38)
[2021-12-07] MEDS: GABAPENTIN 100 MG CAPSULE PO SCH (09:38)
[2021-12-07] MEDS: amLODIPine BESYLATE 5 MG TABLET (FP) PO SCH (09:39)
[2021-12-07] MEDS: carBAMazepine 200 MG TABLET PO SCH ×2 (09:39→21:16)
[2021-12-07 13:01] LABS: BASO % 0.8 % (0-2.0); EOS % 2.1 % (0-4.5); HEMATOCRIT 36.2 % (32.4-45.2); HEMOGLOBIN 12.7 GM/dL (10.7-15.3); LYMPH % 17.6 % (8-40); MCHC 35.2 g/dl (32.0-36.0); MEAN CELL VOLUME 96.5 fl (80-96); MEAN PLT VOLUME 8.7 fl (7.5-11.1); MONO % 6.6 % (3.8-10.2); NEUT % 72.9 % (42.8-82.8); PLATELET COUNT 226 10^3/uL (134-434); RBC 3.75 M/mm3 (3.60-5.2); RDW 13.7 % (11.6-15.6); WHITE BLOOD COUNT 10.9 K/mm3 (4.0-10.0)
[2021-12-07 13:27] LABS: ALBUMIN 3.8 g/dl (3.4-5.0); BLOOD UREA NITROGEN 8.2 mg/dL (7-18); CALCIUM 8.9 mg/dL (8.5-10.1)
[2021-12-07 13:30] LABS: CREATININE 0.7 mg/dL (0.55-1.3)
[2021-12-07 13:32] LABS: BILIRUBIN,TOTAL 0.4 mg/dL (0.2-1)
[2021-12-07] MEDS: ROSUVASTATIN CA 20 MG TABLET PO SCH (21:16)
[2021-12-08] MEDS: METOCLOPRAMIDE HCL INJECTION 10 MG/2 ML VIAL IVPB SCH (05:53)
[2021-12-08] MEDS: RIFAXIMIN 550 MG TABLET PO SCH ×2 (05:53→15:38)
[2021-12-08] MEDS ORDERED: cefTRIAXone SODIUM 1 GM VIAL ONE (09:50)
[2021-12-08] MEDS ORDERED: DEXTROSE 5%-WATER - 50 ML IVPB ONE (09:50)
[2021-12-08] MEDS: POLYETHYLENE GLYCOL (HEALTHYLAX) 3350 17 GM PACKET PO SCH (09:57)
[2021-12-08] MEDS: GABAPENTIN 100 MG CAPSULE PO SCH (09:58)
[2021-12-08] MEDS: SIMETHICONE 80 MG TAB.CHEW (FP) PO SCH ×2 (09:58→15:38)
[2021-12-08] MEDS: VALSARTAN 80 MG TABLET PO SCH (09:58)
[2021-12-08] MEDS: carBAMazepine 200 MG TABLET PO SCH (09:58)
[2021-12-08] MEDS: ATENOLOL 50 MG TABLET (FP) PO SCH (09:58)
[2021-12-08] MEDS: CEFTRIAXONE 1 GM in DEXTROSE 5%-WATER - 50 ML IVPB SCH (09:58)
[2021-12-08] MEDS: PANTOPRAZOLE SODIUM 40 MG VIAL IVPUSH SCH (09:58)
[2021-12-08] MEDS: amLODIPine BESYLATE 5 MG TABLET (FP) PO SCH (09:59)
[2021-12-08 13:50] VITALS: BP 151/73; PULSE 68; TEMP 99.1
[2021-12-08] MEDS ORDERED: metroNIDAZOLE 500 MG TABLET PO SCH (14:00)
[2021-12-08] MEDS ORDERED: metroNIDAZOLE 250 MG TABLET PO SCH (15:30)
[2021-12-08] MEDS ORDERED: METOCLOPRAMIDE HCL 10 MG TABLET (FP) PO SCH (16:30)
== END 2021-12-08 18:24 | disposition home or self-care (01) | DRG 392 ==
LOC: JER 03:53 → SUATTDRO 03:53 → JERBED 08:22 → J6S 23:02
PROVIDERS: ADMIT Family Medicine; ATTEND Family Medicine
DX: R10.9 Unspecified abdominal pain (principal); I25.10 Atherosclerotic heart disease of native coronary artery without angina pectoris; I10 Essential (primary) hypertension; K29.60 Other gastritis without bleeding; N28.1 Cyst of kidney, acquired; D72.829 Elevated white blood cell count, unspecified; K58.9 Irritable bowel syndrome, unspecified; R10.13 Epigastric pain; M54.50 Low back pain, unspecified
CPT/HCPCS: 36415; 71045-TC-FY; 74018-TC-FY; 74177-TC; 80053; 82550; 83605; 83690; 84484; 85025; 85610; 93005; 93010; 99285-25; C9803; U0003; U0005

== ENCOUNTER 2021-12-31 23:46 | Inpatient (IN) | payer OTHER ==
[2022-01-01] MEDS ORDERED: SODIUM CHLORIDE 1,000 ML IV STA (00:25)
[2022-01-01] MEDS ORDERED: morphine CARPU-JECT 2 MG/1 ML DISP.SYRIN IVPUSH ONE ×3 (00:25→02:47)
[2022-01-01] MEDS ORDERED: PANTOPRAZOLE SODIUM 40 MG in SODIUM CHLORIDE 100 ML IVPB ONE (00:30)
[2022-01-01] MEDS ORDERED: METOCLOPRAMIDE HCL INJECTION 10 MG/2 ML VIAL ONE (00:36)
[2022-01-01] MEDS ORDERED: METOCLOPRAMIDE HCL INJECTION 10 MG/2 ML VIAL IVPUSH ONE (00:38)
[2022-01-01] MEDS ORDERED: PANTOPRAZOLE SODIUM 40 MG/100 ML BAG IVPB ONE (01:14)
[2022-01-01 01:16] LABS: BASO % 0.5 % (0-2.0); EOS % 0.6 % (0-4.5); HEMATOCRIT 40.4 % (32.4-45.2); HEMOGLOBIN 13.8 GM/dL (10.7-15.3); LYMPH % 10.9 % (8-40); MCH 33.5 pg (25.7-33.7); MCHC 34.2 g/dl (32.0-36.0); MEAN PLT VOLUME 9.1 fl (7.5-11.1); MONO % 2.6 % (3.8-10.2); NEUT % 85.4 % (42.8-82.8); PLATELET COUNT 246 10^3/uL (134-434); RBC 4.12 M/mm3 (3.60-5.2); RDW 14.3 % (11.6-15.6); WHITE BLOOD COUNT 11.9 K/mm3 (4.0-10.0)
[2022-01-01 01:50] LABS: CALCIUM 9.6 mg/dL (8.5-10.1)
[2022-01-01 01:51] LABS: ALBUMIN 4.1 g/dl (3.4-5.0); BLOOD UREA NITROGEN 9.4 mg/dL (7-18); MAGNESIUM 2.2 mg/dL (1.8-2.4)
[2022-01-01 01:53] LABS: LACTIC ACID 3.6 mmol/L (0.4-2.0)
[2022-01-01 01:54] LABS: CREATININE 0.8 mg/dL (0.55-1.3)
[2022-01-01 01:55] LABS: BILIRUBIN,TOTAL 0.3 mg/dL (0.2-1); TOT PROT 7.8 g/dl (6.4-8.2)
[2022-01-01] MEDS ORDERED: HYDROmorphone HCL CARPU-JECT 2 MG/1 ML DISP.SYRIN IVPUSH STA (03:02)
[2022-01-01] MEDS ORDERED: HYDROmorphone HCl 2 MG/ML VIAL ONE (03:44)
[2022-01-01] MEDS ORDERED: ACETAMINOPHEN 1000 MG/100 ML BAG IVPB PRN (09:53)
[2022-01-01] MEDS ORDERED: morphine SULFATE 4 MG/ML VIAL IVPUSH PRN (09:57)
[2022-01-01] MEDS: ATENOLOL 50 MG TABLET (FP) PO SCH (10:30)
[2022-01-01] MEDS: DEXTROSE 5%-NORMAL SALINE 1,000 ML IV SCH (11:00)
[2022-01-01] MEDS: amLODIPine BESYLATE 5 MG TABLET (FP) PO SCH (12:28)
[2022-01-01 13:50] LABS: BASO % 0.4 % (0-2.0); EOS % 0.5 % (0-4.5); HEMATOCRIT 38.1 % (32.4-45.2); HEMOGLOBIN 12.4 GM/dL (10.7-15.3); LYMPH % 21.8 % (8-40); MCH 32.2 pg (25.7-33.7); MCHC 32.7 g/dl (32.0-36.0); MEAN CELL VOLUME 98.6 fl (80-96); MONO % 5.2 % (3.8-10.2); NEUT % 72.1 % (42.8-82.8); PLATELET COUNT 243 10^3/uL (134-434); RBC 3.86 M/mm3 (3.60-5.2); RDW 14.1 % (11.6-15.6); WHITE BLOOD COUNT 11.1 K/mm3 (4.0-10.0)
[2022-01-01 14:04] LABS: SODIUM 140 mmol/L (136-145)
[2022-01-01 14:06] LABS: CALCIUM 9.5 mg/dL (8.5-10.1)
[2022-01-01 14:07] LABS: ALBUMIN 3.8 g/dl (3.4-5.0); CO2 27 mmol/L (21-32); GLUCOSE,RANDOM 114 mg/dL (74-106)
[2022-01-01 14:10] LABS: CREATININE 0.6 mg/dL (0.55-1.3); SGOT/AST 12 U/L (15-37)
[2022-01-01 14:12] LABS: BILIRUBIN,TOTAL 0.3 mg/dL (0.2-1)
[2022-01-01 14:13] LABS: ALK PHOS 85 U/L (45-117)
[2022-01-01 14:20] LABS: BLOOD UREA NITROGEN 6.9 mg/dL (7-18)
[2022-01-01 14:28] LABS: ANION GAP 6 MMOL/L (8-16); CHLORIDE 106 mmol/L (98-107); SGPT/ALT 29 U/L (13-61)
[2022-01-01] MEDS: VALSARTAN 80 MG TABLET PO SCH ×3 (14:41→21:39)
[2022-01-01] MEDS: LIPASE/PROTEASE/AMYLASE 36,000 UNIT CAPSULE PO SCH ×2 (14:42→17:29)
[2022-01-01] MEDS: RIFAXIMIN 550 MG TABLET PO SCH ×2 (14:42→21:39)
[2022-01-01] MEDS: carBAMazepine 200 MG TABLET PO SCH ×3 (14:42→21:39)
[2022-01-01] MEDS: PANTOPRAZOLE 40 MG TABLET PO SCH ×2 (14:42→21:39)
[2022-01-01] MEDS: METOCLOPRAMIDE HCL 10 MG TABLET (FP) PO SCH ×2 (15:04→21:39)
[2022-01-01] MEDS: GABAPENTIN 100 MG CAPSULE PO SCH ×3 (15:04→21:39)
[2022-01-01 16:39] VITALS: BMI 32.9
[2022-01-01 18:35] LABS: PH,URINE 6.5 (5.0-8.0); URINE APPEARANCE CLEAR; URINE BILIRUBIN NEGATIVE (NEGATIVE); URINE COLOR YELLOW; URINE GLUCOSE (UA) NEGATIVE (NEGATIVE); URINE KETONE NEGATIVE (NEGATIVE); URINE LEUK ESTERASE NEGATIVE (NEGATIVE); URINE NITRITE NEGATIVE (NEGATIVE); URINE PROTEIN NEGATIVE (NEGATIVE); URINE UROBILINOGEN 0.2 mg/dL (0.2-1.0)
[2022-01-01] MEDS: ATORVASTATIN CA 10 MG TABLET (FP) PO SCH (21:39)
[2022-01-02] MEDS: DEXTROSE 5%-NORMAL SALINE 1,000 ML IV SCH ×4 (00:15→17:59)
[2022-01-02] MEDS: GABAPENTIN 100 MG CAPSULE PO SCH ×3 (05:28→21:16)
[2022-01-02] MEDS: RIFAXIMIN 550 MG TABLET PO SCH ×3 (05:28→21:16)
[2022-01-02] MEDS: METOCLOPRAMIDE HCL 10 MG TABLET (FP) PO SCH ×3 (05:28→21:16)
[2022-01-02 07:54] LABS: BASO % 0.6 % (0-2.0); EOS % 1.8 % (0-4.5); HEMATOCRIT 35.7 % (32.4-45.2); HEMOGLOBIN 12.4 GM/dL (10.7-15.3); LYMPH % 22.3 % (8-40); MCH 33.9 pg (25.7-33.7); MCHC 34.8 g/dl (32.0-36.0); MEAN CELL VOLUME 97.5 fl (80-96); MEAN PLT VOLUME 8.2 fl (7.5-11.1); MONO % 6.8 % (3.8-10.2); NEUT % 68.5 % (42.8-82.8); PLATELET COUNT 201 10^3/uL (134-434); RBC 3.66 M/mm3 (3.60-5.2); RDW 13.9 % (11.6-15.6); WHITE BLOOD COUNT 7.4 K/mm3 (4.0-10.0)
[2022-01-02 08:10] LABS: INR 0.98 (0.83-1.09); PROTHROMBIN TIME (PATIENT) 11.3 SEC (9.7-13.0)
[2022-01-02 08:14] LABS: CHLORIDE 111 mmol/L (98-107); SODIUM 142 mmol/L (136-145)
[2022-01-02 08:19] LABS: CALCIUM 8.9 mg/dL (8.5-10.1)
[2022-01-02 08:20] LABS: ALBUMIN 3.6 g/dl (3.4-5.0); ANION GAP 4 MMOL/L (8-16); BLOOD UREA NITROGEN 6.4 mg/dL (7-18); CO2 27 mmol/L (21-32); GLUCOSE,RANDOM 123 mg/dL (74-106)
[2022-01-02 08:23] LABS: BILIRUBIN,TOTAL 0.4 mg/dL (0.2-1); CREATININE 0.6 mg/dL (0.55-1.3); SGOT/AST 10 U/L (15-37); SGPT/ALT 24 U/L (13-61); TOT PROT 6.4 g/dl (6.4-8.2)
[2022-01-02 08:25] LABS: ALK PHOS 79 U/L (45-117)
[2022-01-02] MEDS: LIPASE/PROTEASE/AMYLASE 36,000 UNIT CAPSULE PO SCH ×3 (08:31→17:59)
[2022-01-02] MEDS: HYDROmorphone HCl 2 MG/ML VIAL IM PRN (10:33)
[2022-01-02 13:05] LABS: LIPASE 79 U/L (73-393)
[2022-01-02] MEDS: ATENOLOL 50 MG TABLET (FP) PO SCH (13:06)
[2022-01-02] MEDS: amLODIPine BESYLATE 5 MG TABLET (FP) PO SCH (13:06)
[2022-01-02] MEDS: PANTOPRAZOLE 40 MG TABLET PO SCH ×2 (13:06→21:16)
[2022-01-02] MEDS: VALSARTAN 80 MG TABLET PO SCH ×2 (13:06→21:16)
[2022-01-02] MEDS: carBAMazepine 200 MG TABLET PO SCH ×2 (13:09→21:16)
[2022-01-02] MEDS: ATORVASTATIN CA 10 MG TABLET (FP) PO SCH (21:16)
[2022-01-03] MEDS: METOCLOPRAMIDE HCL 10 MG TABLET (FP) PO SCH ×3 (05:54→21:41)
[2022-01-03] MEDS: RIFAXIMIN 550 MG TABLET PO SCH ×3 (05:54→21:41)
[2022-01-03] MEDS: GABAPENTIN 100 MG CAPSULE PO SCH ×3 (05:54→21:41)
[2022-01-03] MEDS: LIPASE/PROTEASE/AMYLASE 36,000 UNIT CAPSULE PO SCH ×2 (08:21→12:46)
[2022-01-03] MEDS: HYDROmorphone HCl 2 MG/ML VIAL IM PRN (09:10)
[2022-01-03] MEDS: PANTOPRAZOLE 40 MG TABLET PO SCH ×2 (09:12→21:41)
[2022-01-03] MEDS: VALSARTAN 80 MG TABLET PO SCH ×2 (09:12→21:41)
[2022-01-03] MEDS: ATENOLOL 50 MG TABLET (FP) PO SCH (09:12)
[2022-01-03] MEDS: amLODIPine BESYLATE 5 MG TABLET (FP) PO SCH (09:12)
[2022-01-03] MEDS: carBAMazepine 200 MG TABLET PO SCH ×2 (09:12→21:40)
[2022-01-03] MEDS: ATORVASTATIN CA 10 MG TABLET (FP) PO SCH (21:41)
[2022-01-04] MEDS: METOCLOPRAMIDE HCL 10 MG TABLET (FP) PO SCH (05:55)
[2022-01-04] MEDS: RIFAXIMIN 550 MG TABLET PO SCH (05:55)
[2022-01-04] MEDS: GABAPENTIN 100 MG CAPSULE PO SCH (05:55)
[2022-01-04 06:00] VITALS: TEMP 98.6
[2022-01-04] MEDS ORDERED: amLODIPine BESYLATE 5 MG TABLET (FP) PO ONE (06:05)
[2022-01-04 08:13] VITALS: BP 156/94; PULSE 78
[2022-01-04] MEDS: PANTOPRAZOLE 40 MG TABLET PO SCH (09:05)
[2022-01-04] MEDS: ATENOLOL 50 MG TABLET (FP) PO SCH (09:05)
[2022-01-04] MEDS: amLODIPine BESYLATE 5 MG TABLET (FP) PO SCH (09:05)
[2022-01-04] MEDS: VALSARTAN 80 MG TABLET PO SCH (09:06)
[2022-01-04] MEDS: carBAMazepine 200 MG TABLET PO SCH (09:06)
== END 2022-01-04 13:07 | disposition home or self-care (01) | DRG 392 ==
LOC: JER 23:46 → JERBED 01-01 04:11 → J8W 01-01 15:20
PROVIDERS: ADMIT Internal Medicine; ATTEND Family Medicine
DX: R10.9 Unspecified abdominal pain (principal); J98.11 Atelectasis; I25.10 Atherosclerotic heart disease of native coronary artery without angina pectoris; K59.00 Constipation, unspecified; I10 Essential (primary) hypertension; G40.909 Epilepsy, unspecified, not intractable, without status epilepticus; N28.1 Cyst of kidney, acquired; E27.9 Disorder of adrenal gland, unspecified; Z95.5 Presence of coronary angioplasty implant and graft; K58.9 Irritable bowel syndrome, unspecified; E78.5 Hyperlipidemia, unspecified; R79.89 Other specified abnormal findings of blood chemistry; Z87.19 Personal history of other diseases of the digestive system
CPT/HCPCS: 36415; 74018-TC-FY; 74177-TC; 80048; 80053; 81003; 83605; 83690; 83735; 84484; 85025; 85610; 85730; 86140; 93005; 93010; 99285-25; C9803; Q9967; U0003; U0005

== ENCOUNTER 2022-08-14 17:43 | Emergency (ER) | payer OTHER ==
[2022-08-14 17:53] VITALS: BP 155/80; PULSE 76; RESP 18; BMI 32.3
[2022-08-14] MEDS ORDERED: ACETAMINOPHEN 1000 MG/100 ML BAG IVPB ONE (18:39)
[2022-08-14] MEDS ORDERED: ONDANSETRON 4 MG/2 ML VIAL IVPUSH ONE (18:39)
[2022-08-14] MEDS ORDERED: FAMOTIDINE 20 MG/50 ML IVPB 20 MG/50 ML MG IVPB ONE ×2 (18:39→19:04)
[2022-08-14] MEDS ORDERED: morphine CARPU-JECT 4 MG/1 ML DISP.SYRIN IVPUSH ONE (19:01)
[2022-08-14] MEDS ORDERED: LACTATED RINGERS SOLUTION 1000 ML INFUS.BAG IV ONE (19:01)
[2022-08-14] MEDS ORDERED: ACETAMINOPHEN INJECTION 100 ML IVPB ONE (19:04)
[2022-08-14] MEDS ORDERED: morphine SULFATE 4 MG/ML VIAL ONE (19:04)
[2022-08-14] MEDS ORDERED: ONDANSETRON 4 MG/2 ML VIAL ONE (19:04)
[2022-08-14 19:43] LABS: BASO % 0.6 % (0-2.0); EOS % 0.1 % (0-4.5); HEMATOCRIT 42.4 % (32.4-45.2); LYMPH % 7.1 % (8-40); MCH 33.5 pg (25.7-33.7); MEAN CELL VOLUME 101.3 fl (80-96); MEAN PLT VOLUME 8.5 fl (7.5-11.1); MONO % 2.4 % (3.8-10.2); NEUT % 89.8 % (42.8-82.8); PLATELET COUNT 266 10^3/uL (134-434); RBC 4.19 M/mm3 (3.60-5.2); WHITE BLOOD COUNT 16.6 K/mm3 (4.0-10.0)
[2022-08-14 19:55] LABS: ALBUMIN 4.2 g/dl (3.4-5.0); BLOOD UREA NITROGEN 15.7 mg/dL (7-18); CALCIUM 10.3 mg/dL (8.5-10.1); MAGNESIUM 2.4 mg/dL (1.8-2.4)
[2022-08-14 19:59] LABS: CREATININE 0.8 mg/dL (0.55-1.3)
[2022-08-14 20:01] LABS: BILIRUBIN,TOTAL 0.2 mg/dL (0.2-1); TOT PROT 7.8 g/dl (6.4-8.2)
[2022-08-14] MEDS ORDERED: HYDROmorphone HCL CARPU-JECT 2 MG/1 ML DISP.SYRIN IVPUSH ONE (20:06)
[2022-08-14 20:07] LABS: INR 0.93 (0.83-1.09); PROTHROMBIN TIME (PATIENT) 10.7 SEC (9.7-13.0)
[2022-08-14 20:10] LABS: ACTIVATED PTT 27.6 SECONDS (25.2-36.5)
[2022-08-14] MEDS ORDERED: HYDROmorphone HCl 2 MG/ML VIAL ONE (20:14)
== END 2022-08-15 00:14 | disposition home or self-care (01) ==
LOC: JER 17:43
PROC: 3E033NZ Introduction of Analgesics, Hypnotics, Sedatives into Peripheral Vein, Percutaneous Approach (ICD-10-PCS; principal; 2022-08-14)
PROC: 3E033GC Introduction of Other Therapeutic Substance into Peripheral Vein, Percutaneous Approach (ICD-10-PCS; 2022-08-14)
PROC: 3E033GC Introduction of Other Therapeutic Substance into Peripheral Vein, Percutaneous Approach (ICD-10-PCS; 2022-08-14)
DX: R10.13 Epigastric pain (principal)
CPT/HCPCS: 36415; 71046-TC-FY; 74177-TC; 76705-TC; 80053; 83735; 84484; 85025; 85610; 85730; 86850; 86900; 86901; 93005; 93010; 99285-25; Q9967

== ENCOUNTER 2022-08-15 01:25 | Emergency (ER) | payer OTHER ==
[2022-08-15 01:30] VITALS: BMI 32.0
[2022-08-15] MEDS ORDERED: MAG HYDROX/AL HYDROX/SIMETH -MYLANTA- ORAL SUSPENSION PO ONE (02:32)
[2022-08-15] MEDS ORDERED: SUCRALFATE 1 GM/10 ML UNIT DOSE CUPS PO ONE (02:39)
[2022-08-15] MEDS ORDERED: FAMOTIDINE 20 MG TABLET PO ONE (02:44)
[2022-08-15] MEDS ORDERED: METOCLOPRAMIDE HCL INJECTION 10 MG/2 ML VIAL IM ONE (02:44)
[2022-08-15] MEDS ORDERED: ACETAMINOPHEN 500 MG TABLET (FP) PO ONE (02:46)
[2022-08-15] MEDS ORDERED: FAMOTIDINE 20 MG TABLET ONE (02:54)
[2022-08-15] MEDS ORDERED: SUCRALFATE 1 GM TABLET (FP) ONE ×2 (02:55→02:56)
[2022-08-15] MEDS ORDERED: ACETAMINOPHEN 325 MG TABLET (FP) ONE (02:55)
[2022-08-15] MEDS ORDERED: METOCLOPRAMIDE HCL INJECTION 10 MG/2 ML VIAL ONE (02:55)
[2022-08-15] MEDS ORDERED: MAG HYDROX/AL HYDROX/SIMETH 30 ML UNIT-DOSE CUP ONE (02:56)
[2022-08-15 06:50] VITALS: BP 158/77; PULSE 77; RESP 20; TEMP 98.8
== END 2022-08-15 07:05 | disposition home or self-care (01) ==
LOC: JER 01:25
PROC: 3E023GC Introduction of Other Therapeutic Substance into Muscle, Percutaneous Approach (ICD-10-PCS; principal; 2022-08-15)
DX: R11.2 Nausea with vomiting, unspecified (principal); R10.9 Unspecified abdominal pain
CPT/HCPCS: 99284-25

== ENCOUNTER 2023-01-06 04:07 | Day surgery (SDC) | payer OTHER ==
[2023-01-06] MEDS ORDERED: SUCCINYLCHOLINE CHLORIDE 200 MG/10 ML SYRINGE ONE (07:15)
[2023-01-06] MEDS ORDERED: ROCURONIUM BROMIDE 50 MG/5 ML SYRINGE ONE ×2 (07:15→09:59)
[2023-01-06] MEDS ORDERED: LIDOCAINE HCL/PF 2% SDV 5ML VIAL ONE (07:15)
[2023-01-06] MEDS ORDERED: PROPOFOL 20 ML ONE (07:15)
[2023-01-06] MEDS ORDERED: MIDAZOLAM HCL 2 MG/2 ML SINGLE DOSE VIAL ONE (07:15)
[2023-01-06] MEDS ORDERED: HEPARIN NA (PORCINE) 5,000 UNITS/ML 1ML VIAL ONE ×2 (07:53→07:58)
[2023-01-06] MEDS ORDERED: BUPIVACAINE HCL/PF 0.25% (2.5MG/ML) 10 ML VIAL ONE (07:53)
[2023-01-06] MEDS ORDERED: DEXAMETHASONE SOD PHOSPHATE 4 MG/1 ML VIAL ONE (08:25)
[2023-01-06] MEDS ORDERED: ceFAZolin SODIUM 1 GM VIAL IVPB ONE (08:40)
[2023-01-06] MEDS ORDERED: METOPROLOL TARTRATE 5 MG/5 ML VIAL ONE (09:10)
[2023-01-06] MEDS ORDERED: KETOROLAC TROMETHAMINE 30 MG/1 ML VIAL ONE (09:20)
[2023-01-06] MEDS ORDERED: NEOSTIGMINE METHYLSULFATE 0.5 MG/1 ML - 10 ML MDV ONE (09:20)
[2023-01-06] MEDS ORDERED: ONDANSETRON 4 MG/2 ML VIAL ONE ×2 (09:20→12:45)
[2023-01-06] MEDS ORDERED: GLYCOPYRROLATE 0.2 MG/1 ML VIAL ONE (09:21)
[2023-01-06] MEDS ORDERED: hydrALAZINE HCL 20 MG/ML VIAL ONE (09:24)
[2023-01-06] MEDS ORDERED: PROMETHAZINE HCL 25 MG/1 ML VIAL IVPB PRN (10:29)
[2023-01-06] MEDS ORDERED: ONDANSETRON 4 MG/2 ML VIAL IVPUSH PRN (10:29)
[2023-01-06] MEDS ORDERED: ACETAMINOPHEN 1000 MG/100 ML BAG IVPB ONE (10:29)
[2023-01-06] MEDS ORDERED: oxyCODONE HCL 5 MG TABLET PO PRN ×2 (10:29)
[2023-01-06] MEDS ORDERED: LACTATED RINGERS SOLUTION 1,000 ML IV SCH (10:30)
[2023-01-06] MEDS ORDERED: ACETAMINOPHEN INJECTION 100 ML IVPB ONE (10:45)
[2023-01-06] MEDS ORDERED: ALBUTEROL SO4 0.083% IH SOL 2.5 MG/3 ML VIAL.NEB. NEB ONE (11:59)
[2023-01-06] MEDS ORDERED: oxyCODONE HCL 5 MG TABLET ONE (12:45)
[2023-01-06 14:09] VITALS: BP 148/74; PULSE 91; RESP 18; TEMP 97.8
== END 2023-01-06 17:20 | disposition home or self-care (01) ==
LOC: JASU-SURG 04:07
PROVIDERS: ATTEND Surgery
PROC: 8E0W4CZ Robotic Assisted Procedure of Trunk Region, Percutaneous Endoscopic Approach (ICD-10-PCS; 2023-01-06)
PROC: 0WUF4JZ Supplement Abdominal Wall with Synthetic Substitute, Percutaneous Endoscopic Approach (ICD-10-PCS; principal; 2023-01-06 08:00)
DX: K43.9 Ventral hernia without obstruction or gangrene (principal)
CPT/HCPCS: 94760; J1644

== ENCOUNTER 2023-06-15 16:56 | Emergency (ER) | payer OTHER ==
[2023-06-15 17:11] VITALS: BP 152/71; RESP 16; TEMP 72; BMI 33.3
[2023-06-15] MEDS ORDERED: KETOROLAC TROMETHAMINE 30 MG/1 ML VIAL IM ONE (17:46)
== END 2023-06-15 22:39 | disposition home or self-care (01) ==
LOC: JER 16:56 → JERFT 16:56
PROC: 3E0233Z Introduction of Anti-inflammatory into Muscle, Percutaneous Approach (ICD-10-PCS; principal; 2023-06-15)
DX: S93.402A Sprain of unspecified ligament of left ankle, initial encounter (principal); M25.572 Pain in left ankle and joints of left foot; M25.472 Effusion, left ankle; W01.0XXA Fall on same level from slipping, tripping and stumbling without subsequent striking against object, initial encounter; Y93.9 Activity, unspecified; Y92.9 Unspecified place or not applicable
CPT/HCPCS: 73610-TC-LT-FY; 73630-TC-LT; 99284-25

== ENCOUNTER 2023-11-07 14:37 | Emergency (ER) | payer OTHER ==
[2023-11-07 14:53] VITALS: BMI 32.3
[2023-11-07] MEDS ORDERED: MAG HYDROX/AL HYDROX/SIMETH -MYLANTA- ORAL SUSPENSION PO ONE (15:38)
[2023-11-07] MEDS ORDERED: ONDANSETRON 4 MG/2 ML VIAL IVPUSH ONE (15:38)
[2023-11-07] MEDS ORDERED: FAMOTIDINE 20 MG/50 ML IVPB 20 MG/50 ML MG IVPB ONE ×2 (15:38→15:48)
[2023-11-07] MEDS ORDERED: SODIUM CHLORIDE 0.9% 500 ML INFUS.BAG IV ONE (15:38)
[2023-11-07] MEDS ORDERED: ONDANSETRON 4 MG/2 ML VIAL ONE (15:48)
[2023-11-07] MEDS ORDERED: MAG HYDROX/AL HYDROX/SIMETH 30 ML UNIT-DOSE CUP ONE (15:48)
[2023-11-07] MEDS ORDERED: ACETAMINOPHEN 500 MG TABLET (FP) PO ONE (16:17)
[2023-11-07] MEDS ORDERED: ACETAMINOPHEN 500 MG TABLET (FP) ONE (16:19)
[2023-11-07 16:27] LABS: BASO % 0.6 % (0-2.0); EOS % 0.4 % (0-4.5); HEMATOCRIT 38.5 % (32.4-45.2); HEMOGLOBIN 13.7 GM/dL (10.7-15.3); LYMPH % 5.2 % (8-40); MCH 35.3 pg (25.7-33.7); MCHC 35.5 g/dl (32.0-36.0); MEAN CELL VOLUME 99.4 fl (80-96); MEAN PLT VOLUME 7.9 fl (7.5-11.1); MONO % 4.8 % (3.8-10.2); PLATELET COUNT 211 10^3/uL (134-434); RBC 3.87 M/mm3 (3.60-5.2); WHITE BLOOD COUNT 10.3 K/mm3 (4.0-10.0)
[2023-11-07 16:53] LABS: POTASSIUM 3.8 mmol/L (3.5-5.1)
[2023-11-07 16:55] LABS: CALCIUM 9.5 mg/dL (8.5-10.1)
[2023-11-07 16:56] LABS: BLOOD UREA NITROGEN 6.7 mg/dL (7-18)
[2023-11-07 16:59] LABS: CREATININE 0.6 mg/dL (0.55-1.3)
[2023-11-07 17:01] LABS: BILIRUBIN,TOTAL 0.5 mg/dL (0.2-1); TOT PROT 7.5 g/dl (6.4-8.2)
[2023-11-07 21:39] VITALS: BP 143/78; PULSE 74; RESP 18; TEMP 99.2
== END 2023-11-07 21:39 | disposition home or self-care (01) ==
LOC: JER 14:37
PROC: 3E033GC Introduction of Other Therapeutic Substance into Peripheral Vein, Percutaneous Approach (ICD-10-PCS; principal; 2023-11-07)
PROC: 3E033GC Introduction of Other Therapeutic Substance into Peripheral Vein, Percutaneous Approach (ICD-10-PCS; 2023-11-07)
DX: R10.13 Epigastric pain (principal); R11.0 Nausea; R09.89 Other specified symptoms and signs involving the circulatory and respiratory systems; R09.81 Nasal congestion; R05.9 Cough, unspecified; J34.89 Other specified disorders of nose and nasal sinuses; J39.2 Other diseases of pharynx; R50.9 Fever, unspecified; K29.70 Gastritis, unspecified, without bleeding; J10.1 Influenza due to other identified influenza virus with other respiratory manifestations; Z20.822 Contact with and (suspected) exposure to COVID-19
CPT/HCPCS: 0241U-QW; 36415; 71046-TC-FY; 80053; 83690; 84484; 85025; 93005; 93010; 99285-25

== ENCOUNTER 2024-04-22 18:13 | Emergency (ER) | payer OTHER ==
[2024-04-22 18:20] VITALS: BP 107/74; PULSE 67; RESP 18; TEMP 98.6; BMI 32.3
[2024-04-22] MEDS ORDERED: ACETAMINOPHEN INJECTION 100 ML IVPB ONE (19:32)
[2024-04-22] MEDS ORDERED: MAG HYDROX/AL HYDROX/SIMETH 30 ML UNIT-DOSE CUP ONE (19:32)
[2024-04-22] MEDS ORDERED: FAMOTIDINE 20 MG/50 ML IVPB 20 MG/50 ML MG IVPB ONE (19:32)
[2024-04-22] MEDS ORDERED: ONDANSETRON 4 MG/2 ML VIAL ONE (19:32)
[2024-04-22] MEDS: SODIUM CHLORIDE 0.9% 500 ML INFUS.BAG IV ONE (19:40)
[2024-04-22] MEDS: ACETAMINOPHEN 1000 MG/100 ML BAG IVPB ONE (19:40)
[2024-04-22] MEDS: FAMOTIDINE 20 MG/50 ML IVPB 20 MG/50 ML MG IVPB ONE (19:40)
[2024-04-22] MEDS: MAG HYDROX/AL HYDROX/SIMETH 30 ML UNIT-DOSE CUP PO ONE (19:40)
[2024-04-22] MEDS: ONDANSETRON 4 MG/2 ML VIAL IVPUSH ONE (19:40)
[2024-04-22 20:25] LABS: POTASSIUM 4.2 mmol/L (3.5-5.1)
[2024-04-22 20:27] LABS: CALCIUM 9.4 mg/dL (8.5-10.1)
[2024-04-22 20:28] LABS: ALBUMIN 3.6 g/dl (3.4-5.0)
[2024-04-22 20:30] LABS: CREATININE 0.7 mg/dL (0.55-1.3)
[2024-04-22 20:32] LABS: BILIRUBIN,TOTAL 0.3 mg/dL (0.2-1); TOT PROT 7.1 g/dl (6.4-8.2)
[2024-04-22] MEDS ORDERED: HYDROmorphone HCl 2 MG/ML VIAL ONE (21:16)
[2024-04-22] MEDS ORDERED: METOCLOPRAMIDE HCL INJECTION 10 MG/2 ML VIAL ONE (21:16)
[2024-04-22] MEDS: METOCLOPRAMIDE HCL INJECTION 10 MG/2 ML VIAL IVPB ONE (21:26)
[2024-04-22] MEDS: HYDROmorphone HCl 2 MG/ML VIAL IVPUSH ONE (21:26)
[2024-04-22 21:55] LABS: BASO % 0.9 % (0-2.0); EOS % 0.9 % (0-4.5); HEMATOCRIT 36.6 % (32.4-45.2); HEMOGLOBIN 12.4 GM/dL (10.7-15.3); LYMPH % 11.5 % (8-40); MCH 34.1 pg (25.7-33.7); MCHC 33.8 g/dl (32.0-36.0); MEAN PLT VOLUME 7.3 fl (7.5-11.1); MONO % 3.5 % (3.8-10.2); NEUT % 83.2 % (42.8-82.8); PLATELET COUNT 219 10^3/uL (134-434); RBC 3.62 M/mm3 (3.60-5.2); RDW 13.9 % (11.6-15.6); WHITE BLOOD COUNT 15.2 K/mm3 (4.0-10.0)
[2024-04-22] MEDS ORDERED: PANTOPRAZOLE SODIUM 40 MG/100 ML BAG IVPB ONE (23:38)
[2024-04-22] MEDS: PANTOPRAZOLE SODIUM 40 MG VIAL IVPUSH ONE (23:47)
== END 2024-04-23 00:25 | disposition home or self-care (01) ==
LOC: JER 18:13
PROC: 3E033GC Introduction of Other Therapeutic Substance into Peripheral Vein, Percutaneous Approach (ICD-10-PCS; principal; 2024-04-22)
PROC: 3E033GC Introduction of Other Therapeutic Substance into Peripheral Vein, Percutaneous Approach (ICD-10-PCS; 2024-04-22)
PROC: 3E033GC Introduction of Other Therapeutic Substance into Peripheral Vein, Percutaneous Approach (ICD-10-PCS; 2024-04-22)
PROC: 3E033GC Introduction of Other Therapeutic Substance into Peripheral Vein, Percutaneous Approach (ICD-10-PCS; 2024-04-22)
PROC: 3E033NZ Introduction of Analgesics, Hypnotics, Sedatives into Peripheral Vein, Percutaneous Approach (ICD-10-PCS; 2024-04-22)
PROC: 3E033NZ Introduction of Analgesics, Hypnotics, Sedatives into Peripheral Vein, Percutaneous Approach (ICD-10-PCS; 2024-04-22)
DX: R10.13 Epigastric pain (principal); R11.2 Nausea with vomiting, unspecified; R14.0 Abdominal distension (gaseous); R10.33 Periumbilical pain
CPT/HCPCS: 36415; 74177-TC; 80053; 83605; 83690; 84484; 85025; 93005; 93010; 99285-25; J0131; Q9967

== ENCOUNTER 2024-05-05 18:00 | Inpatient (IN) | payer OTHER ==
[2024-05-05 18:09] VITALS: BMI 32.3
[2024-05-05] MEDS ORDERED: MAG HYDROX/AL HYDROX/SIMETH 30 ML UNIT-DOSE CUP ONE (19:18)
[2024-05-05] MEDS: MAG HYDROX/AL HYDROX/SIMETH 30 ML UNIT-DOSE CUP PO ONE (19:29)
[2024-05-05] MEDS ORDERED: ACETAMINOPHEN INJECTION 100 ML IVPB ONE (19:30)
[2024-05-05] MEDS: ACETAMINOPHEN 1000 MG/100 ML BAG IVPB ONE (20:00)
[2024-05-05] MEDS ORDERED: SUCRALFATE 1 GM TABLET (FP) ONE (20:00)
[2024-05-05] MEDS ORDERED: ONDANSETRON 4 MG/2 ML VIAL ONE (20:01)
[2024-05-05] MEDS ORDERED: FAMOTIDINE 20 MG/50 ML IVPB 20 MG/50 ML MG IVPB ONE (20:01)
[2024-05-05] MEDS: FAMOTIDINE 20 MG/50 ML IVPB 20 MG/50 ML MG IVPB ONE (20:11)
[2024-05-05] MEDS: ONDANSETRON 4 MG/2 ML VIAL IVPUSH ONE (20:11)
[2024-05-05] MEDS: SUCRALFATE 1 GM/10 ML UNIT DOSE CUPS PO ONE (20:11)
[2024-05-05 20:17] LABS: INR 0.87 (0.83-1.09); PROTHROMBIN TIME (PATIENT) 10.1 SEC (9.7-13.0)
[2024-05-05 20:19] LABS: ACTIVATED PTT 27.1 SECONDS (25.2-36.5); BASO % 0.8 % (0-2.0); EOS % 0.2 % (0-4.5); HEMATOCRIT 41.9 % (32.4-45.2); HEMOGLOBIN 13.9 GM/dL (10.7-15.3); LYMPH % 6.5 % (8-40); MCH 33.5 pg (25.7-33.7); MCHC 33.2 g/dl (32.0-36.0); MEAN CELL VOLUME 100.9 fl (80-96); MEAN PLT VOLUME 8.2 fl (7.5-11.1); MONO % 1.8 % (3.8-10.2); NEUT % 90.7 % (42.8-82.8); PLATELET COUNT 282 10^3/uL (134-434); RBC 4.15 M/mm3 (3.60-5.2); RDW 13.9 % (11.6-15.6); WHITE BLOOD COUNT 16.4 K/mm3 (4.0-10.0)
[2024-05-05] MEDS ORDERED: morphine SULFATE 4 MG/ML VIAL ONE (20:20)
[2024-05-05] MEDS: morphine CARPU-JECT 4 MG/1 ML DISP.SYRIN IVPUSH ONE ×2 (20:23→20:30)
[2024-05-05] MEDS: SODIUM CHLORIDE 0.9% 500 ML INFUS.BAG IV ONE (20:23)
[2024-05-05 20:29] LABS: CHLORIDE 106 mmol/L (98-107); SODIUM 142 mmol/L (136-145)
[2024-05-05 20:31] LABS: CALCIUM 10.1 mg/dL (8.5-10.1)
[2024-05-05 20:32] LABS: ALBUMIN 4.3 g/dl (3.4-5.0); BLOOD UREA NITROGEN 12.1 mg/dL (7-18); CO2 30 mmol/L (21-32); GLUCOSE,RANDOM 137 mg/dL (74-106)
[2024-05-05] MEDS ORDERED: HYDROmorphone HCL CARPU-JECT 2 MG/1 ML DISP.SYRIN ONE (20:34)
[2024-05-05 20:35] LABS: CREATININE 0.8 mg/dL (0.55-1.3); SGOT/AST 60 U/L (15-37)
[2024-05-05 20:37] LABS: BILIRUBIN,TOTAL 0.4 mg/dL (0.2-1)
[2024-05-05 20:38] LABS: ALK PHOS 115 U/L (45-117)
[2024-05-05] MEDS: HYDROmorphone HCl 2 MG/ML VIAL IVPUSH STA (20:38)
[2024-05-05 20:42] LABS: ANION GAP 6 mmol/L (4-13); POTASSIUM 6.6 mmol/L (3.5-5.1); SGPT/ALT 28 U/L (13-61)
[2024-05-05 22:25] LABS: URINE APPEARANCE CLEAR; URINE BILIRUBIN NEGATIVE (NEGATIVE); URINE COLOR YELLOW; URINE GLUCOSE (UA) TRACE (NEGATIVE); URINE KETONE NEGATIVE (NEGATIVE); URINE LEUK ESTERASE NEGATIVE (NEGATIVE); URINE NITRITE NEGATIVE (NEGATIVE); URINE PROTEIN NEGATIVE (NEGATIVE); URINE UROBILINOGEN 0.2 mg/dL (0.2-1.0)
[2024-05-05 23:43] LABS: POTASSIUM 4.3 mmol/L (3.5-5.1)
[2024-05-05 23:44] LABS: BLOOD UREA NITROGEN 10.1 mg/dL (7-18); CALCIUM 9.1 mg/dL (8.5-10.1)
[2024-05-05 23:48] LABS: CREATININE 0.6 mg/dL (0.55-1.3)
[2024-05-06] MEDS ORDERED: HYDROmorphone HCL CARPU-JECT 2 MG/1 ML DISP.SYRIN ONE ×2 (01:45→06:15)
[2024-05-06] MEDS: HYDROmorphone HCl 2 MG/ML VIAL IVPUSH ONE (01:50)
[2024-05-06] MEDS ORDERED: ONDANSETRON 4 MG/2 ML VIAL ONE (06:08)
[2024-05-06] MEDS: ONDANSETRON 4 MG/2 ML VIAL IVPUSH PRN (06:13)
[2024-05-06] MEDS: HYDROmorphone HCL CARPU-JECT 2 MG/1 ML DISP.SYRIN IVPB ONE (06:23)
[2024-05-06 07:15] LABS: BASO % 0.7 % (0-2.0); EOS % 0.1 % (0-4.5); HEMATOCRIT 36.8 % (32.4-45.2); HEMOGLOBIN 12.6 GM/dL (10.7-15.3); LYMPH % 10.6 % (8-40); MCH 34.3 pg (25.7-33.7); MCHC 34.3 g/dl (32.0-36.0); NEUT % 85.6 % (42.8-82.8); PLATELET COUNT 255 10^3/uL (134-434); RBC 3.68 M/mm3 (3.60-5.2); RDW 13.9 % (11.6-15.6); WHITE BLOOD COUNT 13.8 K/mm3 (4.0-10.0)
[2024-05-06] MEDS: METOCLOPRAMIDE HCL INJECTION 10 MG/2 ML VIAL IVPUSH PRN (10:28)
[2024-05-06] MEDS: ACETAMINOPHEN 1000 MG/100 ML BAG IVPB PRN (10:34)
[2024-05-06] MEDS ORDERED: HYDROmorphone HCl 2 MG/ML VIAL IVPB PRN (11:20)
[2024-05-06] MEDS: LACTATED RINGERS SOLUTION 1,000 ML/1,000 ML INFUS.BAG IV SCH (12:15)
[2024-05-06] MEDS: ATENOLOL 50 MG TABLET (FP) PO SCH (12:16)
[2024-05-06] MEDS: amLODIPine BESYLATE 5 MG TABLET (FP) PO SCH (12:16)
[2024-05-06] MEDS: carBAMazepine 200 MG TABLET PO SCH (12:16)
[2024-05-06 13:21] LABS: METHADONE, UR NEGATIVE (NEGATIVE); PHENCYCLIDINE,URINE NEGATIVE (NEGATIVE); URINE AMPHETAMINES NEGATIVE (NEGATIVE); URINE BENZODIAZEPINES NEGATIVE (NEGATIVE)
[2024-05-06 13:22] LABS: URINE BARBITURATES NEGATIVE (NEGATIVE)
[2024-05-06 13:40] LABS: COCAINE, UR NEGATIVE (NEGATIVE); OPIATES, URI POSITIVE (NEGATIVE)
[2024-05-06] MEDS: METOCLOPRAMIDE HCL INJECTION 10 MG/2 ML VIAL IVPUSH SCH ×2 (14:59→17:38)
[2024-05-06] MEDS: ISOSORBIDE MONONITRATE 30 MG TAB.SR.24H (FP) PO SCH (15:19)
[2024-05-06] MEDS: GABAPENTIN 100 MG CAPSULE PO SCH (15:19)
[2024-05-06] MEDS: RIFAXIMIN 550 MG TABLET PO SCH (21:39)
[2024-05-06] MEDS ORDERED: FAMOTIDINE 20 MG TABLET PO SCH (22:00)
[2024-05-07] MEDS: HYDROmorphone HCL CARPU-JECT 2 MG/1 ML DISP.SYRIN IVPB PRN (05:47)
[2024-05-07 10:37] LABS: POTASSIUM 3.4 mmol/L (3.5-5.1)
[2024-05-07 10:38] LABS: CALCIUM 9.3 mg/dL (8.5-10.1)
[2024-05-07 10:39] LABS: BLOOD UREA NITROGEN 7.2 mg/dL (7-18); MAGNESIUM 2.1 mg/dL (1.8-2.4)
[2024-05-07] MEDS: PANTOPRAZOLE 40 MG TABLET PO SCH (10:39)
[2024-05-07 10:42] LABS: CREATININE 0.6 mg/dL (0.55-1.3); PHOSPHOROUS 2.1 mg/dL (2.5-4.9)
[2024-05-08] MEDS ORDERED: SIMETHICONE 80 MG TAB.CHEW (FP) PO PRN (15:52)
[2024-05-08] MEDS: SUCRALFATE 1 GM/10 ML UNIT DOSE CUPS PO SCH (17:56)
[2024-05-08] MEDS ORDERED: ACETAMINOPHEN 1000 MG/100 ML BAG IVPB ONE (20:15)
[2024-05-08] MEDS: ACETAMINOPHEN 1000 MG/100 ML BAG IVPB ONE (21:49)
[2024-05-08] MEDS: POTASSIUM CHLORIDE ORAL LIQUID 20 MEQ/15 ML PO ONE (23:58)
[2024-05-08] MEDS: BISACODYL 10 MG SUPP.RECT PR PRN (23:59)
[2024-05-09] MEDS: amLODIPine BESYLATE 5 MG TABLET (FP) PO ONE (05:32)
[2024-05-09 07:52] LABS: BASO % 0.5 % (0-2.0); EOS % 0.4 % (0-4.5); HEMATOCRIT 36.9 % (32.4-45.2); HEMOGLOBIN 13.1 GM/dL (10.7-15.3); LYMPH % 10.9 % (8-40); MCH 34.5 pg (25.7-33.7); MCHC 35.4 g/dl (32.0-36.0); MEAN CELL VOLUME 97.5 fl (80-96); MEAN PLT VOLUME 7.6 fl (7.5-11.1); MONO % 4.6 % (3.8-10.2); NEUT % 83.6 % (42.8-82.8); PLATELET COUNT 229 10^3/uL (134-434); RBC 3.79 M/mm3 (3.60-5.2); RDW 13.3 % (11.6-15.6); WHITE BLOOD COUNT 11.7 K/mm3 (4.0-10.0)
[2024-05-09 08:10] LABS: POTASSIUM 3.6 mmol/L (3.5-5.1)
[2024-05-09 08:13] LABS: ALBUMIN 3.7 g/dl (3.4-5.0); CALCIUM 9.1 mg/dL (8.5-10.1)
[2024-05-09 08:14] LABS: MAGNESIUM 1.9 mg/dL (1.8-2.4)
[2024-05-09 08:16] LABS: CREATININE 0.6 mg/dL (0.55-1.3)
[2024-05-09] MEDS ORDERED: ACETAMINOPHEN 1000 MG/100 ML BAG IVPB PRN (08:16)
[2024-05-09 08:18] LABS: BILIRUBIN,TOTAL 0.6 mg/dL (0.2-1)
[2024-05-09] MEDS: VALSARTAN 80 MG TABLET PO SCH (09:25)
[2024-05-09] MEDS: LIPASE/PROTEASE/AMYLASE 36,000 UNIT CAPSULE PO SCH (09:26)
[2024-05-09] MEDS: POLYETHYLENE GLYCOL (HEALTHYLAX) 3350 17 GM PACKET PO SCH (09:26)
[2024-05-09] MEDS: ACETAMINOPHEN 1000 MG/100 ML BAG IVPB ONE (09:27)
[2024-05-09] MEDS: METHYLNALTREXONE BROMIDE 8 MG/0.4 ML SYRINGE SQ SCH (12:58)
[2024-05-09 15:09] LABS: PROTEIN S, FREE 91 % (61-136)
[2024-05-09 16:09] LABS: DRVVT - 37.4 sec (0.0-47.0)
[2024-05-09] MEDS: SUCRALFATE 1 GM/10 ML UNIT DOSE CUPS PO SCH (17:58)
[2024-05-10 06:34] VITALS: BP 145/79; PULSE 72; RESP 20; TEMP 97.9
[2024-05-10] MEDS: SUCRALFATE 1 GM/10 ML UNIT DOSE CUPS PO SCH (09:18)
== END 2024-05-10 10:07 | disposition home or self-care (01) | DRG 392 ==
LOC: JER 18:00 → JERBED 05-06 02:12 → J8W 05-06 09:11 → OBSVTOIN 05-09 10:29
PROVIDERS: ADMIT Internal Medicine; ATTEND Family Medicine
DX: R10.11 Right upper quadrant pain (principal); I25.10 Atherosclerotic heart disease of native coronary artery without angina pectoris; E78.5 Hyperlipidemia, unspecified; I10 Essential (primary) hypertension; G40.909 Epilepsy, unspecified, not intractable, without status epilepticus; K58.9 Irritable bowel syndrome, unspecified; R11.2 Nausea with vomiting, unspecified; R10.13 Epigastric pain; Z95.5 Presence of coronary angioplasty implant and graft
CPT/HCPCS: 36415; 71275-TC; 74174-TC; 76705-TC; 80048; 80053; 80307; 81003; 81240; 81241; 83605; 83690; 83735; 84100; 84484; 85025; 85303; 85610; 85613; 85730; 85732; 86850; 86900; 86901; 87040; 87086; 93005; 93010; 99285-25; G0378; J0131; Q9967

== ENCOUNTER 2025-08-13 03:41 | Emergency (ER) | payer OTHER ==
[2025-08-13 03:47] VITALS: RESP 20; TEMP 97.9; BMI 32.3
[2025-08-13] MEDS ORDERED: FAMOTIDINE 20 MG/50 ML IVPB 20 MG/50 ML MG IVPB ONE (04:16)
[2025-08-13] MEDS ORDERED: MAG HYDROX/AL HYDROX/SIMETH 30 ML UNIT-DOSE CUP ONE (04:33)
[2025-08-13] MEDS ORDERED: ONDANSETRON 4 MG/2 ML VIAL ONE (04:33)
[2025-08-13] MEDS: ONDANSETRON 4 MG/2 ML VIAL IVPUSH ONE (04:36)
[2025-08-13] MEDS: MAG HYDROX/AL HYDROX/SIMETH 30 ML UNIT-DOSE CUP PO ONE (04:36)
[2025-08-13] MEDS ORDERED: FAMOTIDINE 10 MG/ML VIAL IVPB ONE (04:38)
[2025-08-13 04:44] LABS: ABSOLUTE IMMATURE GRANULOCYTES 0.06 x10^3/uL (0.0-0.031); BASOPHILS # 0.04 x10^3/uL (0.01-0.08); EOSINOPHIL % 1.5 % (0.7-5.8); EOSINOPHILS # 0.19 x10^3/uL (0.04-0.36); MCHC 33.2 g/dl (32.2-35.5); MEAN CELL VOLUME 99.5 fl (79.4-94.8); MEAN PLT VOLUME 10.2 fl (9.4-12.3); MONOCYTE # 0.31 x10^3/uL (0.24-0.86); MONOCYTE % 2.5 % (4.7-12.5); RDW 12.5 % (12.4-16.4)
[2025-08-13 05:02] LABS: GLUCOSE,RANDOM 165.0 mg/dL (74-106)
[2025-08-13 05:03] LABS: TOT PROT 7.2 g/dl (6.4-8.2)
[2025-08-13 05:04] LABS: CO2 24.0 mmol/L (21-32)
[2025-08-13 05:06] LABS: ALK PHOS 102.0 U/L (40-150)
[2025-08-13 05:08] LABS: SGOT/AST 16.0 U/L (5-34); SGPT/ALT 13.0 U/L (0-55)
[2025-08-13 05:09] LABS: CREATININE 0.57 mg/dL (0.55-1.3)
[2025-08-13] MEDS ORDERED: ACETAMINOPHEN INJECTION 100 ML ONE (05:34)
[2025-08-13] MEDS: ACETAMINOPHEN 1000 MG/100 ML BAG IVPB ONE (05:41)
[2025-08-13 08:10] VITALS: BP 158/77; PULSE 70
[2025-08-13] MEDS ORDERED: KETOROLAC TROMETHAMINE 30 MG/1 ML VIAL ONE (08:58)
[2025-08-13] MEDS: KETOROLAC TROMETHAMINE 30 MG/1 ML VIAL IM ONE (09:04)
== END 2025-08-13 09:29 | disposition home or self-care (01) ==
LOC: JER 03:41
PROC: 3E033NZ Introduction of Analgesics, Hypnotics, Sedatives into Peripheral Vein, Percutaneous Approach (ICD-10-PCS; principal; 2025-08-13)
PROC: 3E033GC Introduction of Other Therapeutic Substance into Peripheral Vein, Percutaneous Approach (ICD-10-PCS; 2025-08-13)
PROC: 3E0233Z Introduction of Anti-inflammatory into Muscle, Percutaneous Approach (ICD-10-PCS; 2025-08-13)
DX: R10.84 Generalized abdominal pain (principal); R11.2 Nausea with vomiting, unspecified
CPT/HCPCS: 36415; 74177-TC; 80053; 83605; 83690; 83735; 84484; 85025; 93005; 93010; 99285-25; Q9967